=== PATIENT | female | born 1940 | race Caucasian/White ===

== ENCOUNTER 2017-03-11 09:36 | Inpatient (IN) | payer OTHER ==
[2017-03-11] MEDS ORDERED: NS 1000 ML 1,000 ML IV ONE (11:39)
[2017-03-11 11:59] VITALS: BMI 24.2
[2017-03-11 12:15] LABS: BASOPHILS # (AUTO) 0.1 X10^3/uL (0.0-0.1); EOSINOPHILS # (AUTO) 0.1 x10^3/uL (0.0-0.2); HEMATOCRIT 35.3 % (36.0-47.0); HEMOGLOBIN 12.4 g/dL (12.0-16.0); LYMPHOCYTES # (AUTO) 1.6 X10^3/uL (1.3-2.9); LYMPHOCYTES % (AUTO) 23.2 % (21.0-51.0); MEAN CORPUSCULAR HEMOGLOBIN 32.5 pg (27.0-34.0); MEAN CORPUSCULAR VOLUME 92.7 fL (80.0-100.0); MONOCYTES # (AUTO) 0.6 x10^3/uL (0.3-0.8); MONOCYTES % (AUTO) 8.7 % (0.0-13.0); NEUTROPHILS # (AUTO) 4.5 x10^3/uL (2.2-4.8); NEUTROPHILS % (AUTO) 66.1 % (42.0-75.0); PLATELET COUNT 326 X10^3/uL (150.0-450.0); RED BLOOD COUNT 3.81 X10^6/uL (3.5-5.4); RED CELL DISTRIBUTION WIDTH 14.4 % (11.6-16.5); WHITE BLOOD COUNT 6.9 X10^3/uL (3.6-10.0)
[2017-03-11 12:31] LABS: ALANINE AMINOTRANSFERASE 34 Units/L (12-78); ALBUMIN 4.2 g/dL (3.4-5.0); ALKALINE PHOSPHATASE 81 Units/L (46-116); ASPARTATE AMINO TRANSFERASE 19 Units/L (15-37); BLOOD UREA NITROGEN 26 mg/dL (7-18); CALCIUM 9.8 mg/dL (8.5-10.1); CARBON DIOXIDE 31.2 mmol/L (21-32); CHLORIDE 92 mmol/L (98-107); CREATININE 0.93 mg/dL (0.55-1.02); GLUCOSE 103 mg/dL (65-99); SODIUM 127 mmol/L (136-145); TOTAL PROTEIN 7.9 g/dL (6.4-8.2); eGFR BLACK RACES > 60 (>60); eGFR NON BLACK RACES > 60 (>60)
[2017-03-11 13:22] LABS: BILIRUBIN,URINE NEGATIVE (NEGATIVE); BLOOD/HEMOGLOBIN,URINE NEGATIVE (NEGATIVE); GLUCOSE, URINE NEGATIVE (NEGATIVE); KETONES,URINE NEGATIVE (NEGATIVE); LEUKOCYTE ESTERASE ,URINE 1+ (NEGATIVE); NITRITES,URINE NEGATIVE (NEGATIVE); PROTEIN,URINE NEGATIVE (NEGATIVE); UROBILINOGEN,URINE NORMAL (NORMAL)
[2017-03-11 13:28] LABS: AMORPHOUS SEDIMENT,UR TRACE /HPF (NEGATIVE); APPEARANCE,URINE SLIGHTLY HAZY (CLEAR); BACTERIA,URINE 2+ /HPF (NEGATIVE); COLOR,URINE YELLOW (YELLOW); RBC,URINE 0-1 /HPF (NEGATIVE); SQUAMOUS EPITHELIAL CELL,UR FEW /HPF (NEGATIVE)
--- NOTE | 2017-03-11 15:54 | CT ---
HEAD CT WITHOUT IV CONTRAST CLINICAL INDICATION: History of CVA. Possible CVA. Brain surgery 1 month ago. TECHNIQUE: Axial CT images from skull base to vertex without IV contrast.Dose reduction techniques i ncluding Automated Exposure Control (AEC) and adjustment of mA and kV were utlized. COMPARISON: 01/02/2011 FINDINGS: Diffuse patchy and confluent white matter hypoattenuation with associated volume loss suprasellar an eurysm clips are present. More focal encephalomalacia in the left temporal lobe. Stable lacunar infa rct in the right head of caudate. There is no evidence of acute infarction, intracranial hemorrhage, mass or mass effect, or abnormal extra-axial collection. The density of the larger dural venous sin uses is normal. The ventricles are normal in size, shape and position. The skull base and calvarium are normal. The included paranasal sinuses and mastoid air cells are predominantly clear. IMPRESSION: 1. No acute intracranial abnormality. If there is definite, focal, acute neurologic deficit, MRI wit h diffusion-weighted imaging would be more sensitive for detection of acute stroke. 2. Chronic microangiopathic changes and ex vacuo dilatation of the ventricles and sulci. Suprasellar aneurysm clips. Old lacunar infarct in the right caudate head as well as encephalomalacia in the le ft temporal lobe. Reported By:
--- NOTE | 2017-03-11 16:07 | RAD ---
Chest, one view Indication: Altered mental status Comparison: 03/21/2015 Findings: There is ill-defined haziness of the left mid to lower lung. No focal right lung infiltrat e identified. There are chronic interstitial changes of both lungs. Previous left mastectomy and axi llary dissection noted with left breast implant. Unremarkable cardiac silhouette. Impression: 1. Haziness of the left lung may be related to superimposition artifact from breast implant, althoug h infiltrate, atelectasis, and/or pleural effusion cannot be excluded. Correlation recommended. Two- view chest could be helpful. Reported By:
[2017-03-11] MEDS: NS 1000 ML 1,000 ML IV SCH (17:46)
[2017-03-11] MEDS: XANAX PO PRN (20:42)
[2017-03-11] MEDS: PEPCID TAB 20 MG PO SCH (20:42)
[2017-03-11] MEDS: LIPITOR TAB 20 MG PO SCH (20:42)
[2017-03-11] MEDS: HYDROCHLOROTHIAZIDE 25 MG TAB PO SCH (20:42)
[2017-03-11] MEDS: LOPRESSOR TAB 50 MG PO SCH (20:50)
[2017-03-11] MEDS ORDERED: PLAVIX PO SCH (21:00)
[2017-03-12] MEDS: NS 1000 ML 1,000 ML IV SCH ×2 (05:48→22:15)
[2017-03-12 06:07] LABS: BASOPHILS # (AUTO) 0.1 X10^3/uL (0.0-0.1); BASOPHILS % (AUTO) 0.8 % (0.2-1.0); EOSINOPHILS # (AUTO) 0.1 x10^3/uL (0.0-0.2); EOSINOPHILS % (AUTO) 2.2 % (0.9-2.9); HEMATOCRIT 32.1 % (36.0-47.0); HEMOGLOBIN 11.4 g/dL (12.0-16.0); LYMPHOCYTES # (AUTO) 1.8 X10^3/uL (1.3-2.9); LYMPHOCYTES % (AUTO) 27.3 % (21.0-51.0); MEAN CORPUSCULAR HEMOGLOBIN 32.8 pg (27.0-34.0); MEAN CORPUSCULAR HGB CONC 35.6 g/dL (33.0-35.0); MEAN CORPUSCULAR VOLUME 92.3 fL (80.0-100.0); MEAN PLATELET VOLUME 7.4 fL (7.4-11.0); MONOCYTES # (AUTO) 0.7 x10^3/uL (0.3-0.8); MONOCYTES % (AUTO) 10.6 % (0.0-13.0); NEUTROPHILS # (AUTO) 3.8 x10^3/uL (2.2-4.8); NEUTROPHILS % (AUTO) 59.1 % (42.0-75.0); PLATELET COUNT 284 X10^3/uL (150.0-450.0); RED BLOOD COUNT 3.48 X10^6/uL (3.5-5.4); RED CELL DISTRIBUTION WIDTH 14.3 % (11.6-16.5); WHITE BLOOD COUNT 6.5 X10^3/uL (3.6-10.0)
[2017-03-12 06:43] LABS: ALANINE AMINOTRANSFERASE 28 Units/L (12-78); ALBUMIN 3.6 g/dL (3.4-5.0); ALKALINE PHOSPHATASE 69 Units/L (46-116); ASPARTATE AMINO TRANSFERASE 18 Units/L (15-37); BLOOD UREA NITROGEN 16 mg/dL (7-18); CALCIUM 9.4 mg/dL (8.5-10.1); CARBON DIOXIDE 26.3 mmol/L (21-32); CHLORIDE 98 mmol/L (98-107); CREATININE 0.62 mg/dL (0.55-1.02); GLUCOSE 86 mg/dL (65-99); SODIUM 132 mmol/L (136-145); TOTAL PROTEIN 6.8 g/dL (6.4-8.2); eGFR BLACK RACES > 60 (>60); eGFR NON BLACK RACES > 60 (>60)
[2017-03-12] MEDS ORDERED: ASPIRIN PO SCH (09:00)
[2017-03-12] MEDS ORDERED: CELEXA PO SCH ×2 (09:00→11:06)
[2017-03-12] MEDS: XANAX PO PRN ×2 (10:29→22:15)
[2017-03-12] MEDS: PEPCID TAB 20 MG PO SCH ×2 (10:29→20:34)
[2017-03-12] MEDS: COZAAR PO SCH (10:29)
[2017-03-12] MEDS: LOPRESSOR TAB 50 MG PO SCH (10:30)
[2017-03-12] MEDS: HYDROCHLOROTHIAZIDE 25 MG TAB PO SCH ×2 (10:30→20:36)
--- NOTE | 2017-03-12 11:21 | DR.UPDATE ---
H&P Update History and Physical Update: WAS SEEN IN OUR OFFICE TODAY. A H&P WAS COMPLETED PRIOR TO ADMISSION. PATIENT HAS BEEN SEEN AND EXAMINED WITH NO CHANGES NOTED. Changes noted: NO Yes with the following:
[2017-03-12 11:26] LABS: BILIRUBIN,URINE NEGATIVE (NEGATIVE); BLOOD/HEMOGLOBIN,URINE NEGATIVE (NEGATIVE); GLUCOSE, URINE NEGATIVE (NEGATIVE); KETONES,URINE 1+ (NEGATIVE); LEUKOCYTE ESTERASE ,URINE 2+ (NEGATIVE); NITRITES,URINE NEGATIVE (NEGATIVE); PH,URINE 6.5 (5.0 - 8.0); PROTEIN,URINE NEGATIVE (NEGATIVE); UROBILINOGEN,URINE NORMAL (NORMAL)
[2017-03-12 11:28] LABS: COLOR,URINE YELLOW (YELLOW)
[2017-03-12 11:42] LABS: RBC,URINE RARE /HPF (NEGATIVE)
[2017-03-12 11:43] LABS: AMORPHOUS SEDIMENT,UR 1+ /HPF (NEGATIVE); BACTERIA,URINE 2+ /HPF (NEGATIVE); RENAL EPITHELIAL CELLS,URINE RARE /HPF (NEGATIVE); SQUAMOUS EPITHELIAL CELL,UR NUMEROUS /HPF (NEGATIVE)
--- NOTE | 2017-03-12 11:53 | RAD ---
HISTORY: Shortness of breath Study: PA and lateral chest Comparison: Yesterday Findings: The trachea is midline. The cardiac silhouette is unremarkable. The lungs are clear without focal infiltrate or effusion. The bony thorax is unremarkable. There are surgical clips in the left axil la. IMPRESSION: 1. No acute cardiopulmonary disease. Reported By:
[2017-03-12 12:19] LABS: APPEARANCE,URINE SLIGHTLY HAZY (CLEAR)
[2017-03-12] MEDS: COLACE CAP 100 MG PO PRN (20:34)
[2017-03-12] MEDS: LIPITOR TAB 20 MG PO SCH (20:36)
[2017-03-12] MEDS: RESTORIL CAP 15 MG PO PRN (20:36)
[2017-03-12] MEDS ORDERED: MILK OF MAGNESIA PO PRN (21:00)
[2017-03-13] MEDS: NS 1000 ML 1,000 ML IV SCH ×3 (02:40→15:40)
[2017-03-13 06:22] LABS: BASOPHILS # (AUTO) 0.1 X10^3/uL (0.0-0.1); BASOPHILS % (AUTO) 0.8 % (0.2-1.0); EOSINOPHILS # (AUTO) 0.1 x10^3/uL (0.0-0.2); HEMATOCRIT 32.6 % (36.0-47.0); HEMOGLOBIN 11.5 g/dL (12.0-16.0); LYMPHOCYTES # (AUTO) 1.7 X10^3/uL (1.3-2.9); LYMPHOCYTES % (AUTO) 23.6 % (21.0-51.0); MEAN CORPUSCULAR HEMOGLOBIN 32.4 pg (27.0-34.0); MEAN CORPUSCULAR HGB CONC 35.2 g/dL (33.0-35.0); MEAN CORPUSCULAR VOLUME 92.2 fL (80.0-100.0); MEAN PLATELET VOLUME 7.2 fL (7.4-11.0); MONOCYTES # (AUTO) 0.7 x10^3/uL (0.3-0.8); MONOCYTES % (AUTO) 9.1 % (0.0-13.0); NEUTROPHILS # (AUTO) 4.7 x10^3/uL (2.2-4.8); NEUTROPHILS % (AUTO) 65.5 % (42.0-75.0); PLATELET COUNT 294 X10^3/uL (150.0-450.0); RED BLOOD COUNT 3.54 X10^6/uL (3.5-5.4); WHITE BLOOD COUNT 7.2 X10^3/uL (3.6-10.0)
[2017-03-13 06:31] LABS: ALANINE AMINOTRANSFERASE 29 Units/L (12-78); ALBUMIN 3.5 g/dL (3.4-5.0); ALKALINE PHOSPHATASE 73 Units/L (46-116); ASPARTATE AMINO TRANSFERASE 16 Units/L (15-37); BLOOD UREA NITROGEN 8 mg/dL (7-18); CALCIUM 9.3 mg/dL (8.5-10.1); CARBON DIOXIDE 28.7 mmol/L (21-32); CHLORIDE 99 mmol/L (98-107); CREATININE 0.51 mg/dL (0.55-1.02); GLUCOSE 91 mg/dL (65-99); SODIUM 133 mmol/L (136-145); TOTAL PROTEIN 6.9 g/dL (6.4-8.2); eGFR BLACK RACES > 60 (>60); eGFR NON BLACK RACES > 60 (>60)
[2017-03-13] MEDS ORDERED: K-DUR TAB 20 MEQ PO PRN (06:43)
[2017-03-13] MEDS ORDERED: K-RIDER 10 MEQ/NS 100 ML 10 MEQ/100 ML BAG IV PRN (06:43)
[2017-03-13] MEDS ORDERED: K-LYTE EFFERVESCENT PO PRN (06:43)
[2017-03-13] MEDS ORDERED: POTASSIUM CHLORIDE LIQ 20 MEQ UDC PO PRN (06:43)
[2017-03-13] MEDS: HYDROCHLOROTHIAZIDE 25 MG TAB PO SCH ×3 (08:33→21:20)
[2017-03-13] MEDS: TOPROL XL PO SCH ×2 (08:33→10:01)
[2017-03-13] MEDS: PEPCID TAB 20 MG PO SCH ×2 (08:33→21:21)
[2017-03-13] MEDS: XANAX PO PRN ×2 (08:33→21:20)
[2017-03-13] MEDS: COZAAR PO SCH (11:25)
[2017-03-13] MEDS ORDERED: HALDOL INJ IM ONE (15:15)
[2017-03-13] MEDS: ROCEPHIN VIAL 1 GM 1 GM in NS 50 ML IV + SPIKE MINIBAG* 50 ML IV SCH (17:16)
[2017-03-13] MEDS: PROTONIX INJ 40 MG VIAL IVP SCH (17:16)
[2017-03-13] MEDS: RESTORIL CAP 15 MG PO PRN (21:20)
[2017-03-13] MEDS: LIPITOR TAB 20 MG PO SCH (21:20)
[2017-03-14 06:35] LABS: ALANINE AMINOTRANSFERASE 30 Units/L (12-78); ALBUMIN 3.6 g/dL (3.4-5.0); ALKALINE PHOSPHATASE 75 Units/L (46-116); ASPARTATE AMINO TRANSFERASE 21 Units/L (15-37); BLOOD UREA NITROGEN 9 mg/dL (7-18); CALCIUM 9.6 mg/dL (8.5-10.1); CARBON DIOXIDE 29.2 mmol/L (21-32); CHLORIDE 96 mmol/L (98-107); CREATININE 0.59 mg/dL (0.55-1.02); GLUCOSE 89 mg/dL (65-99); SODIUM 130 mmol/L (136-145); TOTAL PROTEIN 7.2 g/dL (6.4-8.2); eGFR BLACK RACES > 60 (>60); eGFR NON BLACK RACES > 60 (>60)
[2017-03-14 07:45] LABS: BASOPHILS # (AUTO) 0.1 X10^3/uL (0.0-0.1); BASOPHILS % (AUTO) 1.3 % (0.2-1.0); EOSINOPHILS # (AUTO) 0.1 x10^3/uL (0.0-0.2); EOSINOPHILS % (AUTO) 0.9 % (0.9-2.9); HEMATOCRIT 34.6 % (36.0-47.0); HEMOGLOBIN 12.3 g/dL (12.0-16.0); LYMPHOCYTES # (AUTO) 1.7 X10^3/uL (1.3-2.9); MEAN CORPUSCULAR HEMOGLOBIN 32.9 pg (27.0-34.0); MEAN CORPUSCULAR HGB CONC 35.5 g/dL (33.0-35.0); MEAN CORPUSCULAR VOLUME 92.8 fL (80.0-100.0); MEAN PLATELET VOLUME 6.7 fL (7.4-11.0); MONOCYTES # (AUTO) 0.6 x10^3/uL (0.3-0.8); MONOCYTES % (AUTO) 8.8 % (0.0-13.0); NEUTROPHILS # (AUTO) 4.5 x10^3/uL (2.2-4.8); PLATELET COUNT 309 X10^3/uL (150.0-450.0); RED BLOOD COUNT 3.73 X10^6/uL (3.5-5.4); RED CELL DISTRIBUTION WIDTH 14.2 % (11.6-16.5); WHITE BLOOD COUNT 6.9 X10^3/uL (3.6-10.0)
[2017-03-14] MEDS: NS 1000 ML 1,000 ML IV SCH ×2 (08:03→18:03)
[2017-03-14] MEDS: XANAX PO PRN ×2 (08:24→20:57)
[2017-03-14] MEDS: ROCEPHIN VIAL 1 GM 1 GM in NS 50 ML IV + SPIKE MINIBAG* 50 ML IV SCH (08:24)
[2017-03-14] MEDS: HYDROCHLOROTHIAZIDE 25 MG TAB PO SCH ×2 (08:24→20:57)
[2017-03-14] MEDS: PROTONIX INJ 40 MG VIAL IVP SCH (08:24)
[2017-03-14] MEDS: COZAAR PO SCH (08:24)
[2017-03-14] MEDS: TOPROL XL PO SCH (08:24)
[2017-03-14] MEDS: PEPCID TAB 20 MG PO SCH ×2 (08:25→20:57)
--- NOTE | 2017-03-14 09:01 | RAD ---
HISTORY: Shortness of breath Study: Single view of the chest Comparison: March 12, 2017 Findings: The patient is slightly rotated. The cardiac silhouette is unremarkable. The lungs are clear witho ut focal infiltrate or effusion. Hazy opacification over the left lower lobe may reflect overlying s oft tissues. If symptoms persist and if practical followup exam to include PA and lateral views may be helpful. The aortic knob is partially calcified. IMPRESSION: 1. No acute cardiopulmonary disease. Reported By:
[2017-03-14] MEDS: VANCOMYCIN 1 GM PREMIX (ADDVANTAGE) 250 ML IV SCH (20:53)
[2017-03-14] MEDS: RESTORIL CAP 15 MG PO PRN (20:56)
[2017-03-14] MEDS: LIPITOR TAB 20 MG PO SCH (20:56)
[2017-03-15] MEDS: NS 1000 ML 1,000 ML IV SCH ×2 (05:29→07:23)
[2017-03-15 05:55] LABS: ALANINE AMINOTRANSFERASE 29 Units/L (12-78); ALBUMIN 3.4 g/dL (3.4-5.0); ALKALINE PHOSPHATASE 77 Units/L (46-116); ASPARTATE AMINO TRANSFERASE 17 Units/L (15-37); BLOOD UREA NITROGEN 8 mg/dL (7-18); CALCIUM 9.4 mg/dL (8.5-10.1); CARBON DIOXIDE 30.2 mmol/L (21-32); CHLORIDE 98 mmol/L (98-107); CREATININE 0.64 mg/dL (0.55-1.02); GLUCOSE 92 mg/dL (65-99); SODIUM 134 mmol/L (136-145); TOTAL PROTEIN 6.8 g/dL (6.4-8.2); eGFR BLACK RACES > 60 (>60); eGFR NON BLACK RACES > 60 (>60)
--- NOTE | 2017-03-15 06:11 | RAD ---
HISTORY: Shortness of breath Study: Chest one view Comparison: March 14, 2017 Findings: The trachea is midline. The cardiac silhouette is unremarkable. The aorta is calcified. The lungs a re clear without focal infiltrate or effusion. The bony thorax is unremarkable. IMPRESSION: 1. No acute cardiopulmonary disease. Reported By:
[2017-03-15 06:18] LABS: BASOPHILS # (AUTO) 0.1 X10^3/uL (0.0-0.1); BASOPHILS % (AUTO) 1.1 % (0.2-1.0); EOSINOPHILS # (AUTO) 0.1 x10^3/uL (0.0-0.2); EOSINOPHILS % (AUTO) 2.3 % (0.9-2.9); HEMATOCRIT 32.9 % (36.0-47.0); HEMOGLOBIN 11.7 g/dL (12.0-16.0); LYMPHOCYTES # (AUTO) 1.7 X10^3/uL (1.3-2.9); LYMPHOCYTES % (AUTO) 27.8 % (21.0-51.0); MEAN CORPUSCULAR HEMOGLOBIN 32.9 pg (27.0-34.0); MEAN CORPUSCULAR HGB CONC 35.6 g/dL (33.0-35.0); MEAN CORPUSCULAR VOLUME 92.4 fL (80.0-100.0); MEAN PLATELET VOLUME 7.2 fL (7.4-11.0); MONOCYTES # (AUTO) 0.6 x10^3/uL (0.3-0.8); MONOCYTES % (AUTO) 9.1 % (0.0-13.0); NEUTROPHILS # (AUTO) 3.7 x10^3/uL (2.2-4.8); NEUTROPHILS % (AUTO) 59.7 % (42.0-75.0); PLATELET COUNT 277 X10^3/uL (150.0-450.0); RED BLOOD COUNT 3.56 X10^6/uL (3.5-5.4); RED CELL DISTRIBUTION WIDTH 14.4 % (11.6-16.5); WHITE BLOOD COUNT 6.2 X10^3/uL (3.6-10.0)
[2017-03-15] MEDS: VANCOMYCIN 1 GM PREMIX (ADDVANTAGE) 250 ML IV SCH ×2 (08:03→20:35)
[2017-03-15] MEDS: COZAAR PO SCH (08:04)
[2017-03-15] MEDS: PROTONIX INJ 40 MG VIAL IVP SCH (08:04)
[2017-03-15] MEDS: PEPCID TAB 20 MG PO SCH ×2 (08:05→20:40)
[2017-03-15] MEDS: HYDROCHLOROTHIAZIDE 25 MG TAB PO SCH ×2 (08:05→20:37)
[2017-03-15] MEDS: TOPROL XL PO SCH (08:05)
[2017-03-15] MEDS: XANAX PO PRN ×3 (08:05→20:37)
[2017-03-15] MEDS ORDERED: LEVSIN/MAALOX/LIDOC VISC PO PRN (09:22)
[2017-03-15] MEDS: MEGACE PO SCH ×2 (10:04→20:37)
--- NOTE | 2017-03-15 10:32 | PCM.PROG ---
Progress Note - Progress Note for Day of Date: 03/15/17 - Subjective Subjective: IS ALERT AND ORIENTED ON MORNING ROUNDS. PHYSICAL THERAPY IS IN ROOM AND HAS PATIENT WALKING TO BED FROM THE BATHROOM. SHE IS NOTED WITH COMPLAINTS OF EPIGASTRIC AND SUPRAPUBIC PAIN. PATIENT'S STATES THAT SHE HAS BEEN CONFUSED OVER THE WEEKEND, BUT THAT SEEMS TO HAVE IMPROVED THIS MORNING. ON EXAMINATION, LUNGS ARE CLEAR TO AUSCULTATION. BOWEL SOUNDS ARE NORMAL IN ALL QUADRANTS. VITALS THIS AM ARE 97.8-59-13-96%-148/54. CBC WNL EXCEPT HCT 11.7, HCT 32.9. CMP WNL EXCEPT SODIUM 134, POTASSIUM 3.3. URINE MICROBIOLOGY REPORTS ENTEROCOCCUS FAECALIS, WHICH IS SENSITIVE TO THE VANCOMYCIN THAT SHE IS CURRENTLY ON. WE WILL START HER ON GI COCKTAIL 15ML QID FOR EPIGASTRIC PAIN AND MEGACE 40MG BID TO STIMULATE HER APPETITE. WE WILL RECKECK LABS AND FOLLOW UP WITH PATIENT IN AM. - Past Medical Family Social History Past Med/Fam/Surg Hx: No changes since H&P Allergies: Allergies amoxicillin Allergy (Verified 03/11/17 11:37) Penicillins Allergy (Verified 03/11/17 11:37) - Review of Systems ROS: No change since H&P - Vital Signs and I&O's Vital Signs: Temperature 98.5 F Pulse Rate [Apical] 59 Respiratory Rate 14 Blood Pressure [Right Calf] 164/73 Blood Pressure [Right Arm] 113/55 Blood Pressure 155/77 O2 Sat by Pulse Oximetry 96 Intake and Output: Intake & Output 03/12/17 03/13/17 03/14/17 03/15/17 11:59 11:59 11:59 11:59 Intake Total 2318 2102 2046 3055 Output Total 1650 2900 601 1200 Balance 668 -[phone] - Physical Exam Oriented: Normal Eyes: Normal Ear: Normal Nose: Normal Throat: Normal Respiratory: Normal Cardiovascular: Normal : Normal Auscultation: Bowel Sounds: Normal Palpation: Normal Tenderness: Suprapubic. negative: Normal, Diffuse, RUQ, RLQ, LUQ, LLQ, Epigastric, Periumbilical, Mild, Moderate, Severe, Rebound, Guarding, Rigidity, Other Skin: Normal. negative: Decreased Turgur, Rash, Papular, Macular, Maculopapular , Vesicular, Pustular, Petechial, Red, Tender, Hot, Diaphoresis, Wound, Bruising , Ecchymosis, Other Musculoskeletal: Normal. negative: Right, Left, Shoulder, Clavicle, Arm, Elbow , Forearm, Wrist, Hand, Hip, Thigh, Knee, Leg, Ankle, Foot, Back:Thoracic, Back: Lumbar, Back:Midline, Back:Paraspinous, Pelvis, Swelling, Tender, Deformity, Pulse Deficit, Motor Deficit, Sensory Deficit, Instability, Crepitance Psychiatric: Normal. negative: Anxiety, Depression, Agitation, Other Mood Description: Calm. negative: Angry, Apathetic, Depressed, Fearful, Flat, Happy, Hostile, Sad, Suspicious, Withdrawn, Anxious, Appropriate, Labile Affect: Anxious. negative: Angry, Depressed, Flat, Hysterical, Quiet, Violent, Normal Speech Pattern: Clear, Appropriate - Laboratory and Diagnostics Result Diagrams: 03/15/17 05:20 03/15/17 08:54 Labs: 03/12/17 11:04 Urine,Clean Catch Urine Culture - Final Enterococcus Faecalis Laboratory WBC 6.2 X10^3/uL (3.6-10.0) 03/15/17 05:20 RBC 3.56 X10^6/uL (3.5-5.4) 03/15/17 05:20 Hgb 11.7 g/dL (12.0-16.0) L 03/15/17 05:20 Hct 32.9 % (36.0-47.0) L 03/15/17 05:20 MCV 92.4 fL (80.0-100.0) 03/15/17 05:20 MCH 32.9 pg (27.0-34.0) 03/15/17 05:20 MCHC 35.6 g/dL (33.0-35.0) H 03/15/17 05:20 RDW 14.4 % (11.6-16.5) 03/15/17 05:20 Plt Count 277 X10^3/uL (150.0-450.0) 03/15/17 05:20 MPV 7.2 fL (7.4-11.0) L 03/15/17 05:20 Neut % 59.7 % (42.0-75.0) 03/15/17 05:20 Lymph % 27.8 % (21.0-51.0) 03/15/17 05:20 [place] % 9.1 % (0.0-13.0) 03/15/17 05:20 Eos % 2.3 % (0.9-2.9) 03/15/17 05:20 Baso % 1.1 % (0.2-1.0) H 03/15/17 05:20 Neut # 3.7 x10^3/uL (2.2-4.8) 03/15/17 05:20 Lymph # 1.7 X10^3/uL (1.3-2.9) 03/15/17 05:20 [place] # 0.6 x10^3/uL (0.3-0.8) 03/15/17 05:20 Eos # 0.1 x10^3/uL (0.0-0.2) 03/15/17 05:20 Baso # 0.1 X10^3/uL (0.0-0.1) 03/15/17 05:20 Absolute Nucleated RBC 0.1 /100WBC 03/15/17 05:20 Sodium 134 mmol/L (136-145) L 03/15/17 05:20 Corrected Sodium TNP 03/15/17 05:20 Potassium 3.7 mmol/L (3.5-5.1) 03/15/17 08:54 Chloride 98 mmol/L (98-107) 03/15/17 05:20 Carbon Dioxide 30.2 mmol/L (21-32) 03/15/17 05:20 BUN 8 mg/dL (7-18) 03/15/17 05:20 Creatinine 0.64 mg/dL (0.55-1.02) 03/15/17 05:20 Est GFR (MDRD) Af Amer > 60 (>60) 03/15/17 05:20 Est GFR (MDRD) Non-Af > 60 (>60) 03/15/17 05:20 Glucose 92 mg/dL (65-99) 03/15/17 05:20 Calcium 9.4 mg/dL (8.5-10.1) 03/15/17 05:20 Corrected Calcium TNP 03/15/17 05:20 Magnesium 2.0 mg/dL (1.7-2.9) 03/11/17 12:00 Total Bilirubin 0.40 mg/dL (0.2-1.0) 03/15/17 05:20 AST 17 Units/L (15-37) 03/15/17 05:20 ALT 29 Units/L (12-78) 03/15/17 05:20 Alkaline Phosphatase 77 Units/L (46-116) 03/15/17 05:20 Total Protein 6.8 g/dL (6.4-8.2) 03/15/17 05:20 Albumin 3.4 g/dL (3.4-5.0) 03/15/17 05:20 Globulin 3.4 g/dL (2.5-4.5) 03/15/17 05:20 Albumin/Globulin Ratio 1.0 Ratio (1.1-2.1) L 03/15/17 05:20 Specimen Type Clean catch urine 03/12/17 11:04 Urine Color Yellow (YELLOW) 03/12/17 11:04 Urine Appearance Slightly hazy (CLEAR) 03/12/17 11:04 Urine pH 6.5 (5.0 - 8.0) 03/12/17 11:04 Ur Specific [place] 1.010 (1.000-1.030) 03/12/17 11:04 Urine Protein Negative (NEGATIVE) 03/12/17 11:04 Urine Glucose (UA) Negative (NEGATIVE) 03/12/17 11:04 Urine Ketones 1+ (NEGATIVE) 03/12/17 11:04 Urine Occult Blood Negative (NEGATIVE) 03/12/17 11:04 Urine Nitrite Negative (NEGATIVE) 03/12/17 11:04 Urine Bilirubin Negative (NEGATIVE) 03/12/17 11:04 Urine Urobilinogen Normal (NORMAL) 03/12/17 11:04 Ur Leukocyte Esterase 2+ (NEGATIVE) 03/12/17 11:04 Urine RBC Rare /HPF (NEGATIVE) 03/12/17 11:04 Urine WBC 10 - 20 with clumps /HPF (NEGATIVE) 03/12/17 11:04 Ur Squamous Epith Cells Numerous /HPF (NEGATIVE) 03/12/17 11:04 Ur Renal Epithelial Cell Rare /HPF (NEGATIVE) 03/12/17 11:04 Amorphous Sediment 1+ /HPF (NEGATIVE) 03/12/17 11:04 Urine Bacteria 2+ /HPF (NEGATIVE) 03/12/17 11:04 Ur Culture Indicated? Yes/culture set up 03/12/17 11:04 - Plan (1) Enterococcus UTI Status: Acute Plan: VANCOMYCIN 1 GM IV Q12H, CONTINUE TO MONITOR (2) Weakness generalized Status: Acute Plan: CONTINUE NORMAL SALINE, START MEGACE 40MG PO BID, CONTINUE TO MONITOR (3) GERD (gastroesophageal reflux disease) Status: Chronic Qualifiers: Esophagitis presence: esophagitis presence not specified Qualified Code(s) : K21.9 - Gastro-esophageal reflux disease without esophagitis Plan: CONTINUE PEPCID 20MG PO BID, CONTINUE PROTONIX 40MG IV DAILY, START GI COCKTAIL 15ML PO QID, CONTINUE TO MONITOR (4) HTN (hypertension) Status: Chronic Qualifiers: Hypertension type: essential hypertension Qualified Code(s): I10 - Essential (primary) hypertension Plan: CONTINUE TOPROL XL 50MG PO DAILY, CONTINUE TO MONITOR, CONTINUE COZAAR 100MG PO DAILY, CONTINUE HCTZ 25MG PO BID (5) Anxiety Status: Chronic Plan: CONTINUE XANAX 0.5MG TID PRN, CONTINUE TO MONITOR (6) Hyperlipidemia Status: Chronic Qualifiers: Hyperlipidemia type: mixed hyperlipidemia Qualified Code(s): E78.2 - Mixed hyperlipidemia Plan: CONTINUE LIPITOR 20MG PO HS, CONTINUE TO MONITOR
--- NOTE | 2017-03-15 12:55 | MRI ---
STUDY: MRI OF THE BRAIN WITHOUT GADOLINIUM HISTORY: Altered mental status. Weakness. History CVA. Headaches and tremors. Technique: Multiplanar multi-sequence MRI of the brain was obtained utilizing standard departmental protocol. Sagittal and axial T1, axial T2, FLAIR, diffusion (DWI/ADC) images through the brain were performed. Comparison: Head CT dated March 11, 2017. Findings: The sulci, cisterns and ventricles are prominent consistent with diffuse volume loss. There are conf luent and scattered foci of T2 prolongation in the periventricular and subcortical white matter of b oth hemispheres. This is a nonspecific finding which likely represents microangiopathic change in a patient of this age. There is focal encephalomalacia involving the anterior left temporal lobe. Ther e is extensive confluent T2 hyperintensity in the periventricular and subcortical white matter of th e left temporal. There are abnormal focal susceptibility effects in the right and left supra clinoid regions, which c orrespond to foci of beam hardening from aneurysm coils seen on the prior head CT. There is a puncta te focus of susceptibility in the right frontal centrum semiovale. There is no evidence of acute ter ritorial infarction, hemorrhage, mass, mass effect, or midline shift. There are no abnormal intra-ax ial or extra-axial fluid collections. The major intracranial vascular flow voids appear intact. The right vertebral artery appears dominan t. IMPRESSION: 1. Focal encephalomalacia in the left anterior temporal lobe, with periventricular and subcortical gliosis in the left upper lobe. 2. Abnormal susceptibility effects in region of the supra clinoid ICA bilaterally, most consistent with aneurysm coils. 3. Nonspecific white matter change and volume loss. Reported By:
[2017-03-15] MEDS: COLACE CAP 100 MG PO PRN (20:36)
[2017-03-15] MEDS: LIPITOR TAB 20 MG PO SCH (20:36)
[2017-03-15] MEDS: RESTORIL CAP 15 MG PO PRN (20:36)
[2017-03-16 06:13] LABS: BASOPHILS # (AUTO) 0.1 X10^3/uL (0.0-0.1); EOSINOPHILS # (AUTO) 0.2 x10^3/uL (0.0-0.2); EOSINOPHILS % (AUTO) 2.3 % (0.9-2.9); HEMATOCRIT 32.9 % (36.0-47.0); HEMOGLOBIN 11.6 g/dL (12.0-16.0); LYMPHOCYTES # (AUTO) 2.2 X10^3/uL (1.3-2.9); LYMPHOCYTES % (AUTO) 32.1 % (21.0-51.0); MEAN CORPUSCULAR HEMOGLOBIN 32.7 pg (27.0-34.0); MEAN CORPUSCULAR HGB CONC 35.3 g/dL (33.0-35.0); MEAN CORPUSCULAR VOLUME 92.5 fL (80.0-100.0); MEAN PLATELET VOLUME 7.2 fL (7.4-11.0); MONOCYTES # (AUTO) 0.7 x10^3/uL (0.3-0.8); MONOCYTES % (AUTO) 9.6 % (0.0-13.0); NEUTROPHILS # (AUTO) 3.8 x10^3/uL (2.2-4.8); PLATELET COUNT 300 X10^3/uL (150.0-450.0); RED BLOOD COUNT 3.56 X10^6/uL (3.5-5.4); RED CELL DISTRIBUTION WIDTH 14.1 % (11.6-16.5); WHITE BLOOD COUNT 6.8 X10^3/uL (3.6-10.0)
[2017-03-16 06:18] LABS: ALANINE AMINOTRANSFERASE 32 Units/L (12-78); ALBUMIN 3.5 g/dL (3.4-5.0); ALKALINE PHOSPHATASE 77 Units/L (46-116); ASPARTATE AMINO TRANSFERASE 16 Units/L (15-37); BLOOD UREA NITROGEN 11 mg/dL (7-18); CALCIUM 9.5 mg/dL (8.5-10.1); CARBON DIOXIDE 30.5 mmol/L (21-32); CHLORIDE 100 mmol/L (98-107); CREATININE 0.65 mg/dL (0.55-1.02); GLUCOSE 90 mg/dL (65-99); SODIUM 136 mmol/L (136-145); eGFR BLACK RACES > 60 (>60); eGFR NON BLACK RACES > 60 (>60)
--- NOTE | 2017-03-16 06:24 | RAD ---
HISTORY: Shortness of breath Study: Chest one view Comparison: March 15, 2017, March 14, 2017 Findings: The trachea is midline. The cardiac silhouette is upper limits normal in size. No congestive heart failure is noted.. The lungs are clear without focal infiltrate or effusion. The bony thorax is un remarkable. IMPRESSION: 1. No acute cardiopulmonary disease. Reported By:
[2017-03-16] MEDS: NS 1000 ML 1,000 ML IV SCH ×3 (07:03→21:26)
[2017-03-16] MEDS: COZAAR PO SCH (08:44)
[2017-03-16] MEDS: PROTONIX INJ 40 MG VIAL IVP SCH (08:44)
[2017-03-16] MEDS: HYDROCHLOROTHIAZIDE 25 MG TAB PO SCH ×2 (08:45→20:58)
[2017-03-16] MEDS: PEPCID TAB 20 MG PO SCH ×2 (08:45→20:58)
[2017-03-16] MEDS: MEGACE PO SCH ×2 (08:45→20:58)
[2017-03-16] MEDS: XANAX PO PRN ×2 (08:45→20:59)
[2017-03-16] MEDS: TOPROL XL PO SCH (08:45)
[2017-03-16 08:57] LABS: CREATININE 0.66 mg/dL (0.55-1.02)
[2017-03-16] MEDS: VANCOMYCIN 1 GM PREMIX (ADDVANTAGE) 250 ML IV SCH ×2 (09:06→20:57)
--- NOTE | 2017-03-16 09:41 | PCM.PROG ---
Progress Note - Progress Note for Day of Date: 03/16/17 - Subjective Subjective: IS ALERT AND ORIENTED ON MORNING ROUNDS. PHYSICAL THERAPY IS IN ROOM AND HAS PATIENT WALKING TO HALLWAY. THEY REPORT THAT PATIENT IS WEEK AND NEEDS ASSISTANCE TO AMBULATE. PATIENT DENIES PAIN AT THIS TIME. SHE IS NOTED WITH NO COMPLAINTS. ON EXAMINATION, LUNGS ARE CLEAR TO AUSCULTATION. BOWEL SOUNDS ARE NORMAL IN ALL QUADRANTS. VITALS THIS AM ARE 97.8-68-17-98%-104/ 90. CBC WNL EXCEPT HGB 11.6, HCT 32.9. CMP WNL. WE WILL CONTINUE WITH CURRENT PLAN OF CARE AND ARRANGE FOR HOME HEALTH AND PHYSICAL THERAPY FOR PATIENT AT HOME. WE WILL RECKECK LABS AND FOLLOW UP WITH PATIENT IN AM. - Past Medical Family Social History Past Med/Fam/Surg Hx: No changes since H&P Allergies: Allergies amoxicillin Allergy (Verified 03/11/17 11:37) Penicillins Allergy (Verified 03/11/17 11:37) - Review of Systems ROS: No change since H&P - Vital Signs and I&O's Vital Signs: Temperature 97.8 F Pulse Rate [Apical] 68 Respiratory Rate 17 Blood Pressure [Right Calf] 164/73 Blood Pressure [Right Arm] 104/90 Blood Pressure 155/77 O2 Sat by Pulse Oximetry 98 Intake and Output: Intake & Output 03/13/17 03/14/17 03/15/17 03/16/17 11:59 11:59 11:59 11:59 Intake Total 2102 2046 3055 2550 Output Total 2900 601 1200 2553 Balance -798 1445 1855 -3 - Physical Exam Oriented: Normal Eyes: Normal Ear: Normal Nose: Normal Throat: Normal Respiratory: Normal Cardiovascular: Normal : Normal Auscultation: Bowel Sounds: Normal Palpation: Normal Tenderness: Suprapubic. negative: Normal, Diffuse, RUQ, RLQ, LUQ, LLQ, Epigastric, Periumbilical, Mild, Moderate, Severe, Rebound, Guarding, Rigidity, Other Skin: Normal. negative: Decreased Turgur, Rash, Papular, Macular, Maculopapular , Vesicular, Pustular, Petechial, Red, Tender, Hot, Diaphoresis, Wound, Bruising , Ecchymosis, Other Musculoskeletal: Normal. negative: Right, Left, Shoulder, Clavicle, Arm, Elbow , Forearm, Wrist, Hand, Hip, Thigh, Knee, Leg, Ankle, Foot, Back:Thoracic, Back: Lumbar, Back:Midline, Back:Paraspinous, Pelvis, Swelling, Tender, Deformity, Pulse Deficit, Motor Deficit, Sensory Deficit, Instability, Crepitance Psychiatric: Normal. negative: Anxiety, Depression, Agitation, Other Mood Description: Calm. negative: Angry, Apathetic, Depressed, Fearful, Flat, Happy, Hostile, Sad, Suspicious, Withdrawn, Anxious, Appropriate, Labile Affect: Anxious. negative: Angry, Depressed, Flat, Hysterical, Quiet, Violent, Normal Speech Pattern: Clear, Appropriate - Laboratory and Diagnostics Result Diagrams: 03/16/17 05:39 03/16/17 08:05 Labs: 03/13/17 16:46 Blood Blood Culture - Preliminary 03/13/17 15:40 Blood Blood Culture - Preliminary 03/12/17 11:04 Urine,Clean Catch Urine Culture - Final Enterococcus Faecalis Laboratory WBC 6.8 X10^3/uL (3.6-10.0) 03/16/17 05:39 RBC 3.56 X10^6/uL (3.5-5.4) 03/16/17 05:39 Hgb 11.6 g/dL (12.0-16.0) L 03/16/17 05:39 Hct 32.9 % (36.0-47.0) L 03/16/17 05:39 MCV 92.5 fL (80.0-100.0) 03/16/17 05:39 MCH 32.7 pg (27.0-34.0) 03/16/17 05:39 MCHC 35.3 g/dL (33.0-35.0) H 03/16/17 05:39 RDW 14.1 % (11.6-16.5) 03/16/17 05:39 Plt Count 300 X10^3/uL (150.0-450.0) 03/16/17 05:39 MPV 7.2 fL (7.4-11.0) L 03/16/17 05:39 Neut % 55.0 % (42.0-75.0) 03/16/17 05:39 Lymph % 32.1 % (21.0-51.0) 03/16/17 05:39 [place] % 9.6 % (0.0-13.0) 03/16/17 05:39 Eos % 2.3 % (0.9-2.9) 03/16/17 05:39 Baso % 1.0 % (0.2-1.0) 03/16/17 05:39 Neut # 3.8 x10^3/uL (2.2-4.8) 03/16/17 05:39 Lymph # 2.2 X10^3/uL (1.3-2.9) 03/16/17 05:39 [place] # 0.7 x10^3/uL (0.3-0.8) 03/16/17 05:39 Eos # 0.2 x10^3/uL (0.0-0.2) 03/16/17 05:39 Baso # 0.1 X10^3/uL (0.0-0.1) 03/16/17 05:39 Absolute Nucleated RBC 0.0 /100WBC 03/16/17 05:39 Sodium 136 mmol/L (136-145) 03/16/17 05:39 Corrected Sodium TNP 03/16/17 05:39 Potassium 3.8 mmol/L (3.5-5.1) 03/16/17 05:39 Chloride 100 mmol/L (98-107) 03/16/17 05:39 Carbon Dioxide 30.5 mmol/L (21-32) 03/16/17 05:39 BUN 11 mg/dL (7-18) 03/16/17 05:39 Creatinine 0.66 mg/dL (0.55-1.02) 03/16/17 08:05 Est GFR (MDRD) Af Amer > 60 (>60) 03/16/17 05:39 Est GFR (MDRD) Non-Af > 60 (>60) 03/16/17 05:39 Glucose 90 mg/dL (65-99) 03/16/17 05:39 Calcium 9.5 mg/dL (8.5-10.1) 03/16/17 05:39 Corrected Calcium TNP 03/16/17 05:39 Magnesium 2.0 mg/dL (1.7-2.9) 03/11/17 12:00 Total Bilirubin 0.40 mg/dL (0.2-1.0) 03/16/17 05:39 AST 16 Units/L (15-37) 03/16/17 05:39 ALT 32 Units/L (12-78) 03/16/17 05:39 Alkaline Phosphatase 77 Units/L (46-116) 03/16/17 05:39 Total Protein 7.0 g/dL (6.4-8.2) 03/16/17 05:39 Albumin 3.5 g/dL (3.4-5.0) 03/16/17 05:39 Globulin 3.5 g/dL (2.5-4.5) 03/16/17 05:39 Albumin/Globulin Ratio 1.0 Ratio (1.1-2.1) L 03/16/17 05:39 Specimen Type Clean catch urine 03/12/17 11:04 Urine Color Yellow (YELLOW) 03/12/17 11:04 Urine Appearance Slightly hazy (CLEAR) 03/12/17 11:04 Urine pH 6.5 (5.0 - 8.0) 03/12/17 11:04 Ur Specific [place] 1.010 (1.000-1.030) 03/12/17 11:04 Urine Protein Negative (NEGATIVE) 03/12/17 11:04 Urine Glucose (UA) Negative (NEGATIVE) 03/12/17 11:04 Urine Ketones 1+ (NEGATIVE) 03/12/17 11:04 Urine Occult Blood Negative (NEGATIVE) 03/12/17 11:04 Urine Nitrite Negative (NEGATIVE) 03/12/17 11:04 Urine Bilirubin Negative (NEGATIVE) 03/12/17 11:04 Urine Urobilinogen Normal (NORMAL) 03/12/17 11:04 Ur Leukocyte Esterase 2+ (NEGATIVE) 03/12/17 11:04 Urine RBC Rare /HPF (NEGATIVE) 03/12/17 11:04 Urine WBC 10 - 20 with clumps /HPF (NEGATIVE) 03/12/17 11:04 Ur Squamous Epith Cells Numerous /HPF (NEGATIVE) 03/12/17 11:04 Ur Renal Epithelial Cell Rare /HPF (NEGATIVE) 03/12/17 11:04 Amorphous Sediment 1+ /HPF (NEGATIVE) 03/12/17 11:04 Urine Bacteria 2+ /HPF (NEGATIVE) 03/12/17 11:04 Ur Culture Indicated? Yes/culture set up 03/12/17 11:04 Vancomycin Trough 12.0 ug/mL (15-20) L 03/16/17 08:05 - Plan (1) Enterococcus UTI Status: Acute Plan: VANCOMYCIN 1 GM IV Q12H, CONTINUE TO MONITOR (2) Weakness generalized Status: Acute Plan: CONTINUE NORMAL SALINE, START MEGACE 40MG PO BID, CONTINUE TO MONITOR (3) GERD (gastroesophageal reflux disease) Status: Chronic Qualifiers: Esophagitis presence: esophagitis presence not specified Qualified Code(s) : K21.9 - Gastro-esophageal reflux disease without esophagitis Plan: CONTINUE PEPCID 20MG PO BID, CONTINUE PROTONIX 40MG IV DAILY, START GI COCKTAIL 15ML PO QID, CONTINUE TO MONITOR (4) HTN (hypertension) Status: Chronic Qualifiers: Hypertension type: essential hypertension Qualified Code(s): I10 - Essential (primary) hypertension Plan: CONTINUE TOPROL XL 50MG PO DAILY, CONTINUE TO MONITOR, CONTINUE COZAAR 100MG PO DAILY, CONTINUE HCTZ 25MG PO BID (5) Anxiety Status: Chronic Plan: CONTINUE XANAX 0.5MG TID PRN, CONTINUE TO MONITOR (6) Hyperlipidemia Status: Chronic Qualifiers: Hyperlipidemia type: mixed hyperlipidemia Qualified Code(s): E78.2 - Mixed hyperlipidemia Plan: CONTINUE LIPITOR 20MG PO HS, CONTINUE TO MONITOR (7) Abdominal pain Status: Acute Qualifiers: Abdominal location: epigastric Qualified Code(s): R10.13 - Epigastric pain Plan: CONTINUE GI COCKTAIL, CONTINUE TO MONITOR
[2017-03-16] MEDS: LIPITOR TAB 20 MG PO SCH (20:58)
[2017-03-16] MEDS: RESTORIL CAP 15 MG PO PRN (20:59)
[2017-03-17] MEDS: NS 1000 ML 1,000 ML IV SCH (05:17)
[2017-03-17 05:28] LABS: BASOPHILS # (AUTO) 0.1 X10^3/uL (0.0-0.1); BASOPHILS % (AUTO) 0.9 % (0.2-1.0); EOSINOPHILS # (AUTO) 0.2 x10^3/uL (0.0-0.2); EOSINOPHILS % (AUTO) 2.5 % (0.9-2.9); HEMATOCRIT 32.1 % (36.0-47.0); HEMOGLOBIN 11.4 g/dL (12.0-16.0); LYMPHOCYTES # (AUTO) 2.2 X10^3/uL (1.3-2.9); LYMPHOCYTES % (AUTO) 32.3 % (21.0-51.0); MEAN CORPUSCULAR HEMOGLOBIN 33.4 pg (27.0-34.0); MEAN CORPUSCULAR HGB CONC 35.7 g/dL (33.0-35.0); MEAN CORPUSCULAR VOLUME 93.5 fL (80.0-100.0); MEAN PLATELET VOLUME 7.2 fL (7.4-11.0); MONOCYTES # (AUTO) 0.7 x10^3/uL (0.3-0.8); MONOCYTES % (AUTO) 10.1 % (0.0-13.0); NEUTROPHILS # (AUTO) 3.6 x10^3/uL (2.2-4.8); NEUTROPHILS % (AUTO) 54.2 % (42.0-75.0); PLATELET COUNT 301 X10^3/uL (150.0-450.0); RED BLOOD COUNT 3.43 X10^6/uL (3.5-5.4); RED CELL DISTRIBUTION WIDTH 14.3 % (11.6-16.5); WHITE BLOOD COUNT 6.7 X10^3/uL (3.6-10.0)
[2017-03-17 05:38] LABS: ALANINE AMINOTRANSFERASE 30 Units/L (12-78); ALBUMIN 3.5 g/dL (3.4-5.0); ALKALINE PHOSPHATASE 72 Units/L (46-116); ASPARTATE AMINO TRANSFERASE 17 Units/L (15-37); BLOOD UREA NITROGEN 8 mg/dL (7-18); CALCIUM 9.7 mg/dL (8.5-10.1); CARBON DIOXIDE 29.6 mmol/L (21-32); CHLORIDE 100 mmol/L (98-107); CREATININE 0.64 mg/dL (0.55-1.02); GLUCOSE 98 mg/dL (65-99); SODIUM 135 mmol/L (136-145); TOTAL PROTEIN 6.9 g/dL (6.4-8.2); eGFR BLACK RACES > 60 (>60); eGFR NON BLACK RACES > 60 (>60)
--- NOTE | 2017-03-17 06:07 | RAD ---
HISTORY: Shortness of breath Study: Chest one view Comparison: March 16, 2017 Findings: The trachea is midline. The cardiac silhouette is upper limits normal in size.. The lungs are lea r without focal infiltrate or effusion. The bony thorax is unremarkable. IMPRESSION: 1. No acute cardiopulmonary disease. Reported By:
[2017-03-17] MEDS: MEGACE PO SCH (08:07)
[2017-03-17] MEDS: VANCOMYCIN 1 GM PREMIX (ADDVANTAGE) 250 ML IV SCH (08:07)
[2017-03-17] MEDS: COZAAR PO SCH (08:07)
[2017-03-17] MEDS: PROTONIX INJ 40 MG VIAL IVP SCH (08:07)
[2017-03-17] MEDS: PEPCID TAB 20 MG PO SCH (08:07)
[2017-03-17] MEDS: HYDROCHLOROTHIAZIDE 25 MG TAB PO SCH (08:07)
[2017-03-17] MEDS: TOPROL XL PO SCH (08:07)
[2017-03-17 11:08] VITALS: BP 138/60
== END 2017-03-17 12:00 | disposition home or self-care (01) | DRG 690 ==
LOC: ICU 09:36 → OBSVTOIN 03-12 11:00
PROVIDERS: ADMIT Internal Medicine; ATTEND Internal Medicine
DX: N39.0 Urinary tract infection, site not specified (principal); B95.2 Enterococcus as the cause of diseases classified elsewhere; R42 Dizziness and giddiness; R26.89 Other abnormalities of gait and mobility; I10 Essential (primary) hypertension; R53.1 Weakness; R41.82 Altered mental status, unspecified; I25.10 Atherosclerotic heart disease of native coronary artery without angina pectoris; R06.02 Shortness of breath; T43.225A Adverse effect of selective serotonin reuptake inhibitors, initial encounter; Y92.89 Other specified places as the place of occurrence of the external cause; K21.9 Gastro-esophageal reflux disease without esophagitis; F41.8 Other specified anxiety disorders; E78.2 Mixed hyperlipidemia; Z79.899 Other long term (current) drug therapy
CPT/HCPCS: 36415; 70450; 70551; 71010; 71020; 80053; 80202; 81001; 82565; 83735; 84132; 85025; 87040; 87086; 87088; 87186; 97535; 99231; A4222; C9113; S0179; G0378; J0696; J1630; J3370

== ENCOUNTER 2017-07-12 11:28 | Inpatient (IN) | payer MEDICARE, OTHER ==
--- NOTE | 2017-07-12 11:48 | DR.GENAD ---
HPI - PCP Primary Care Physician: - Complaint/Symptoms Chief Complaint Doctors Comments: Patient presents with spouse with a complaint of frequent falls and weakness. She denies fever, vomiting or diarrhea PMH - PMH Past Medical History: Anxiety, CVA, Dyslipidemia, GERD, Hypertension Past Surgical History: Yes Surgical History: Hysterectomy, Other - Family History Family Medical History: Cancer, Hypertension - Social History Do you use any recreational Drugs:: No ROS - Review of Systems Eyes: No Symptoms Reported ENTM: No Symptoms Reported Respiratoy: No Symptoms Reported Cardiovascular: No Symptoms Reported Gastrointestinal/Abdominal: No Symptoms Reported Genitourinary: No Symptoms Reported Neurological: No Symptoms Reported Musculoskeletal: No Symptoms Reported Integumentary: No Symptoms Reported Hematologic/Lymphatic: No Symptoms Reported Endocrine: No Symptoms Reported Psychiatric: No Symptoms Reported All Other Systems: Reviewed and Negative PE - Vital Signs Vitals: Pulse Rate 76 Respiratory Rate 22 Blood Pressure [Right Calf] 164/73 Blood Pressure [Right Arm] 138/60 Blood Pressure 130/66 O2 Sat by Pulse Oximetry 99 - General Limitations: No Limitations General Appearance: Alert, In No Apparent Distress - Head Head Exam: Normal Inspection, Atraumatic - Eyes Eye exam: Normal Appearance, PERRL, EOMI - ENT ENT Exam: Normal Exam External Ear Exam: Normal External Inspection TM/Canal Exam: Bilateral Normal Nose Exam: Normal Nose Exam Mouth Exam: Normal Inspection Throat Exam: Normal Inspection - Neck Neck Exam: Normal Inspection, Full ROM - Chest Chest Inspection: Normal Inspection - Respiratory Respiratory Exam: Normal Lung Sounds Bilat Respiratory Exam: Bilateral Clear to Auscultation - Cardiovascular Cardiovascular Exam: Regular Rate, Normal Rhythm - Abdominal Exam Abdominal Exam: Normal Inspection, Normal Bowel Sounds Abdominal Tenderness: negative: RUQ, RLQ, LUQ, LLQ, Epigastrium, Suprapubic, Diffuse, Mild, Moderate, Severe, Other - Extremities Extremities Exam: Normal Inspection, Full ROM - Back Back Exam: Normal Inspection, Full ROM - Neurologic Neurological Exam: Alert, Oriented X3, CN II-XII Intact - Psychiatric Psychiatric Exam: Normal Affect, Normal Mood - Skin Skin Exam: Warm, Dry, Intact Course - Consultation Called: 14:00 (Dr Joseph agreed to admit for further therapy) ROR - Labs Reviewed Result Diagrams: 07/12/17 12:25 07/12/17 12:25 Laboratory: WBC 8.2 X10^3/uL (3.6-10.0) 07/12/17 12:25 RBC 3.93 X10^6/uL (3.5-5.4) 07/12/17 12:25 Hgb 12.7 g/dL (12.0-16.0) 07/12/17 12:25 Hct 36.4 % (36.0-47.0) 07/12/17 12:25 MCV 92.8 fL (80.0-100.0) 07/12/17 12:25 MCH 32.3 pg (27.0-34.0) 07/12/17 12:25 MCHC 34.8 g/dL (33.0-35.0) 07/12/17 12:25 RDW 14.0 % (11.6-16.5) 07/12/17 12:25 Plt Count 397 X10^3/uL (150.0-450.0) 07/12/17 12:25 MPV 6.3 fL (7.4-11.0) L 07/12/17 12:25 Neut % 72.2 % (42.0-75.0) 07/12/17 12:25 Lymph % 19.2 % (21.0-51.0) L 07/12/17 12:25 Glades % 6.9 % (0.0-13.0) 07/12/17 12:25 Eos % 0.9 % (0.9-2.9) 07/12/17 12:25 Baso % 0.8 % (0.2-1.0) 07/12/17 12:25 Neut # 6.0 x10^3/uL (2.2-4.8) H 07/12/17 12:25 Lymph # 1.6 X10^3/uL (1.3-2.9) 07/12/17 12:25 Glades # 0.6 x10^3/uL (0.3-0.8) 07/12/17 12:25 Eos # 0.1 x10^3/uL (0.0-0.2) 07/12/17 12:25 Baso # 0.1 X10^3/uL (0.0-0.1) 07/12/17 12:25 Absolute Nucleated RBC 0.0 /100WBC 07/12/17 12:25 Sodium 129 mmol/L (136-145) L 07/12/17 12:25 Corrected Sodium 130 mmol/L (136-145) L 07/12/17 12:25 Potassium 3.9 mmol/L (3.5-5.1) 07/12/17 12:25 Chloride 95 mmol/L (98-107) L 07/12/17 12:25 Carbon Dioxide 25.2 mmol/L (21-32) 07/12/17 12:25 BUN 16 mg/dL (7-18) 07/12/17 12:25 Creatinine 1.07 mg/dL (0.55-1.02) H 07/12/17 12:25 Est GFR (MDRD) Af Amer > 60 (>60) 07/12/17 12:25 Est GFR (MDRD) Non-Af 53 (>60) L 07/12/17 12:25 Glucose 151 mg/dL (65-99) H 07/12/17 12:25 Calcium 10.0 mg/dL (8.5-10.1) 07/12/17 12:25 Corrected Calcium TNP 07/12/17 12:25 Total Bilirubin 0.30 mg/dL (0.2-1.0) 07/12/17 12:25 AST 20 Units/L (15-37) 07/12/17 12:25 ALT 18 Units/L (12-78) 07/12/17 12:25 Alkaline Phosphatase 95 Units/L (46-116) 07/12/17 12:25 Creatine Kinase 333 Units/L (26-192) H 07/12/17 12:25 CK-MB (CK-2) 17.7 ng/mL (0-4.0) H* 07/12/17 12:25 CK/CKMB % Calc 5.3 % (<4) 07/12/17 12:25 Troponin I < 0.02 ng/mL (0-1.5) 07/12/17 12:25 C-Reactive Protein < 0.50 mg/L (0-3.0) 07/12/17 12:25 Total Protein 7.7 g/dL (6.4-8.2) 07/12/17 12:25 Albumin 4.2 g/dL (3.4-5.0) 07/12/17 12:25 Globulin 3.5 g/dL (2.5-4.5) 07/12/17 12:25 Albumin/Globulin Ratio 1.2 Ratio (1.1-2.1) 07/12/17 12:25 - XRAY XRAY Interpreted by: Radiologist (CT Brain:No acute intracranial disease. Unchanged moderate to severe periventricular white matter small vessel disease with encephalomalacia at the anterior base of the left temporal lobe and an old lft caudate nucleus intact.) - Diagnosis Discharge Problem: Hyponatremia - Discharge Plan Condition: Stable - Follow ups/Referrals Follow ups/Referrals: Martir Carter [Primary Care Provider] - 3 days - Instructions
[2017-07-12 12:05] VITALS: BMI 25.7
[2017-07-12] MEDS ORDERED: NS 1000 ML 1,000 ML IV ONE (12:13)
[2017-07-12] MEDS ORDERED: NS 1000 ML 1,000 ML ONE (12:27)
[2017-07-12 12:34] LABS: BASOPHILS # (AUTO) 0.1 X10^3/uL (0.0-0.1); BASOPHILS % (AUTO) 0.8 % (0.2-1.0); EOSINOPHILS # (AUTO) 0.1 x10^3/uL (0.0-0.2); EOSINOPHILS % (AUTO) 0.9 % (0.9-2.9); HEMATOCRIT 36.4 % (36.0-47.0); HEMOGLOBIN 12.7 g/dL (12.0-16.0); LYMPHOCYTES # (AUTO) 1.6 X10^3/uL (1.3-2.9); LYMPHOCYTES % (AUTO) 19.2 % (21.0-51.0); MEAN CORPUSCULAR HEMOGLOBIN 32.3 pg (27.0-34.0); MEAN CORPUSCULAR HGB CONC 34.8 g/dL (33.0-35.0); MEAN CORPUSCULAR VOLUME 92.8 fL (80.0-100.0); MEAN PLATELET VOLUME 6.3 fL (7.4-11.0); MONOCYTES # (AUTO) 0.6 x10^3/uL (0.3-0.8); MONOCYTES % (AUTO) 6.9 % (0.0-13.0); NEUTROPHILS % (AUTO) 72.2 % (42.0-75.0); PLATELET COUNT 397 X10^3/uL (150.0-450.0); RED BLOOD COUNT 3.93 X10^6/uL (3.5-5.4); WHITE BLOOD COUNT 8.2 X10^3/uL (3.6-10.0)
[2017-07-12 12:43] LABS: ALANINE AMINOTRANSFERASE 18 Units/L (12-78); ALBUMIN 4.2 g/dL (3.4-5.0); ALKALINE PHOSPHATASE 95 Units/L (46-116); ASPARTATE AMINO TRANSFERASE 20 Units/L (15-37); BLOOD UREA NITROGEN 16 mg/dL (7-18); C-REACTIVE PROTEIN < 0.50 mg/L (0-3.0); CARBON DIOXIDE 25.2 mmol/L (21-32); CHLORIDE 95 mmol/L (98-107); COR NA(FOR HYPERGLY) 130 mmol/L (136-145); CREATININE 1.07 mg/dL (0.55-1.02); SODIUM 129 mmol/L (136-145); TOTAL PROTEIN 7.7 g/dL (6.4-8.2); eGFR BLACK RACES > 60 (>60); eGFR NON BLACK RACES 53 (>60)
--- NOTE | 2017-07-12 13:20 | CT ---
History: Weakness and frequent falls Study: CT head without contrast. Sagittal and coronal reformations were provided. Comparison: March 11, 2017 Findings: There is no interval change. There is encephalomalacia in the base of the anterior left tem poral lobe and there is marked artifact from aneurysm clips bilaterally above the sella. There is mod erate to severe periventricular white matter low attenuation diffusely. The ventricles and sulci are prominent. There is a lacunar infarct that is old in the left caudate nucleus. There is no hemorrhage or mass or subdural collection of blood. Impression: 1. No acute intracranial disease 2. Unchanged moderate to severe periventricular white-matter small-vessel disease with encephalomalac ia at the anterior base of the left temporal lobe and an old left caudate nucleus infarct. Reported By:
[2017-07-12 13:31] LABS: CKMB % 5.3 % (<4); CREATINE KINASE 333 Units/L (26-192); TROPONIN I < 0.02 ng/mL (0-1.5)
[2017-07-12 13:32] LABS: CREATINE KINASE MB 17.7 ng/mL (0-4.0)
[2017-07-12 15:21] LABS: BILIRUBIN,URINE NEGATIVE (NEGATIVE); BLOOD/HEMOGLOBIN,URINE 1+ (NEGATIVE); GLUCOSE, URINE NEGATIVE (NEGATIVE); KETONES,URINE NEGATIVE (NEGATIVE); LEUKOCYTE ESTERASE ,URINE 1+ (NEGATIVE); NITRITES,URINE NEGATIVE (NEGATIVE); PROTEIN,URINE NEGATIVE (NEGATIVE); UROBILINOGEN,URINE NORMAL (NORMAL)
[2017-07-12 15:33] LABS: APPEARANCE,URINE CLEAR (CLEAR); COLOR,URINE YELLOW (YELLOW); RBC,URINE 0-1 /HPF (NEGATIVE)
[2017-07-12 15:34] LABS: BACTERIA,URINE NEGATIVE /HPF (NEGATIVE); SQUAMOUS EPITHELIAL CELL,UR FEW /HPF (NEGATIVE)
[2017-07-12] MEDS: NS 1000 ML 1,000 ML IV SCH (18:12)
[2017-07-12] MEDS: CIPRO IV 400 MG PREMIX* 400 MG/200 ML IV.SOLN. IV SCH ×2 (18:13→23:23)
[2017-07-12] MEDS ORDERED: RESTORIL CAP 15 MG PO PRN (20:02)
[2017-07-12] MEDS: HYDROCHLOROTHIAZIDE 25 MG TAB PO SCH (20:56)
[2017-07-12] MEDS: LIPITOR TAB 20 MG PO SCH (20:57)
[2017-07-12] MEDS: MEGACE PO SCH (20:57)
[2017-07-12] MEDS: XANAX PO SCH (20:58)
[2017-07-12] MEDS: PEPCID TAB 20 MG PO SCH (20:58)
[2017-07-12] MEDS: NICOTINE PATCH TD SCH (21:14)
[2017-07-12] MEDS: VALIUM INJ IVP PRN (23:23)
[2017-07-13 04:55] LABS: BASOPHILS # (AUTO) 0.1 X10^3/uL (0.0-0.1); EOSINOPHILS # (AUTO) 0.1 x10^3/uL (0.0-0.2); EOSINOPHILS % (AUTO) 2.2 % (0.9-2.9); HEMATOCRIT 33.2 % (36.0-47.0); HEMOGLOBIN 11.7 g/dL (12.0-16.0); LYMPHOCYTES # (AUTO) 1.9 X10^3/uL (1.3-2.9); LYMPHOCYTES % (AUTO) 29.5 % (21.0-51.0); MEAN CORPUSCULAR HEMOGLOBIN 32.8 pg (27.0-34.0); MEAN CORPUSCULAR HGB CONC 35.2 g/dL (33.0-35.0); MONOCYTES # (AUTO) 0.9 x10^3/uL (0.3-0.8); MONOCYTES % (AUTO) 13.2 % (0.0-13.0); NEUTROPHILS # (AUTO) 3.5 x10^3/uL (2.2-4.8); NEUTROPHILS % (AUTO) 54.1 % (42.0-75.0); PLATELET COUNT 368 X10^3/uL (150.0-450.0); RED BLOOD COUNT 3.57 X10^6/uL (3.5-5.4); RED CELL DISTRIBUTION WIDTH 14.1 % (11.6-16.5); WHITE BLOOD COUNT 6.5 X10^3/uL (3.6-10.0)
[2017-07-13 05:33] LABS: ALANINE AMINOTRANSFERASE 18 Units/L (12-78); ALBUMIN 3.8 g/dL (3.4-5.0); ALKALINE PHOSPHATASE 84 Units/L (46-116); ASPARTATE AMINO TRANSFERASE 19 Units/L (15-37); BLOOD UREA NITROGEN 10 mg/dL (7-18); CALCIUM 9.7 mg/dL (8.5-10.1); CARBON DIOXIDE 21.4 mmol/L (21-32); CHLORIDE 97 mmol/L (98-107); CREATININE 0.71 mg/dL (0.55-1.02); SODIUM 130 mmol/L (136-145); TOTAL PROTEIN 6.9 g/dL (6.4-8.2); eGFR BLACK RACES > 60 (>60); eGFR NON BLACK RACES > 60 (>60)
[2017-07-13] MEDS: HYDROCHLOROTHIAZIDE 25 MG TAB PO SCH ×2 (08:44→21:30)
[2017-07-13] MEDS: PROTONIX TAB 40 MG PO SCH (08:45)
[2017-07-13] MEDS: COZAAR PO SCH (08:45)
[2017-07-13] MEDS: ASPIRIN PO SCH (08:46)
[2017-07-13] MEDS: TOPROL XL PO SCH (08:46)
[2017-07-13] MEDS: CIPRO IV 400 MG PREMIX* 400 MG/200 ML IV.SOLN. IV SCH ×2 (08:46→21:26)
[2017-07-13] MEDS: MEGACE PO SCH ×2 (08:46→21:31)
[2017-07-13] MEDS: XANAX PO SCH ×2 (08:46→21:31)
[2017-07-13] MEDS: NICOTINE PATCH TD SCH (08:46)
[2017-07-13] MEDS: PEPCID TAB 20 MG PO SCH ×2 (08:46→21:31)
[2017-07-13] MEDS ORDERED: LYRICA CAP 50 MG PO SCH (09:00)
[2017-07-13] MEDS: NS 1000 ML 1,000 ML IV SCH ×2 (12:12)
[2017-07-13] MEDS: VALIUM INJ IVP PRN (14:16)
[2017-07-13] MEDS ORDERED: BENADRYL CAP 50 MG PO PRN (17:17)
[2017-07-13] MEDS ORDERED: BENADRYL CAP/TAB 25 MG PO PRN (17:33)
[2017-07-13] MEDS: LIPITOR TAB 20 MG PO SCH (21:30)
[2017-07-14] MEDS: NS 1000 ML 1,000 ML IV SCH (03:39)
[2017-07-14 04:45] LABS: BASOPHILS # (AUTO) 0.1 X10^3/uL (0.0-0.1); EOSINOPHILS # (AUTO) 0.1 x10^3/uL (0.0-0.2); EOSINOPHILS % (AUTO) 1.4 % (0.9-2.9); HEMATOCRIT 35.2 % (36.0-47.0); HEMOGLOBIN 12.4 g/dL (12.0-16.0); LYMPHOCYTES # (AUTO) 2.2 X10^3/uL (1.3-2.9); LYMPHOCYTES % (AUTO) 26.1 % (21.0-51.0); MEAN CORPUSCULAR HEMOGLOBIN 32.7 pg (27.0-34.0); MEAN CORPUSCULAR HGB CONC 35.2 g/dL (33.0-35.0); MEAN CORPUSCULAR VOLUME 92.9 fL (80.0-100.0); MEAN PLATELET VOLUME 6.9 fL (7.4-11.0); MONOCYTES % (AUTO) 11.7 % (0.0-13.0); NEUTROPHILS # (AUTO) 4.9 x10^3/uL (2.2-4.8); NEUTROPHILS % (AUTO) 59.8 % (42.0-75.0); PLATELET COUNT 390 X10^3/uL (150.0-450.0); RED BLOOD COUNT 3.79 X10^6/uL (3.5-5.4); WHITE BLOOD COUNT 8.2 X10^3/uL (3.6-10.0)
[2017-07-14 05:07] LABS: ALANINE AMINOTRANSFERASE 19 Units/L (12-78); ALKALINE PHOSPHATASE 90 Units/L (46-116); ASPARTATE AMINO TRANSFERASE 19 Units/L (15-37); BLOOD UREA NITROGEN 9 mg/dL (7-18); CALCIUM 9.9 mg/dL (8.5-10.1); CARBON DIOXIDE 21.4 mmol/L (21-32); CHLORIDE 96 mmol/L (98-107); CREATININE 0.68 mg/dL (0.55-1.02); SODIUM 130 mmol/L (136-145); TOTAL PROTEIN 7.5 g/dL (6.4-8.2); eGFR BLACK RACES > 60 (>60); eGFR NON BLACK RACES > 60 (>60)
[2017-07-14] MEDS ORDERED: K-LYTE EFFERVESCENT PO PRN (06:08)
[2017-07-14] MEDS ORDERED: POTASSIUM CHL 40 MEQ/NS 0.45% 500 ML IV PRN (06:08)
[2017-07-14] MEDS ORDERED: MAGNESIUM SULFATE 1 GM/100 mL PREMIX 1 GM/100 ML BAG IV PRN (06:08)
[2017-07-14] MEDS ORDERED: K-RIDER 10 MEQ/NS 100 ML 10 MEQ/100 ML BAG IV PRN (06:08)
[2017-07-14] MEDS ORDERED: POTASSIUM CHL 60 MEQ/NS 0.45% 500 ML IV PRN (06:08)
[2017-07-14] MEDS ORDERED: POTASSIUM CHLORIDE LIQ 20 MEQ UDC PO PRN (06:08)
[2017-07-14] MEDS: PROTONIX TAB 40 MG PO SCH (08:38)
[2017-07-14] MEDS: TOPROL XL PO SCH (08:38)
[2017-07-14] MEDS: XANAX PO SCH (08:38)
[2017-07-14] MEDS: CIPRO IV 400 MG PREMIX* 400 MG/200 ML IV.SOLN. IV SCH ×2 (08:38→20:25)
[2017-07-14] MEDS: COZAAR PO SCH (08:38)
[2017-07-14] MEDS: ASPIRIN PO SCH (08:39)
[2017-07-14] MEDS: PEPCID TAB 20 MG PO SCH (08:39)
[2017-07-14] MEDS: NICOTINE PATCH TD SCH (08:39)
[2017-07-14] MEDS: MEGACE PO SCH (08:39)
[2017-07-14] MEDS: HYDROCHLOROTHIAZIDE 25 MG TAB PO SCH (08:39)
[2017-07-14] MEDS: MAG-OX TAB PO PRN ×2 (08:52→14:37)
[2017-07-14] MEDS: NS + KCL 20 MEQ/L 1,000 ML IV SCH ×2 (14:38→17:57)
[2017-07-14] MEDS: XANAX PO PRN (20:25)
[2017-07-15] MEDS: NS + KCL 20 MEQ/L 1,000 ML IV SCH ×3 (01:00→17:58)
[2017-07-15 04:39] LABS: BASOPHILS # (AUTO) 0.1 X10^3/uL (0.0-0.1); BASOPHILS % (AUTO) 1.1 % (0.2-1.0); EOSINOPHILS # (AUTO) 0.2 x10^3/uL (0.0-0.2); EOSINOPHILS % (AUTO) 3.3 % (0.9-2.9); HEMATOCRIT 34.3 % (36.0-47.0); LYMPHOCYTES # (AUTO) 2.1 X10^3/uL (1.3-2.9); LYMPHOCYTES % (AUTO) 32.3 % (21.0-51.0); MEAN CORPUSCULAR HEMOGLOBIN 32.5 pg (27.0-34.0); MEAN CORPUSCULAR HGB CONC 34.9 g/dL (33.0-35.0); MEAN CORPUSCULAR VOLUME 93.2 fL (80.0-100.0); MEAN PLATELET VOLUME 6.7 fL (7.4-11.0); MONOCYTES # (AUTO) 0.8 x10^3/uL (0.3-0.8); MONOCYTES % (AUTO) 12.1 % (0.0-13.0); NEUTROPHILS # (AUTO) 3.3 x10^3/uL (2.2-4.8); NEUTROPHILS % (AUTO) 51.2 % (42.0-75.0); PLATELET COUNT 351 X10^3/uL (150.0-450.0); RED BLOOD COUNT 3.68 X10^6/uL (3.5-5.4); RED CELL DISTRIBUTION WIDTH 13.6 % (11.6-16.5); WHITE BLOOD COUNT 6.4 X10^3/uL (3.6-10.0)
[2017-07-15 04:51] LABS: ALANINE AMINOTRANSFERASE 17 Units/L (12-78); ALBUMIN 3.6 g/dL (3.4-5.0); ALKALINE PHOSPHATASE 82 Units/L (46-116); ASPARTATE AMINO TRANSFERASE 15 Units/L (15-37); BLOOD UREA NITROGEN 13 mg/dL (7-18); CALCIUM 9.4 mg/dL (8.5-10.1); CARBON DIOXIDE 24.4 mmol/L (21-32); CHLORIDE 98 mmol/L (98-107); CREATININE 0.77 mg/dL (0.55-1.02); SODIUM 131 mmol/L (136-145); TOTAL PROTEIN 6.8 g/dL (6.4-8.2); eGFR BLACK RACES > 60 (>60); eGFR NON BLACK RACES > 60 (>60)
[2017-07-15] MEDS: CIPRO IV 400 MG PREMIX* 400 MG/200 ML IV.SOLN. IV SCH ×2 (09:50→20:51)
[2017-07-15] MEDS: NICOTINE PATCH TD SCH (09:50)
[2017-07-15] MEDS: COZAAR PO SCH (09:51)
[2017-07-15] MEDS: ASPIRIN PO SCH (09:51)
[2017-07-15] MEDS: TOPROL XL PO SCH (09:51)
[2017-07-15] MEDS: XANAX PO PRN (20:51)
[2017-07-16] MEDS: NS + KCL 20 MEQ/L 1,000 ML IV SCH ×2 (03:35→05:00)
[2017-07-16 05:22] LABS: ALANINE AMINOTRANSFERASE 16 Units/L (12-78); ALBUMIN 3.6 g/dL (3.4-5.0); ALKALINE PHOSPHATASE 77 Units/L (46-116); ASPARTATE AMINO TRANSFERASE 14 Units/L (15-37); BLOOD UREA NITROGEN 9 mg/dL (7-18); CALCIUM 9.4 mg/dL (8.5-10.1); CARBON DIOXIDE 22.8 mmol/L (21-32); CHLORIDE 102 mmol/L (98-107); SODIUM 135 mmol/L (136-145); TOTAL PROTEIN 6.7 g/dL (6.4-8.2); eGFR BLACK RACES > 60 (>60); eGFR NON BLACK RACES > 60 (>60)
[2017-07-16 06:06] LABS: BASOPHILS # (AUTO) 0.1 X10^3/uL (0.0-0.1); BASOPHILS % (AUTO) 1.1 % (0.2-1.0); EOSINOPHILS # (AUTO) 0.1 x10^3/uL (0.0-0.2); EOSINOPHILS % (AUTO) 1.9 % (0.9-2.9); HEMATOCRIT 33.4 % (36.0-47.0); HEMOGLOBIN 11.5 g/dL (12.0-16.0); LYMPHOCYTES # (AUTO) 1.9 X10^3/uL (1.3-2.9); LYMPHOCYTES % (AUTO) 32.4 % (21.0-51.0); MEAN CORPUSCULAR HEMOGLOBIN 32.2 pg (27.0-34.0); MEAN CORPUSCULAR HGB CONC 34.6 g/dL (33.0-35.0); MEAN CORPUSCULAR VOLUME 93.1 fL (80.0-100.0); MEAN PLATELET VOLUME 6.9 fL (7.4-11.0); MONOCYTES # (AUTO) 0.7 x10^3/uL (0.3-0.8); MONOCYTES % (AUTO) 11.4 % (0.0-13.0); NEUTROPHILS # (AUTO) 3.1 x10^3/uL (2.2-4.8); NEUTROPHILS % (AUTO) 53.2 % (42.0-75.0); PLATELET COUNT 357 X10^3/uL (150.0-450.0); RED BLOOD COUNT 3.58 X10^6/uL (3.5-5.4); RED CELL DISTRIBUTION WIDTH 13.8 % (11.6-16.5); WHITE BLOOD COUNT 5.7 X10^3/uL (3.6-10.0)
[2017-07-16] MEDS: COZAAR PO SCH (08:55)
[2017-07-16] MEDS: ASPIRIN PO SCH (08:55)
[2017-07-16] MEDS: TOPROL XL PO SCH (08:55)
[2017-07-16] MEDS: NICOTINE PATCH TD SCH (10:43)
[2017-07-16] MEDS: CIPRO IV 400 MG PREMIX* 400 MG/200 ML IV.SOLN. IV SCH (10:44)
[2017-07-16 10:57] VITALS: BP 134/74
== END 2017-07-16 10:50 | disposition home health service (06) | DRG 640 ==
LOC: ER 11:55 → OBS 14:12 → MED/SURG 07-13 14:15
PROVIDERS: ADMIT Obstetrics & Gynecology Obstetrics; ATTEND Internal Medicine
DX: E87.6 Hypokalemia (principal); E87.0 Hyperosmolality and hypernatremia; F01.51 Vascular dementia, unspecified severity, with behavioral disturbance; R53.1 Weakness; E78.2 Mixed hyperlipidemia; K21.9 Gastro-esophageal reflux disease without esophagitis; I10 Essential (primary) hypertension; R29.6 Repeated falls; R94.31 Abnormal electrocardiogram [ECG] [EKG]; R26.89 Other abnormalities of gait and mobility; I60.8 Other nontraumatic subarachnoid hemorrhage; Z72.0 Tobacco use; Z85.3 Personal history of malignant neoplasm of breast; Z78.1 Physical restraint status
CPT/HCPCS: 36415; 70450; 80053; 81001; 82550; 82553; 83735; 84484; 85025; 86140; 93005; 93010; 94760; 96365; 96367; 99284; A4216; A4222; S0179; J0744; J3360

== ENCOUNTER → 2017-07-28 | Outpatient (CLI) | payer MEDICARE ==
[2017-07-16 04:29] VITALS: BP 175/82
--- NOTE | 2017-08-04 10:13 | MG ---
HISTORY: SCREENING, left mastectomy Comparison: Multiple priors dating back to August 26, 2010 FINDINGS: CC and MLO projections of the right breast were obtained. Scattered fibroglandular tissue is seen to be present. No suspicious architectural distortion, mass or clustered microcalcifications can be ob served to suggest malignancy. No skin thickening or nipple retraction is appreciated. No pathologi aimee lymphadenopathy can be identified. Benign-appearing calcifications are noted. IMPRESSION: NO RADIOGRAPHIC EVIDENCE OF MALIGNANCY. ACR CATEGORY 2 - benign findings. FOLLOW-UP EXAM 1 YEAR. Diagnostic CAD was utilized and reviewed. * 0 (ZERO) - ASSESSMENT INCOMPLETE; ADDITIONAL IMAGING IS NEEDED. * / (ONE) - NEGATIVE. * 2/II (TWO) - BENIGN FINDINGS. * 3/III (THREE) - PROBABLY BENIGN FINDING; SHORT INTERVAL FOLLOW-UP SUGGESTED. * 4/IV (FOUR) - SUSPICIOUS ABNORMALITY; BIOPSY SHOULD BE CONSIDERED. * 5/V - HIGHLY SUSPICIOUS OF MALIGNANCY; BIOPSY SHOULD BE PERFORMED. A NEGATIVE X-RAY REPORT SHOULD NOT DELAY BIOPSY IF A DOMINANT OR CLINICALLY SUSPICIOUS MASS IS PRESENT; 4 TO 8 PERCENT OF CANCERS ARE NOT IDENTIFIED BY X-RAY. A NEGA TIVE REPORT MAY REINFORCE THE CLINICAL IMPRESSION. ADENOSIS AND DENSE BREASTS MAY OBSCURE AN UNDERLY ING NEOPLASM. Reported By:
== END ==
LOC: RAD 09:12
PROVIDERS: ATTEND Internal Medicine
DX: Z12.31 Encounter for screening mammogram for malignant neoplasm of breast (principal)
CPT/HCPCS: 77067

== ENCOUNTER 2018-01-22 20:21 | Inpatient (IN) ==
--- NOTE | 2018-01-22 20:47 | DR.GENAD ---
HPI - PCP Primary Care Physician: PIPPA - Complaint/Symptoms Chief Complaint Doctors Comments: Family states the patient fell last night while going to the bathroom and hit her head and has been talkingout of her head today. spouse states that he went outside today and came back and she was on the floor again. States she has had a large bleed in 2011. States she is a patient of . States she has been having problems with her balance. She states she is 34 years old and does not know where she is. she denies chest pain or SOB. Chief Complaint:: FELL LAST NIGHT HIT HEAD FAMILY STATES EVER SINCE THEN SHE HAS BEEN CONFUSED. - Nurses notes reviewed Nurses Notes Review: Yes - Source History Provided: Family Member, Other - Mode of Arrival Mode of Arrival: Ambulatory - Timing Onset of Chief Complaint: 01/21/18 Came on: Suddenly - Duration Duration: Constant How lon Duration: Hours - Location Location: problems with balance - Severity Severity: Mild - Modifying Factors Worsens:: nothing Improves:: nothing PMH - PMH Past Medical History: Yes Past Medical History: Anxiety, CVA, Dyslipidemia, GERD, Hypertension Past Surgical History: Yes Surgical History: Hysterectomy, Other - Family History History of Family Medical Conditions: Yes Family Medical History: Cancer, Hypertension - Social History Does patient currently use any type of tobacco product: Yes Have you used tobacco products in the last 12 months: Yes Type of Tobacco Use: Cigarettes Does any household member use tobacco: Yes Alcohol Use: None Do you use any recreational Drugs:: No Lives With: Spouse Lives Where: Home - infectious screening In the last 2 months have you had wt loss of >10#?: NO Have you had fever, night sweats or hemotysis?: No Have you traveled outside the country in the last 6 months?: No ROS - Review of Systems Constitutional: No Symptoms Reported, Weakness, Loss of Appetite. negative: See HPI, Chills, Diaphoresis, Fever, Malaise, Irritable, Fatigue, Other Eyes: No Symptoms Reported ENTM: No Symptoms Reported. negative: See HPI, Ear Pain, Ear Discharge, Pulling on Ears, Hearing Loss, Nose Pain, Nose Discharge, Epistaxis, Nose Congestion, Mouth Pain, Mouth Swelling, Loose Teeth, Drooling, Throat Pain, Throat Swelling, Ear Foreign Body Respiratoy: No Symptoms Reported. negative: See HPI, Productive Cough, Non- Productive Cough, Moist Cough, Dry Cough, Hacking Cough, Barking Cough, Brassy Cough, Orthopnea, Short of Breath, Stridor, Wheezing, Hemoptysis, Other Cardiovascular: No Symptoms Reported, Syncope Gastrointestinal/Abdominal: No Symptoms Reported. negative: See HPI, Abdominal Pain, Constipation, Diarrhea, Nausea, Vomiting, Food Intolerance, Other Genitourinary: No Symptoms Reported. negative: See HPI, Discharge, Dysuria, Frequency, Hematuria, Pain, Bleeding, Other Neurological: No Symptoms Reported, Problems Walking (problems with her balance) Musculoskeletal: No Symptoms Reported Integumentary: No Symptoms Reported Hematologic/Lymphatic: No Symptoms Reported Endocrine: No Symptoms Reported Psychiatric: No Symptoms Reported. negative: See HPI, Anxiety, Depression, Hallucinations, Excessive crying, Suicidal, Other PE - General Limitations: No Limitations General Appearance: Alert, In No Apparent Distress (disorientated) - Head Head Exam: Normal Inspection, Atraumatic, Normocephalic - Eyes Eye exam: Normal Appearance, PERRL, EOMI. negative: Scleral Icterus, Conjunctival Injection, Nystagmus, Miosis, Mydrasis, Periorbital Swelling, Periorbital Tenderness, Other - ENT ENT Exam: Normal Exam, Normal Oropharynx, Normal External Ear Exam, Mucous Membranes Moist, TM's Normal Bilaterally External Ear Exam: Normal External Inspection TM/Canal Exam: Bilateral Normal Nose Exam: Normal Nose Exam Mouth Exam: Normal Inspection Throat Exam: Normal Inspection. negative: Tonsillar Erythema, Tonsillomegaly, Tonsillar Exudate, R Peritonsillar Mass, L Peritonsillar Mass, Muffled Voice, Other - Neck Neck Exam: Normal Inspection, Full ROM, Trachea Midline. negative: Tenderness, Meningismus, Lymphadenopathy, Thyromegaly, Other - Chest Chest Inspection: Normal Inspection, Symmetric Chest Wall Rise - Respiratory Respiratory Exam: Normal Lung Sounds Bilat Respiratory Exam: Bilateral Clear to Auscultation - Cardiovascular Cardiovascular Exam: Regular Rate, Normal Rhythm, Normal Heart Sounds, Systolic Murmur - Abdominal Exam Abdominal Exam: Normal Inspection, Normal Bowel Sounds, Soft. negative: Distention, Tenderness, Guarding, Rebound, Rigidity, Dimnished Bowel Sounds, Hyperactive Bowel Sounds, Hypoactive Bowel Sounds, Organomegaly, Trauma, Incision, Ascites, Mass, Bruit, Pulsatile Mass, Hernia, Other Abdominal Tenderness: negative: RUQ, RLQ, LUQ, LLQ, Epigastrium, Suprapubic, Diffuse, Mild, Moderate, Severe, Other - Extremities Extremities Exam: Normal Inspection, Full ROM, Normal Capillary Refill. negative: Tenderness, Edema, Joint Swelling, Calf Tenderness, Other - Back Back Exam: Normal Inspection, Full ROM. negative: Tenderness, (R) CVA Tenderness, (L) CVA Tenderness, Muscle Spasm, Paraspinal Tenderness, Vertebral Tenderness, Rashes, (R) Sciatic Notch Tenderness, (L) Sciatic Notch Tendern, (R ) Straight Leg Raise, (L) Straight Leg Raise, Other - Neurologic Neurological Exam: Alert (disorientated), CN II-XII Intact, Reflexes Normal. negative: Oriented X3 (disorientated to place), Normal Gait (gait not tested) - Psychiatric Psychiatric Exam: Normal Affect, Normal Mood - Skin Skin Exam: Warm, Dry, Intact, Normal Color - Vital Signs Vitals: Temperature 98.3 F Pulse Rate [Apical] 74 Pulse Rate 70 Respiratory Rate 19 Blood Pressure [Left Arm] 114/56 Blood Pressure [Right Calf] 164/73 Blood Pressure [Right Arm] 133/71 Blood Pressure 132/62 O2 Sat by Pulse Oximetry 98 Course - Consultation Called: 00:05 Call Returned: 00:05 ( to admit) ROR - Labs Reviewed Laboratory Results Reviewed?: Yes (All labs and x-ray results reviewed and discussed with patient) Result Diagrams: 01/22/18 21:05 01/22/18 21:05 - XRAY XRAY Interpreted by: Radiologist (CT head: No gross evidence of acute intracranial process. Chronic left MCA ischemic insult w/encephalomalacia) XRAY Findings: CTA chest: No pulmonary embolus. - EKG Rate: 72 Rhythm: NSR Block: None Hypertrophy: None ST: Nonsp - Labs Reviewed Laboratory: WBC 8.5 X10^3/uL (3.6-10.0) 01/22/18 21:05 RBC 3.87 X10^6/uL (3.5-5.4) 01/22/18 21:05 Hgb 12.9 g/dL (12.0-16.0) 01/22/18 21:05 Hct 36.0 % (36.0-47.0) 01/22/18 21:05 MCV 93.0 fL (80.0-100.0) 01/22/18 21:05 MCH 33.3 pg (27.0-34.0) 01/22/18 21:05 MCHC 35.8 g/dL (33.0-35.0) H 01/22/18 21:05 RDW 14.1 % (11.6-16.5) 01/22/18 21:05 Plt Count 328 X10^3/uL (150.0-450.0) 01/22/18 21:05 MPV 6.4 fL (7.4-11.0) L 01/22/18 21:05 Neut % (Auto) 60.6 % (42.0-75.0) 01/22/18 21:05 Lymph % (Auto) 24.7 % (21.0-51.0) 01/22/18 21:05 Coffee % (Auto) 11.6 % (0.0-13.0) 01/22/18 21:05 Eos % (Auto) 2.1 % (0.9-2.9) 01/22/18 21:05 Baso % (Auto) 1.0 % (0.2-1.0) 01/22/18 21:05 Neut # (Auto) 5.1 x10^3/uL (2.2-4.8) H 01/22/18 21:05 Lymph # (Auto) 2.1 X10^3/uL (1.3-2.9) 01/22/18 21:05 Coffee # (Auto) 1.0 x10^3/uL (0.3-0.8) H 01/22/18 21:05 Eos # (Auto) 0.2 x10^3/uL (0.0-0.2) 01/22/18 21:05 Baso # (Auto) 0.1 X10^3/uL (0.0-0.1) 01/22/18 21:05 Absolute Nucleated RBC 0.0 /100WBC 01/22/18 21:05 INR Target Range - 01/22/18 21:05 INR 1.03 (0.8-1.3) 01/22/18 21:05 APTT 28.1 SECONDS (22.9-36.5) 01/22/18 21:05 PTT Comment - 01/22/18 21:05 D-Dimer 1310 ng/mL (0-400) H* 01/22/18 21:05 Sodium 132 mmol/L (136-145) L 01/22/18 21:05 Corrected Sodium TNP 01/22/18 21:05 Potassium 3.2 mmol/L (3.5-5.1) L 01/22/18 21:05 Chloride 97 mmol/L (98-107) L 01/22/18 21:05 Carbon Dioxide 26.3 mmol/L (21-32) 01/22/18 21:05 BUN 15 mg/dL (7-18) 01/22/18 21:05 Creatinine 0.91 mg/dL (0.55-1.02) 01/22/18 21:05 Est GFR (MDRD) Af Amer > 60 (>60) 01/22/18 21:05 Est GFR (MDRD) Non-Af > 60 (>60) 01/22/18 21:05 Glucose 110 mg/dL (65-99) H 01/22/18 21:05 Calcium 10.3 mg/dL (8.5-10.1) H 01/22/18 21:05 Corrected Calcium TNP 01/22/18 21:05 Magnesium 1.8 mg/dL (1.7-2.9) 01/22/18 21:05 Total Bilirubin 0.40 mg/dL (0.2-1.0) 01/22/18 21:05 AST 10 Units/L (15-37) L 01/22/18 21:05 ALT 21 Units/L (12-78) 01/22/18 21:05 Alkaline Phosphatase 76 Units/L (46-116) 01/22/18 21:05 Creatine Kinase 78 Units/L (26-192) 01/22/18 21:05 CK-MB (CK-2) 1.3 ng/mL (0-4.0) 01/22/18 21:05 CK/CKMB % Calc 1.7 % (<4) 01/22/18 21:05 Troponin I 0.05 ng/mL (0-1.5) 01/22/18 21:05 Total Protein 7.1 g/dL (6.4-8.2) 01/22/18 21:05 Albumin 3.5 g/dL (3.4-5.0) 01/22/18 21:05 Globulin 3.6 g/dL (2.5-4.5) 01/22/18 21:05 Albumin/Globulin Ratio 1.0 Ratio (1.1-2.1) L 01/22/18 21:05 - Diagnosis Discharge Problem: Altered mental status, CVA (cerebral vascular accident), Hyponatremia, Syncope and collapse, Hypokalemia - Discharge Plan Disposition: ADMITTED INPATIENT Condition: Stable - Follow ups/Referrals Follow ups/Referrals: Martir Carter [Primary Care Provider] - 3 days - Instructions
[2018-01-22 21:15] LABS: BASOPHILS # (AUTO) 0.1 X10^3/uL (0.0-0.1); EOSINOPHILS # (AUTO) 0.2 x10^3/uL (0.0-0.2); EOSINOPHILS % (AUTO) 2.1 % (0.9-2.9); HEMOGLOBIN 12.9 g/dL (12.0-16.0); LYMPHOCYTES # (AUTO) 2.1 X10^3/uL (1.3-2.9); LYMPHOCYTES % (AUTO) 24.7 % (21.0-51.0); MEAN CORPUSCULAR HEMOGLOBIN 33.3 pg (27.0-34.0); MEAN CORPUSCULAR HGB CONC 35.8 g/dL (33.0-35.0); MEAN PLATELET VOLUME 6.4 fL (7.4-11.0); MONOCYTES % (AUTO) 11.6 % (0.0-13.0); NEUTROPHILS # (AUTO) 5.1 x10^3/uL (2.2-4.8); NEUTROPHILS % (AUTO) 60.6 % (42.0-75.0); PLATELET COUNT 328 X10^3/uL (150.0-450.0); RED BLOOD COUNT 3.87 X10^6/uL (3.5-5.4); RED CELL DISTRIBUTION WIDTH 14.1 % (11.6-16.5); WHITE BLOOD COUNT 8.5 X10^3/uL (3.6-10.0)
--- NOTE | 2018-01-22 21:36 | CT ---
CT HEAD WITHOUT CONTRAST CLINICAL HISTORY: 77-year-old female with confusion, patient compatible. COMPARISON: CT head 07/12/2017. TECHNIQUE: Multiple, non-contrasted axial CT images were obtained from the skull base to the cranial vertex. Coronal and sagittal reformats were performed. FINDINGS: Study is significantly limited secondary to patient motion. Beam hardening and streak artifact from bilateral supraclinoid ICA aneurysm coil/clip. There are no abnormal intra- or extra-axial fluid collections, midline shift, or mass effect. Lopez-wh ite differentiation is normal. Global cortical involutional changes are present that are mildly advan meme for the patient's stated age. The ventricular system is enlarged but commensurate with the degree of sulcal prominence. Chronic ischemic insult left MCA territory with encephalomalacia. Periventricu lar and supraventricular white matter hypodensity is present that is nonspecific in appearance, but m ost likely to represent microvascular ischemic changes. Atherosclerotic vascular calcification is pre sent within the carotid siphons and distal vertebral arteries. The imaged paranasal sinuses, mastoid air cells, and tympanic spaces are clear. IMPRESSION: 1. Significant motion degradation of the examination. 2. No gross evidence of an acute intracranial process given limitations of motion. 3. 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 4. Moderate microvascular white matter ischemic changes, with associated volume loss. Reported By:
--- NOTE | 2018-01-22 21:36 | RAD ---
HISTORY: 77-year-old female status post fall with chest pain. Study: Frontal view of the chest. Comparison: Chest radiograph 03/17/2017 Findings: Surgical clips left axilla unchanged. The trachea is midline. The cardiac silhouette is stably enlarged. The lungs are clear without foca l consolidation, effusion or pneumothorax. Soft tissues are unremarkable. Osseous structures are unr emarkable. IMPRESSION: 1. No acute cardiopulmonary disease. Reported By:
[2018-01-22] MEDS: NS 1000 ML 1,000 ML IV SCH (21:37)
[2018-01-22 21:59] LABS: ALANINE AMINOTRANSFERASE 21 Units/L (12-78); ALBUMIN 3.5 g/dL (3.4-5.0); ALKALINE PHOSPHATASE 76 Units/L (46-116); ASPARTATE AMINO TRANSFERASE 10 Units/L (15-37); BLOOD UREA NITROGEN 15 mg/dL (7-18); CALCIUM 10.3 mg/dL (8.5-10.1); CARBON DIOXIDE 26.3 mmol/L (21-32); CHLORIDE 97 mmol/L (98-107); CKMB % 1.7 % (<4); CREATINE KINASE 78 Units/L (26-192); CREATINE KINASE MB 1.3 ng/mL (0-4.0); CREATININE 0.91 mg/dL (0.55-1.02); MAGNESIUM 1.8 mg/dL (1.7-2.9); SODIUM 132 mmol/L (136-145); TOTAL PROTEIN 7.1 g/dL (6.4-8.2); TROPONIN I 0.05 ng/mL (0-1.5); eGFR NON BLACK RACES > 60 (>60)
[2018-01-22] MEDS: K-LYTE EFFERVESCENT PO SCH (22:40)
[2018-01-22] MEDS ORDERED: NS 100 ML IV 100 ML IV ONE (22:46)
--- NOTE | 2018-01-22 23:22 | CT ---
CT ANGIOGRAPHY OF THE CHEST CLINICAL HISTORY: 77-year-old female status post fall last night striking her head. Patient with elev ated D-dimer. COMPARISON: Chest radiograph this date. TECHNIQUE: CT angiogram of the chest was performed following the uncomplicated administration of 75 m L Omnipaque 350 intravenous contrast as per routine pulmonary embolus protocol. Coronal and Sagittal reformats provided. MIP reformats are submitted for review. FINDINGS: No pulmonary embolus is seen. There is no thoracic aortic dissection. The heart is normal in size and there is no pericardial effusion. There is no axillary or mediastina l lymphadenopathy. Evaluation of the lung parenchyma demonstrates no pulmonary nodules, masses, or airspace opacities. T he trachea and mainstem bronchi are patent. There is no pleural effusion or pneumothorax. Simple appearing 1.6 cm left renal cyst. Remaining imaged upper abdomen is unremarkable. Severe atherosclerotic calcification the aorta and its branches. Status post left mastectomy with implant reconstruction. The osseous structures are intact without f racture or malalignment with multilevel degenerative change. IMPRESSION: 1. No pulmonary embolus. 2. See above for other incidental, non acute findings. Reported By:
[2018-01-23] MEDS ORDERED: NS 1000 ML 1,000 ML IV SCH (01:00)
[2018-01-23 03:07] VITALS: BMI 24.3
[2018-01-23 06:47] LABS: BASOPHILS # (AUTO) 0.1 X10^3/uL (0.0-0.1); BASOPHILS % (AUTO) 0.9 % (0.2-1.0); EOSINOPHILS # (AUTO) 0.2 x10^3/uL (0.0-0.2); EOSINOPHILS % (AUTO) 2.6 % (0.9-2.9); HEMATOCRIT 34.4 % (36.0-47.0); HEMOGLOBIN 12.3 g/dL (12.0-16.0); LYMPHOCYTES # (AUTO) 1.8 X10^3/uL (1.3-2.9); LYMPHOCYTES % (AUTO) 25.9 % (21.0-51.0); MEAN CORPUSCULAR HEMOGLOBIN 33.2 pg (27.0-34.0); MEAN CORPUSCULAR HGB CONC 35.7 g/dL (33.0-35.0); MEAN CORPUSCULAR VOLUME 93.1 fL (80.0-100.0); MEAN PLATELET VOLUME 6.9 fL (7.4-11.0); MONOCYTES # (AUTO) 0.9 x10^3/uL (0.3-0.8); MONOCYTES % (AUTO) 12.4 % (0.0-13.0); NEUTROPHILS % (AUTO) 58.2 % (42.0-75.0); PLATELET COUNT 329 X10^3/uL (150.0-450.0); RED BLOOD COUNT 3.69 X10^6/uL (3.5-5.4); RED CELL DISTRIBUTION WIDTH 13.9 % (11.6-16.5); WHITE BLOOD COUNT 6.9 X10^3/uL (3.6-10.0)
[2018-01-23 07:07] LABS: ALANINE AMINOTRANSFERASE 22 Units/L (12-78); ALBUMIN 3.2 g/dL (3.4-5.0); ALKALINE PHOSPHATASE 66 Units/L (46-116); BLOOD UREA NITROGEN 11 mg/dL (7-18); CALCIUM 10.1 mg/dL (8.5-10.1); CARBON DIOXIDE 25.4 mmol/L (21-32); CHLORIDE 100 mmol/L (98-107); COR CA(FOR HYPOALB) 10.7 mg/dL (8.5-10.1); CREATININE 0.77 mg/dL (0.55-1.02); MAGNESIUM 1.7 mg/dL (1.7-2.9); SODIUM 133 mmol/L (136-145); TOTAL PROTEIN 6.5 g/dL (6.4-8.2); eGFR NON BLACK RACES > 60 (>60)
[2018-01-23 07:25] LABS: ASPARTATE AMINO TRANSFERASE 17 Units/L (15-37)
[2018-01-23] MEDS: MORPHINE SULFATE INJ 2 MG INJ IVP PRN ×2 (07:35→23:49)
[2018-01-23] MEDS ORDERED: LOSARTAN PO SCH (09:00)
[2018-01-23] MEDS: K-LYTE EFFERVESCENT PO SCH (09:04)
[2018-01-23] MEDS: COZAAR PO SCH (09:15)
[2018-01-23] MEDS: PEPCID TAB 20 MG PO SCH ×2 (09:15→21:08)
[2018-01-23 10:26] LABS: BILIRUBIN,URINE NEGATIVE (NEGATIVE); BLOOD/HEMOGLOBIN,URINE NEGATIVE (NEGATIVE); GLUCOSE, URINE NEGATIVE (NEGATIVE); KETONES,URINE NEGATIVE (NEGATIVE); LEUKOCYTE ESTERASE ,URINE NEGATIVE (NEGATIVE); NITRITES,URINE NEGATIVE (NEGATIVE); PROTEIN,URINE NEGATIVE (NEGATIVE); UROBILINOGEN,URINE NORMAL (NORMAL)
[2018-01-23 10:31] LABS: APPEARANCE,URINE CLEAR (CLEAR); COLOR,URINE YELLOW (YELLOW)
[2018-01-23] MEDS: HALDOL INJ IM PRN (10:38)
[2018-01-23] MEDS: NS 1000 ML 1,000 ML IV SCH (12:53)
[2018-01-23] MEDS: LIPITOR TAB 20 MG PO SCH (21:08)
[2018-01-24] MEDS: NS 1000 ML 1,000 ML IV SCH ×2 (01:22→16:40)
[2018-01-24 06:23] LABS: BASOPHILS # (AUTO) 0.1 X10^3/uL (0.0-0.1); BASOPHILS % (AUTO) 1.2 % (0.2-1.0); EOSINOPHILS # (AUTO) 0.6 x10^3/uL (0.0-0.2); EOSINOPHILS % (AUTO) 7.6 % (0.9-2.9); HEMATOCRIT 35.2 % (36.0-47.0); HEMOGLOBIN 12.5 g/dL (12.0-16.0); LYMPHOCYTES # (AUTO) 1.8 X10^3/uL (1.3-2.9); LYMPHOCYTES % (AUTO) 23.9 % (21.0-51.0); MEAN CORPUSCULAR HEMOGLOBIN 32.9 pg (27.0-34.0); MEAN CORPUSCULAR HGB CONC 35.4 g/dL (33.0-35.0); MEAN CORPUSCULAR VOLUME 92.9 fL (80.0-100.0); MEAN PLATELET VOLUME 6.8 fL (7.4-11.0); MONOCYTES # (AUTO) 0.8 x10^3/uL (0.3-0.8); MONOCYTES % (AUTO) 10.8 % (0.0-13.0); NEUTROPHILS # (AUTO) 4.2 x10^3/uL (2.2-4.8); NEUTROPHILS % (AUTO) 56.5 % (42.0-75.0); PLATELET COUNT 338 X10^3/uL (150.0-450.0); RED BLOOD COUNT 3.79 X10^6/uL (3.5-5.4); RED CELL DISTRIBUTION WIDTH 13.9 % (11.6-16.5); WHITE BLOOD COUNT 7.5 X10^3/uL (3.6-10.0)
[2018-01-24] MEDS: HALDOL INJ IM PRN ×2 (07:13→16:41)
[2018-01-24 07:14] LABS: ALANINE AMINOTRANSFERASE 23 Units/L (12-78); ALBUMIN 3.3 g/dL (3.4-5.0); ALKALINE PHOSPHATASE 65 Units/L (46-116); ASPARTATE AMINO TRANSFERASE 16 Units/L (15-37); BLOOD UREA NITROGEN 13 mg/dL (7-18); CALCIUM 9.8 mg/dL (8.5-10.1); CARBON DIOXIDE 20.7 mmol/L (21-32); CHLORIDE 104 mmol/L (98-107); COR CA(FOR HYPOALB) 10.4 mg/dL (8.5-10.1); SODIUM 136 mmol/L (136-145); TOTAL PROTEIN 6.7 g/dL (6.4-8.2); eGFR NON BLACK RACES > 60 (>60)
[2018-01-24] MEDS: COZAAR PO SCH (09:03)
[2018-01-24] MEDS: K-LYTE EFFERVESCENT PO SCH (09:03)
[2018-01-24] MEDS: MILK OF MAGNESIA PO SCH (09:03)
[2018-01-24] MEDS: PEPCID TAB 20 MG PO SCH ×2 (09:04→20:25)
[2018-01-24] MEDS: ATIVAN TAB 1 MG PO SCH ×3 (11:52→21:05)
--- NOTE | 2018-01-24 20:22 | DR.H&P ---
H&P - History & Physical for Day of: H&P Date: 01/22/18 - Chief Complaint Chief Complaint: altered mental status, falls - History of Present Illness History of Present Illness: is a 77 year old patient of ours who presented to the Emergency Room with confusion after a fall on 01/22/18 in which she hit her head. Family states the patient fell last night while going to the bathroom and hit her head and has been talking out of her head today. Spouse states that he went outside today and came back and she was on the floor again. States she has had a large bleed in 2011. Spouse reports that she has been having problems with her balance. Patient is confused, stating that she is 34 years old and does not know where she is. She denied chest pain or SOB. Medical HX includes the following: CVA, HTN, Bronchitis, GERD, UTI, Arthritis, Anxiety, Depression, Hysterectomy, Left Breast Reconstruction. On arrival, vitals were 98.1, 69, 11, 96% RA, 146/62. Labs were obtained. Abnormal Labs include the following: MCHC 35.8, MPV 6.4, D-Dimer 1310, Sodium 132, Potassium 3.2, Glucose 110, Calcium 10.3, AST 10, A/G ratio 1.0.Chest x-ray revealed no acute cardiopulmonary disease. Brain CT revealed: 1. Significant motion degradation of the examination. No gross evidence of an acute intracranial process given limitations of motion. 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 Moderate microvascular white matter ischemic changes, with associated volume loss. Chest CTA revealed no pulmonary embolus. EKG revealed: Sinus rhythm. HR= 72.Patient admitted to the hospital as an observation patient for further evaluation of altered mental status, to rule out CVA, hypokalemia, and hyponatremia. We will start NS 1000 ML IV @ 75 ML/HR for gentle IV hydration. Patient will have Morphine 1-2 MG IVP Q4H PRN for pain control. We will continue to monitor and repeat labs in the am. - Past Medical History Past Medical History: Anxiety, CVA, Dyslipidemia, GERD, Hypertension - Past Surgical History Surgical History: Hysterectomy - Family History Family Medical History: Cancer, Hypertension - Social History Does patient currently use any type of tobacco product: Yes (30 yr smoker) Have you used tobacco products in the last 12 months: Yes Type of Tobacco Use: Cigarettes Does any household member use tobacco: Yes Alcohol Use: None Drug Use: None - Medications Home Medications: amoxicillin Allergy (Verified 07/12/17 11:49) Penicillins Allergy (Verified 07/12/17 11:49) CONTINUE taking the following medications alprazolam 1 tab PO TID 01/23/18 [History] aspirin [Jordon Aspirin] 1 tab PO DAILY 01/23/18 [History] atorvastatin 1 tab PO DAILY 01/23/18 [History] famotidine 2 tab PO DAILY 01/23/18 [History] losartan 1 tab PO DAILY 01/23/18 [History] megestrol 1 tab PO DAILY 01/23/18 [History] metoprolol tartrate 1 tab PO BID 01/23/18 [History] pantoprazole [Protonix] 1 tab PO DAILY 01/23/18 [History] - Review of Systems Constitutional: Weakness. denies: Fever, Chills, Sweats Eyes: No Symptoms Reported ENT: No Symptoms Reported Respiratory: No Symptoms Reported Cardiovascular: No Symptoms Reported Gastrointestinal: No Symptoms Reported Genitourinary: No Symptoms Reported Musculoskeletal: No Symptoms Reported Skin: No Symptoms Reported Neurological: Weakness, Confusion - Physical Exam Vital Signs: Temperature 97.0 F Pulse Rate [Apical] 85 Pulse Rate 70 Respiratory Rate 22 Blood Pressure [Left Arm] 158/76 Blood Pressure [Right Calf] 164/73 Blood Pressure [Right Arm] 160/68 Blood Pressure 132/62 O2 Sat by Pulse Oximetry 98 Oriented: Not Oriented Eyes: Normal Ear: Normal Nose: Normal Throat: Normal Respiratory: Clear Throughout Cardiovascular: Normal : Normal Auscultation: Bowel Sounds: Normal Palpation: Normal Tenderness: Normal Skin: Normal Musculoskeletal: Instability Psychiatric: Normal Mood Description: Calm Affect: Normal Speech Pattern: Clear - Assessment/Plan (1) Altered mental status Status: Acute (2) Syncope and collapse Status: Acute (3) Hypokalemia Status: Acute (4) Weakness generalized Status: Acute (5) History of CVA (cerebrovascular accident) Status: Acute - Allergies Allergies/Adverse Reactions: Allergies Allergy/AdvReac Type Severity Reaction Status Date / Time amoxicillin Allergy Verified 07/12/17 11:49 Penicillins Allergy Verified 07/12/17 11:49
[2018-01-24] MEDS: LIPITOR TAB 20 MG PO SCH (20:25)
[2018-01-25] MEDS: ATIVAN TAB 1 MG PO SCH ×3 (05:16→21:25)
[2018-01-25 06:41] LABS: BASOPHILS # (AUTO) 0.1 X10^3/uL (0.0-0.1); BASOPHILS % (AUTO) 1.1 % (0.2-1.0); EOSINOPHILS # (AUTO) 0.6 x10^3/uL (0.0-0.2); EOSINOPHILS % (AUTO) 8.7 % (0.9-2.9); HEMATOCRIT 36.7 % (36.0-47.0); HEMOGLOBIN 13.1 g/dL (12.0-16.0); LYMPHOCYTES # (AUTO) 1.4 X10^3/uL (1.3-2.9); LYMPHOCYTES % (AUTO) 20.1 % (21.0-51.0); MEAN CORPUSCULAR HGB CONC 35.7 g/dL (33.0-35.0); MEAN CORPUSCULAR VOLUME 92.4 fL (80.0-100.0); MEAN PLATELET VOLUME 6.6 fL (7.4-11.0); MONOCYTES # (AUTO) 0.8 x10^3/uL (0.3-0.8); MONOCYTES % (AUTO) 11.3 % (0.0-13.0); NEUTROPHILS # (AUTO) 4.1 x10^3/uL (2.2-4.8); NEUTROPHILS % (AUTO) 58.8 % (42.0-75.0); PLATELET COUNT 369 X10^3/uL (150.0-450.0); RED BLOOD COUNT 3.97 X10^6/uL (3.5-5.4); RED CELL DISTRIBUTION WIDTH 13.9 % (11.6-16.5); WHITE BLOOD COUNT 6.9 X10^3/uL (3.6-10.0)
[2018-01-25 07:17] LABS: ALANINE AMINOTRANSFERASE 25 Units/L (12-78); ALBUMIN 3.6 g/dL (3.4-5.0); ALKALINE PHOSPHATASE 73 Units/L (46-116); ASPARTATE AMINO TRANSFERASE 18 Units/L (15-37); BLOOD UREA NITROGEN 9 mg/dL (7-18); CALCIUM 9.9 mg/dL (8.5-10.1); CARBON DIOXIDE 26.1 mmol/L (21-32); CHLORIDE 100 mmol/L (98-107); CREATININE 0.73 mg/dL (0.55-1.02); SODIUM 135 mmol/L (136-145); TOTAL PROTEIN 7.2 g/dL (6.4-8.2); eGFR NON BLACK RACES > 60 (>60)
[2018-01-25] MEDS: MILK OF MAGNESIA PO SCH (08:34)
[2018-01-25] MEDS: K-LYTE EFFERVESCENT PO SCH (08:43)
[2018-01-25] MEDS: LOPRESSOR TAB 50 MG PO SCH ×2 (08:44→20:02)
[2018-01-25] MEDS: PEPCID TAB 20 MG PO SCH ×2 (08:45→20:02)
[2018-01-25] MEDS: PROTONIX TAB 40 MG PO SCH (08:45)
[2018-01-25] MEDS: MEGACE PO SCH (08:45)
[2018-01-25] MEDS: COZAAR PO SCH (08:45)
--- NOTE | 2018-01-25 15:37 | PCM.PROG ---
Progress Note - Progress Note for Day of Date: 01/25/18 - Subjective Subjective: WAS ADMITTED FOR ALTERED MENTAL STATUS AND HYPOKALEMIA. TODAY, SHE IS SITTING UP IN CHAIR ON MORNING ROUNDS. SHE CONTINUES WITH DISORIENTATION AND GENERALIZED WEAKNESS. SPOUSE REPORTS THAT PATIENT HAS BEEN AGITATED AND YELLING OUT THROUGHOUT THE NIGHT. STAFF REPORTS THAT SHE HAS TRIED TO GET OUT OF BED SEVERAL TIMES. ON EXAMINATION, HEART IS REGULAR IN RATE AND RHYTHM. BILATERAL LUNGS ARE NOTED WITH DIMINISHED LUNG SOUNDS THROGHOUT. ABDOMEN IS ROUND, SOFT, AND NON-TENDER WITH NORMAL BOWEL SOUNDS NOTED IN ALL QUADRANTS. HER VITALS THIS MORNING ARE 98.9-66-24-96%-166/72. LABS WERE OBTAINED. ABNORMAL LAB VALUES INCLUDE THE FOLLOWING: HCT 35.2, CARBON DIOXIDE 20.7, ALBUMIN 3.3. CARDIAC ENZYMES AND EKGS HAVE BEEN WITHIN NORMAL LIMITS. TODAY, WE WILL START SEROQUEL 50MG PO BID. OTHERWISE, WE WILL CONTINUE WITH CURRENT PLAN OF CARE. WE WILL FOLLOW UP WITH AM LABS AND COTNINUE TO MONITOR PATIENT. - Past Medical Family Social History Past Med/Fam/Surg Hx: No changes since H&P Allergies: Allergies amoxicillin Allergy (Verified 07/12/17 11:49) Penicillins Allergy (Verified 07/12/17 11:49) - Review of Systems ROS: No change since H&P - Vital Signs and I&O's Vital Signs: Temperature 97.7 F Pulse Rate [Apical] 60 Pulse Rate 70 Respiratory Rate 30 Blood Pressure [Left Arm] 149/65 Blood Pressure [Right Calf] 164/73 Blood Pressure [Right Arm] 160/68 Blood Pressure 132/62 O2 Sat by Pulse Oximetry 100 Intake and Output: Intake & Output 01/23/18 01/24/18 01/25/18 01/26/18 11:59 11:59 11:59 11:59 Intake Total 2375 / 2375 1400 / 1400 Output Total 2475 / 2475 Balance -100 / -100 1399 / 1399 - Physical Exam Oriented: Not Oriented Eyes: Normal Ear: Normal Nose: Normal Throat: Normal Respiratory: Diminished Cardiovascular: Normal : Normal Auscultation: Bowel Sounds: Normal Palpation: Normal Tenderness: Normal Skin: Normal Musculoskeletal: Instability Psychiatric: Agitation Mood Description: Calm Affect: Flat Speech Pattern: Clear, Inappropriate - Laboratory and Diagnostics Result Diagrams: 01/25/18 05:52 06/12/18 05:52 Labs: 01/23/18 10:13 Urine,Clean Catch Urine Culture - Final Laboratory WBC 6.9 X10^3/uL (3.6-10.0) 01/25/18 05:52 RBC 3.97 X10^6/uL (3.5-5.4) 01/25/18 05:52 Hgb 13.1 g/dL (12.0-16.0) 01/25/18 05:52 Hct 36.7 % (36.0-47.0) 01/25/18 05:52 MCV 92.4 fL (80.0-100.0) 01/25/18 05:52 MCH 33.0 pg (27.0-34.0) 01/25/18 05:52 MCHC 35.7 g/dL (33.0-35.0) H 01/25/18 05:52 RDW 13.9 % (11.6-16.5) 01/25/18 05:52 Plt Count 369 X10^3/uL (150.0-450.0) 01/25/18 05:52 MPV 6.6 fL (7.4-11.0) L 01/25/18 05:52 Neut % (Auto) 58.8 % (42.0-75.0) 01/25/18 05:52 Lymph % (Auto) 20.1 % (21.0-51.0) L 01/25/18 05:52 [place] % (Auto) 11.3 % (0.0-13.0) 01/25/18 05:52 Eos % (Auto) 8.7 % (0.9-2.9) H 01/25/18 05:52 Baso % (Auto) 1.1 % (0.2-1.0) H 01/25/18 05:52 Neut # (Auto) 4.1 x10^3/uL (2.2-4.8) 01/25/18 05:52 Lymph # (Auto) 1.4 X10^3/uL (1.3-2.9) 01/25/18 05:52 [place] # (Auto) 0.8 x10^3/uL (0.3-0.8) 01/25/18 05:52 Eos # (Auto) 0.6 x10^3/uL (0.0-0.2) H 01/25/18 05:52 Baso # (Auto) 0.1 X10^3/uL (0.0-0.1) 01/25/18 05:52 Absolute Nucleated RBC 0.0 /100WBC 01/25/18 05:52 INR Target Range - 01/22/18 21:05 INR 1.03 (0.8-1.3) 01/22/18 21:05 APTT 28.1 SECONDS (22.9-36.5) 01/22/18 21:05 PTT Comment - 01/22/18 21:05 D-Dimer 1310 ng/mL (0-400) H* 01/22/18 21:05 Sodium 135 mmol/L (136-145) L 01/25/18 05:52 Corrected Sodium TNP 01/25/18 05:52 Potassium 3.9 mmol/L (3.5-5.1) 01/25/18 05:52 Chloride 100 mmol/L (98-107) 01/25/18 05:52 Carbon Dioxide 26.1 mmol/L (21-32) 01/25/18 05:52 BUN 9 mg/dL (7-18) 01/25/18 05:52 Creatinine 0.73 mg/dL (0.55-1.02) 01/25/18 05:52 Est GFR (MDRD) Af Amer > 60 (>60) 01/25/18 05:52 Est GFR (MDRD) Non-Af > 60 (>60) 01/25/18 05:52 Glucose 89 mg/dL (65-99) 01/25/18 05:52 Calcium 9.9 mg/dL (8.5-10.1) 01/25/18 05:52 Corrected Calcium TNP 01/25/18 05:52 Magnesium 1.7 mg/dL (1.7-2.9) 01/23/18 05:57 Total Bilirubin 0.60 mg/dL (0.2-1.0) 01/25/18 05:52 AST 18 Units/L (15-37) 01/25/18 05:52 ALT 25 Units/L (12-78) 01/25/18 05:52 Alkaline Phosphatase 73 Units/L (46-116) 01/25/18 05:52 Creatine Kinase 78 Units/L (26-192) 01/22/18 21:05 CK-MB (CK-2) 1.3 ng/mL (0-4.0) 01/22/18 21:05 CK/CKMB % Calc 1.7 % (<4) 01/22/18 21:05 Troponin I 0.05 ng/mL (0-1.5) 01/22/18 21:05 Total Protein 7.2 g/dL (6.4-8.2) 01/25/18 05:52 Albumin 3.6 g/dL (3.4-5.0) 01/25/18 05:52 Globulin 3.6 g/dL (2.5-4.5) 01/25/18 05:52 Albumin/Globulin Ratio 1.0 Ratio (1.1-2.1) L 01/25/18 05:52 Specimen Type Catherized urine 01/23/18 10:13 Urine Color Yellow (YELLOW) 01/23/18 10:13 Urine Appearance Clear (CLEAR) 01/23/18 10:13 Urine pH 7.0 (5.0 - 8.0) 01/23/18 10:13 Ur Specific [place] 1.010 (1.000-1.030) 01/23/18 10:13 Urine Protein Negative (NEGATIVE) 01/23/18 10:13 Urine Glucose (UA) Negative (NEGATIVE) 01/23/18 10:13 Urine Ketones Negative (NEGATIVE) 01/23/18 10:13 Urine Occult Blood Negative (NEGATIVE) 01/23/18 10:13 Urine Nitrite Negative (NEGATIVE) 01/23/18 10:13 Urine Bilirubin Negative (NEGATIVE) 01/23/18 10:13 Urine Urobilinogen Normal (NORMAL) 01/23/18 10:13 Ur Leukocyte Esterase Negative (NEGATIVE) 01/23/18 10:13 - Plan (1) Altered mental status Status: Acute Qualifiers: Altered mental status type: transient alteration of awareness Qualified Code(s): R40.4 - Transient alteration of awareness Plan: SEROQUEL 50MG PO BID, HALDOL IM, CONTINUE TO MONITOR (2) Syncope and collapse Status: Acute (3) Hypokalemia Status: Acute (4) Weakness generalized Status: Acute (5) History of CVA (cerebrovascular accident) Status: Acute
[2018-01-25] MEDS: LIPITOR TAB 20 MG PO SCH (20:02)
[2018-01-26] MEDS: XANAX PO PRN ×2 (00:46→11:53)
[2018-01-26] MEDS: ATIVAN TAB 1 MG PO SCH ×3 (05:15→21:27)
[2018-01-26 06:13] LABS: BASOPHILS # (AUTO) 0.1 X10^3/uL (0.0-0.1); BASOPHILS % (AUTO) 0.8 % (0.2-1.0); EOSINOPHILS # (AUTO) 0.7 x10^3/uL (0.0-0.2); HEMATOCRIT 40.6 % (36.0-47.0); HEMOGLOBIN 14.4 g/dL (12.0-16.0); LYMPHOCYTES # (AUTO) 1.7 X10^3/uL (1.3-2.9); LYMPHOCYTES % (AUTO) 17.9 % (21.0-51.0); MEAN CORPUSCULAR HEMOGLOBIN 33.1 pg (27.0-34.0); MEAN CORPUSCULAR HGB CONC 35.4 g/dL (33.0-35.0); MEAN CORPUSCULAR VOLUME 93.6 fL (80.0-100.0); MEAN PLATELET VOLUME 6.7 fL (7.4-11.0); MONOCYTES # (AUTO) 0.9 x10^3/uL (0.3-0.8); MONOCYTES % (AUTO) 10.1 % (0.0-13.0); NEUTROPHILS % (AUTO) 64.2 % (42.0-75.0); PLATELET COUNT 375 X10^3/uL (150.0-450.0); RED BLOOD COUNT 4.34 X10^6/uL (3.5-5.4); WHITE BLOOD COUNT 9.4 X10^3/uL (3.6-10.0)
[2018-01-26 06:34] LABS: ALANINE AMINOTRANSFERASE 25 Units/L (12-78); ALBUMIN 3.7 g/dL (3.4-5.0); ALKALINE PHOSPHATASE 79 Units/L (46-116); ASPARTATE AMINO TRANSFERASE 20 Units/L (15-37); BLOOD UREA NITROGEN 11 mg/dL (7-18); CALCIUM 10.1 mg/dL (8.5-10.1); CARBON DIOXIDE 23.4 mmol/L (21-32); CHLORIDE 100 mmol/L (98-107); CREATININE 0.69 mg/dL (0.55-1.02); SODIUM 133 mmol/L (136-145); TOTAL PROTEIN 7.6 g/dL (6.4-8.2); eGFR NON BLACK RACES > 60 (>60)
--- NOTE | 2018-01-26 07:59 | PCM.PROG ---
Progress Note - Progress Note for Day of Date: 01/25/18 - Subjective Subjective: WAS ADMITTED FOR ALTERED MENTAL STATUS AND HYPOKALEMIA. TODAY, SHE IS LYING IN BED ON MORNING ROUNDS. SHE CONTINUES WITH DISORIENTATION AND GENERALIZED WEAKNESS. STAFF REPORTS THAT SHE HAS BEEN AGITATED THROUGHOUT THE NIGHT. ON EXAMINATION, HEART IS REGULAR IN RATE AND RHYTHM. BILATERAL LUNGS ARE NOTED WITH DIMINISHED LUNG SOUNDS THROGHOUT. ABDOMEN IS ROUND, SOFT, AND NON-TENDER WITH NORMAL BOWEL SOUNDS NOTED IN ALL QUADRANTS. HER VITALS THIS MORNING ARE 97.1-81-20-98%-139/63. LABS WERE OBTAINED. SODIUM IS 133, OTHERWISE , SHE IS HEMODYNAMICALLY STABLE. TODAY, WE WILL DISCONTINUE THE SEROQUEL AND START ZYPREXA 2.5MG PO BID AND XANAX 0.25MG PO BID. OTHERWISE, WE WILL CONTINUE WITH CURRENT PLAN OF CARE. WE WILL FOLLOW UP WITH AM LABS AND CONTINUE TO MONITOR PATIENT. - Past Medical Family Social History Past Med/Fam/Surg Hx: No changes since H&P Allergies: Allergies amoxicillin Allergy (Verified 07/12/17 11:49) Penicillins Allergy (Verified 07/12/17 11:49) - Review of Systems ROS: No change since H&P - Vital Signs and I&O's Vital Signs: Temperature 97.7 F Pulse Rate [Apical] 70 Pulse Rate 70 Respiratory Rate 19 Blood Pressure [Left Arm] 168/85 Blood Pressure [Right Calf] 164/73 Blood Pressure [Right Arm] 160/68 Blood Pressure 132/62 O2 Sat by Pulse Oximetry 100 Intake and Output: Intake & Output 01/23/18 01/24/18 01/25/18 01/26/18 11:59 11:59 11:59 11:59 Intake Total 2375 / 2375 1400 / 1400 640 / 640 Output Total 2475 / 2475 Balance -100 / -100 1399 / 1399 640 / 640 - Physical Exam Oriented: Not Oriented Eyes: Normal Ear: Normal Nose: Normal Throat: Normal Respiratory: Diminished Cardiovascular: Normal : Normal Auscultation: Bowel Sounds: Normal Palpation: Normal Tenderness: Normal Skin: Normal Musculoskeletal: Instability Psychiatric: Agitation Mood Description: Calm Affect: Flat Speech Pattern: Clear, Inappropriate - Laboratory and Diagnostics Result Diagrams: 01/26/18 05:35 01/26/18 05:35 Labs: 01/23/18 10:13 Urine,Clean Catch Urine Culture - Final Laboratory WBC 9.4 X10^3/uL (3.6-10.0) 01/26/18 05:35 RBC 4.34 X10^6/uL (3.5-5.4) 01/26/18 05:35 Hgb 14.4 g/dL (12.0-16.0) 01/26/18 05:35 Hct 40.6 % (36.0-47.0) 01/26/18 05:35 MCV 93.6 fL (80.0-100.0) 01/26/18 05:35 MCH 33.1 pg (27.0-34.0) 01/26/18 05:35 MCHC 35.4 g/dL (33.0-35.0) H 01/26/18 05:35 RDW 14.0 % (11.6-16.5) 01/26/18 05:35 Plt Count 375 X10^3/uL (150.0-450.0) 01/26/18 05:35 MPV 6.7 fL (7.4-11.0) L 01/26/18 05:35 Neut % (Auto) 64.2 % (42.0-75.0) 01/26/18 05:35 Lymph % (Auto) 17.9 % (21.0-51.0) L 01/26/18 05:35 [place] % (Auto) 10.1 % (0.0-13.0) 01/26/18 05:35 Eos % (Auto) 7.0 % (0.9-2.9) H 01/26/18 05:35 Baso % (Auto) 0.8 % (0.2-1.0) 01/26/18 05:35 Neut # (Auto) 6.0 x10^3/uL (2.2-4.8) H 01/26/18 05:35 Lymph # (Auto) 1.7 X10^3/uL (1.3-2.9) 01/26/18 05:35 [place] # (Auto) 0.9 x10^3/uL (0.3-0.8) H 01/26/18 05:35 Eos # (Auto) 0.7 x10^3/uL (0.0-0.2) H 01/26/18 05:35 Baso # (Auto) 0.1 X10^3/uL (0.0-0.1) 01/26/18 05:35 Absolute Nucleated RBC 0.2 /100WBC 01/26/18 05:35 INR Target Range - 01/22/18 21:05 INR 1.03 (0.8-1.3) 01/22/18 21:05 APTT 28.1 SECONDS (22.9-36.5) 01/22/18 21:05 PTT Comment - 01/22/18 21:05 D-Dimer 1310 ng/mL (0-400) H* 01/22/18 21:05 Sodium 133 mmol/L (136-145) L 01/26/18 05:35 Corrected Sodium TNP 01/26/18 05:35 Potassium 4.8 mmol/L (3.5-5.1) 01/26/18 05:35 Chloride 100 mmol/L (98-107) 01/26/18 05:35 Carbon Dioxide 23.4 mmol/L (21-32) 01/26/18 05:35 BUN 11 mg/dL (7-18) 01/26/18 05:35 Creatinine 0.69 mg/dL (0.55-1.02) 01/26/18 05:35 Est GFR (MDRD) Af Amer > 60 (>60) 01/26/18 05:35 Est GFR (MDRD) Non-Af > 60 (>60) 01/26/18 05:35 Glucose 88 mg/dL (65-99) 01/26/18 05:35 Calcium 10.1 mg/dL (8.5-10.1) 01/26/18 05:35 Corrected Calcium TNP 01/26/18 05:35 Magnesium 1.7 mg/dL (1.7-2.9) 01/23/18 05:57 Total Bilirubin 0.80 mg/dL (0.2-1.0) 01/26/18 05:35 AST 20 Units/L (15-37) 01/26/18 05:35 ALT 25 Units/L (12-78) 01/26/18 05:35 Alkaline Phosphatase 79 Units/L (46-116) 01/26/18 05:35 Creatine Kinase 78 Units/L (26-192) 01/22/18 21:05 CK-MB (CK-2) 1.3 ng/mL (0-4.0) 01/22/18 21:05 CK/CKMB % Calc 1.7 % (<4) 01/22/18 21:05 Troponin I 0.05 ng/mL (0-1.5) 01/22/18 21:05 Total Protein 7.6 g/dL (6.4-8.2) 01/26/18 05:35 Albumin 3.7 g/dL (3.4-5.0) 01/26/18 05:35 Globulin 3.9 g/dL (2.5-4.5) 01/26/18 05:35 Albumin/Globulin Ratio 0.9 Ratio (1.1-2.1) L 01/26/18 05:35 Specimen Type Catherized urine 01/23/18 10:13 Urine Color Yellow (YELLOW) 01/23/18 10:13 Urine Appearance Clear (CLEAR) 01/23/18 10:13 Urine pH 7.0 (5.0 - 8.0) 01/23/18 10:13 Ur Specific [place] 1.010 (1.000-1.030) 01/23/18 10:13 Urine Protein Negative (NEGATIVE) 01/23/18 10:13 Urine Glucose (UA) Negative (NEGATIVE) 01/23/18 10:13 Urine Ketones Negative (NEGATIVE) 01/23/18 10:13 Urine Occult Blood Negative (NEGATIVE) 01/23/18 10:13 Urine Nitrite Negative (NEGATIVE) 01/23/18 10:13 Urine Bilirubin Negative (NEGATIVE) 01/23/18 10:13 Urine Urobilinogen Normal (NORMAL) 01/23/18 10:13 Ur Leukocyte Esterase Negative (NEGATIVE) 01/23/18 10:13 - Plan (1) Altered mental status Status: Acute Qualifiers: Altered mental status type: transient alteration of awareness Qualified Code(s): R40.4 - Transient alteration of awareness Plan: ZYPREXA 2.5MG PO BID, XANAX 0.25MG PO BID, HALDOL IM, ATIVAN, CONTINUE TO MONITOR (2) Syncope and collapse Status: Acute (3) Hypokalemia Status: Acute (4) Weakness generalized Status: Resolved (5) History of CVA (cerebrovascular accident) Status: Acute
[2018-01-26] MEDS: ASPIRIN PO SCH (10:04)
[2018-01-26] MEDS: COZAAR PO SCH (10:04)
[2018-01-26] MEDS: LOPRESSOR TAB 50 MG PO SCH ×2 (10:04→20:20)
[2018-01-26] MEDS: K-LYTE EFFERVESCENT PO SCH (10:04)
[2018-01-26] MEDS: PROTONIX TAB 40 MG PO SCH (10:05)
[2018-01-26] MEDS: PEPCID TAB 20 MG PO SCH ×2 (10:05→20:20)
[2018-01-26] MEDS: MILK OF MAGNESIA PO SCH (10:05)
[2018-01-26] MEDS: MEGACE PO SCH (10:05)
[2018-01-26] MEDS: HALDOL INJ IM PRN (16:11)
[2018-01-26] MEDS ORDERED: VISTARIL PO PRN (17:04)
[2018-01-26] MEDS: LIPITOR TAB 20 MG PO SCH (20:20)
[2018-01-27] MEDS: ATIVAN TAB 1 MG PO SCH (05:24)
[2018-01-27 06:08] LABS: BASOPHILS # (AUTO) 0.1 X10^3/uL (0.0-0.1); EOSINOPHILS # (AUTO) 0.6 x10^3/uL (0.0-0.2); EOSINOPHILS % (AUTO) 7.4 % (0.9-2.9); HEMOGLOBIN 14.6 g/dL (12.0-16.0); LYMPHOCYTES # (AUTO) 1.7 X10^3/uL (1.3-2.9); LYMPHOCYTES % (AUTO) 19.7 % (21.0-51.0); MEAN CORPUSCULAR HEMOGLOBIN 33.3 pg (27.0-34.0); MEAN CORPUSCULAR HGB CONC 35.6 g/dL (33.0-35.0); MEAN CORPUSCULAR VOLUME 93.5 fL (80.0-100.0); MEAN PLATELET VOLUME 6.5 fL (7.4-11.0); MONOCYTES # (AUTO) 0.9 x10^3/uL (0.3-0.8); MONOCYTES % (AUTO) 10.7 % (0.0-13.0); NEUTROPHILS # (AUTO) 5.3 x10^3/uL (2.2-4.8); NEUTROPHILS % (AUTO) 61.2 % (42.0-75.0); PLATELET COUNT 363 X10^3/uL (150.0-450.0); RED BLOOD COUNT 4.39 X10^6/uL (3.5-5.4); RED CELL DISTRIBUTION WIDTH 13.9 % (11.6-16.5); WHITE BLOOD COUNT 8.7 X10^3/uL (3.6-10.0)
[2018-01-27 06:16] LABS: ALANINE AMINOTRANSFERASE 19 Units/L (12-78); ALBUMIN 3.6 g/dL (3.4-5.0); ALKALINE PHOSPHATASE 82 Units/L (46-116); ASPARTATE AMINO TRANSFERASE 19 Units/L (15-37); BLOOD UREA NITROGEN 13 mg/dL (7-18); CALCIUM 10.3 mg/dL (8.5-10.1); CARBON DIOXIDE 21.7 mmol/L (21-32); CHLORIDE 100 mmol/L (98-107); CREATININE 0.68 mg/dL (0.55-1.02); SODIUM 133 mmol/L (136-145); TOTAL PROTEIN 7.4 g/dL (6.4-8.2); eGFR NON BLACK RACES > 60 (>60)
[2018-01-27] MEDS: K-LYTE EFFERVESCENT PO SCH (07:59)
[2018-01-27] MEDS: PROTONIX TAB 40 MG PO SCH (08:00)
[2018-01-27] MEDS: LOPRESSOR TAB 50 MG PO SCH ×2 (08:00→20:47)
[2018-01-27] MEDS: COZAAR PO SCH (08:00)
[2018-01-27] MEDS: PEPCID TAB 20 MG PO SCH ×2 (08:00→20:46)
[2018-01-27] MEDS: MEGACE PO SCH (08:00)
[2018-01-27] MEDS: ASPIRIN PO SCH (08:01)
--- NOTE | 2018-01-27 08:26 | PCM.PROG ---
Progress Note - Progress Note for Day of Date: 01/27/18 - Subjective Subjective: WAS ADMITTED FOR ALTERED MENTAL STATUS AND HYPOKALEMIA. TODAY, SHE IS LYING IN BED ON MORNING ROUNDS. SHE CONTINUES WITH DISORIENTATION AND GENERALIZED WEAKNESS. SPOUSE REPORTS THAT SHE DOES NOT KNOW WHO HE IS. ON EXAMINATION, HEART IS REGULAR IN RATE AND RHYTHM. BILATERAL LUNGS CONTINUE WITH DIMINISHED LUNG SOUNDS THROGHOUT. ABDOMEN IS ROUND, SOFT, AND NON-TENDER WITH NORMAL BOWEL SOUNDS NOTED IN ALL QUADRANTS. HER VITALS THIS MORNING ARE 97.7-7- 19-100%-168/85. LABS WERE OBTAINED. SHE IS HEMODYNAMICALLY STABLE TODAY. TODAY, WE PLAN TO REPEAT HER BRAIN CT DUE TO CONTINUED WEAKNESS AND ALTERED MENTAL STATUS. SYMPTOMS ARE LIKELY DUE TO PROGRESSED VASCULAR DEMENTIA RATHER THAN ACUTE CVA. OTHERWISE, WE WILL CONTINUE WITH CURRENT PLAN OF CARE. WE WILL FOLLOW UP WITH AM LABS AND CONTINUE TO MONITOR PATIENT. - Past Medical Family Social History Past Med/Fam/Surg Hx: No changes since H&P Allergies: Allergies amoxicillin Allergy (Verified 07/12/17 11:49) Penicillins Allergy (Verified 07/12/17 11:49) - Review of Systems ROS: No change since H&P - Vital Signs and I&O's Vital Signs: Temperature 97.7 F Pulse Rate [Apical] 72 Pulse Rate 70 Respiratory Rate 30 Blood Pressure [Left Arm] 135/60 Blood Pressure [Right Calf] 164/73 Blood Pressure [Right Arm] 160/68 Blood Pressure 132/62 O2 Sat by Pulse Oximetry 98 Intake and Output: Intake & Output 01/24/18 01/25/18 01/26/18 01/27/18 11:59 11:59 11:59 11:59 Intake Total 2375 / 2375 1400 / 1400 640 / 640 490 / 490 Output Total 2475 / 2475 Balance -100 / -100 1399 / 1399 640 / 640 490 / 490 - Physical Exam Oriented: Not Oriented Eyes: Normal Ear: Normal Nose: Normal Throat: Normal Respiratory: Diminished Cardiovascular: Normal : Normal Auscultation: Bowel Sounds: Normal Palpation: Normal Tenderness: Normal Skin: Normal Musculoskeletal: Instability Psychiatric: Agitation Mood Description: Calm Affect: Flat Speech Pattern: Clear, Inappropriate - Laboratory and Diagnostics Result Diagrams: 01/27/18 05:30 01/27/18 05:30 Labs: 01/23/18 10:13 Urine,Clean Catch Urine Culture - Final Laboratory WBC 8.7 X10^3/uL (3.6-10.0) 01/27/18 05:30 RBC 4.39 X10^6/uL (3.5-5.4) 01/27/18 05:30 Hgb 14.6 g/dL (12.0-16.0) 01/27/18 05:30 Hct 41.0 % (36.0-47.0) 01/27/18 05:30 MCV 93.5 fL (80.0-100.0) 01/27/18 05:30 MCH 33.3 pg (27.0-34.0) 01/27/18 05:30 MCHC 35.6 g/dL (33.0-35.0) H 01/27/18 05:30 RDW 13.9 % (11.6-16.5) 01/27/18 05:30 Plt Count 363 X10^3/uL (150.0-450.0) 01/27/18 05:30 MPV 6.5 fL (7.4-11.0) L 01/27/18 05:30 Neut % (Auto) 61.2 % (42.0-75.0) 01/27/18 05:30 Lymph % (Auto) 19.7 % (21.0-51.0) L 01/27/18 05:30 [place] % (Auto) 10.7 % (0.0-13.0) 01/27/18 05:30 Eos % (Auto) 7.4 % (0.9-2.9) H 01/27/18 05:30 Baso % (Auto) 1.0 % (0.2-1.0) 01/27/18 05:30 Neut # (Auto) 5.3 x10^3/uL (2.2-4.8) H 01/27/18 05:30 Lymph # (Auto) 1.7 X10^3/uL (1.3-2.9) 01/27/18 05:30 [place] # (Auto) 0.9 x10^3/uL (0.3-0.8) H 01/27/18 05:30 Eos # (Auto) 0.6 x10^3/uL (0.0-0.2) H 01/27/18 05:30 Baso # (Auto) 0.1 X10^3/uL (0.0-0.1) 01/27/18 05:30 Absolute Nucleated RBC 0.0 /100WBC 01/27/18 05:30 INR Target Range - 01/22/18 21:05 INR 1.03 (0.8-1.3) 01/22/18 21:05 APTT 28.1 SECONDS (22.9-36.5) 01/22/18 21:05 PTT Comment - 01/22/18 21:05 D-Dimer 1310 ng/mL (0-400) H* 01/22/18 21:05 Sodium 133 mmol/L (136-145) L 01/27/18 05:30 Corrected Sodium TNP 01/27/18 05:30 Potassium 4.1 mmol/L (3.5-5.1) 01/27/18 05:30 Chloride 100 mmol/L (98-107) 01/27/18 05:30 Carbon Dioxide 21.7 mmol/L (21-32) 01/27/18 05:30 BUN 13 mg/dL (7-18) 01/27/18 05:30 Creatinine 0.68 mg/dL (0.55-1.02) 01/27/18 05:30 Est GFR (MDRD) Af Amer > 60 (>60) 01/27/18 05:30 Est GFR (MDRD) Non-Af > 60 (>60) 01/27/18 05:30 Glucose 82 mg/dL (65-99) 01/27/18 05:30 Calcium 10.3 mg/dL (8.5-10.1) H 01/27/18 05:30 Corrected Calcium TNP 01/27/18 05:30 Magnesium 1.7 mg/dL (1.7-2.9) 01/23/18 05:57 Total Bilirubin 0.70 mg/dL (0.2-1.0) 01/27/18 05:30 AST 19 Units/L (15-37) 01/27/18 05:30 ALT 19 Units/L (12-78) 01/27/18 05:30 Alkaline Phosphatase 82 Units/L (46-116) 01/27/18 05:30 Creatine Kinase 78 Units/L (26-192) 01/22/18 21:05 CK-MB (CK-2) 1.3 ng/mL (0-4.0) 01/22/18 21:05 CK/CKMB % Calc 1.7 % (<4) 01/22/18 21:05 Troponin I 0.05 ng/mL (0-1.5) 01/22/18 21:05 Total Protein 7.4 g/dL (6.4-8.2) 01/27/18 05:30 Albumin 3.6 g/dL (3.4-5.0) 01/27/18 05:30 Globulin 3.8 g/dL (2.5-4.5) 01/27/18 05:30 Albumin/Globulin Ratio 0.9 Ratio (1.1-2.1) L 01/27/18 05:30 Specimen Type Catherized urine 01/23/18 10:13 Urine Color Yellow (YELLOW) 01/23/18 10:13 Urine Appearance Clear (CLEAR) 01/23/18 10:13 Urine pH 7.0 (5.0 - 8.0) 01/23/18 10:13 Ur Specific [place] 1.010 (1.000-1.030) 01/23/18 10:13 Urine Protein Negative (NEGATIVE) 01/23/18 10:13 Urine Glucose (UA) Negative (NEGATIVE) 01/23/18 10:13 Urine Ketones Negative (NEGATIVE) 01/23/18 10:13 Urine Occult Blood Negative (NEGATIVE) 01/23/18 10:13 Urine Nitrite Negative (NEGATIVE) 01/23/18 10:13 Urine Bilirubin Negative (NEGATIVE) 01/23/18 10:13 Urine Urobilinogen Normal (NORMAL) 01/23/18 10:13 Ur Leukocyte Esterase Negative (NEGATIVE) 01/23/18 10:13 - Plan (1) Altered mental status Status: Acute Qualifiers: Altered mental status type: transient alteration of awareness Qualified Code(s): R40.4 - Transient alteration of awareness Plan: REPEAT BRAIN CT, ZYPREXA 2.5MG PO BID, XANAX 0.25MG PO BID, HALDOL IM, ATIVAN, CONTINUE TO MONITOR (2) Syncope and collapse Status: Acute (3) Vascular dementia Status: Acute (4) Weakness generalized Status: Acute (5) History of CVA (cerebrovascular accident) Status: Chronic
[2018-01-27] MEDS: MILK OF MAGNESIA PO SCH (08:43)
--- NOTE | 2018-01-27 09:46 | PCM.PROG ---
Progress Note - Progress Note for Day of Date: 01/27/18 - Subjective Subjective: WAS ADMITTED FOR ALTERED MENTAL STATUS AND HYPOKALEMIA. TODAY, SHE IS LYING IN BED ON MORNING ROUNDS. SHE IS DIFFICULT TO AROUSE THIS MORNING. STAFF REPORTS THAT PATIENT WAS VERY AGITATED, SCRATCHING HERSELF, PULLING HER HAIR AND YELLING OUT YESTERDAY AFTERNOON. ON EXAMINATION, HEART IS REGULAR IN RATE AND RHYTHM. BILATERAL LUNGS CONTINUE WITH DIMINISHED LUNG SOUNDS THROGHOUT. ABDOMEN IS ROUND, SOFT, AND NON-TENDER WITH NORMAL BOWEL SOUNDS NOTED IN ALL QUADRANTS. HER VITALS THIS MORNING ARE 97.7-72-20-98%-135/ 60. LABS WERE OBTAINED. SHE IS HEMODYNAMICALLY STABLE TODAY. WE WILL HOLD THE HALDOL, ZYPREXA, AND ATIVAN TODAY. TODAY, WE WILL CONSULT WITH THE BEHAVIORAL UNIT IN [facility] FOR POSSIBLE TRANSFER FOR FURTHER EVALUATION AND TREATMENT. PATIENT DOES HAVE A HISTORY OF CVA FOR WHICH COILS WERE PLACED. SHE WOULD BENEFIT FROM A BRAIN MRI TO RULE OUT ACUTE PROCESS. OTHERWISE, WE WILL CONTINUE WITH CURRENT PLAN OF CARE. WE WILL FOLLOW UP WITH AM LABS AND CONTINUE TO MONITOR PATIENT. - Past Medical Family Social History Past Med/Fam/Surg Hx: No changes since H&P Allergies: Allergies amoxicillin Allergy (Verified 07/12/17 11:49) Penicillins Allergy (Verified 07/12/17 11:49) - Review of Systems ROS: No change since H&P - Vital Signs and I&O's Vital Signs: Temperature 97.7 F Pulse Rate [Apical] 72 Pulse Rate 70 Respiratory Rate 30 Blood Pressure [Left Arm] 135/60 Blood Pressure [Right Calf] 164/73 Blood Pressure [Right Arm] 160/68 Blood Pressure 132/62 O2 Sat by Pulse Oximetry 98 Intake and Output: Intake & Output 01/24/18 01/25/18 01/26/18 01/27/18 11:59 11:59 11:59 11:59 Intake Total 2375 / 2375 1400 / 1400 640 / 640 490 / 490 Output Total 2475 / 2475 Balance -100 / -100 1399 / 1399 640 / 640 490 / 490 - Physical Exam Oriented: Not Oriented Eyes: Normal Ear: Normal Nose: Normal Throat: Normal Respiratory: Diminished Cardiovascular: Normal : Normal Auscultation: Bowel Sounds: Normal Palpation: Normal Tenderness: Normal Skin: Normal Musculoskeletal: Instability Psychiatric: Agitation Mood Description: Calm Affect: Flat Speech Pattern: Clear, Inappropriate - Laboratory and Diagnostics Result Diagrams: 01/28/18 05:26 01/28/18 05:26 Labs: 01/23/18 10:13 Urine,Clean Catch Urine Culture - Final Laboratory WBC 8.7 X10^3/uL (3.6-10.0) 01/27/18 05:30 RBC 4.39 X10^6/uL (3.5-5.4) 01/27/18 05:30 Hgb 14.6 g/dL (12.0-16.0) 01/27/18 05:30 Hct 41.0 % (36.0-47.0) 01/27/18 05:30 MCV 93.5 fL (80.0-100.0) 01/27/18 05:30 MCH 33.3 pg (27.0-34.0) 01/27/18 05:30 MCHC 35.6 g/dL (33.0-35.0) H 01/27/18 05:30 RDW 13.9 % (11.6-16.5) 01/27/18 05:30 Plt Count 363 X10^3/uL (150.0-450.0) 01/27/18 05:30 MPV 6.5 fL (7.4-11.0) L 01/27/18 05:30 Neut % (Auto) 61.2 % (42.0-75.0) 01/27/18 05:30 Lymph % (Auto) 19.7 % (21.0-51.0) L 01/27/18 05:30 [place] % (Auto) 10.7 % (0.0-13.0) 01/27/18 05:30 Eos % (Auto) 7.4 % (0.9-2.9) H 01/27/18 05:30 Baso % (Auto) 1.0 % (0.2-1.0) 01/27/18 05:30 Neut # (Auto) 5.3 x10^3/uL (2.2-4.8) H 01/27/18 05:30 Lymph # (Auto) 1.7 X10^3/uL (1.3-2.9) 01/27/18 05:30 [place] # (Auto) 0.9 x10^3/uL (0.3-0.8) H 01/27/18 05:30 Eos # (Auto) 0.6 x10^3/uL (0.0-0.2) H 01/27/18 05:30 Baso # (Auto) 0.1 X10^3/uL (0.0-0.1) 01/27/18 05:30 Absolute Nucleated RBC 0.0 /100WBC 01/27/18 05:30 INR Target Range - 01/22/18 21:05 INR 1.03 (0.8-1.3) 01/22/18 21:05 APTT 28.1 SECONDS (22.9-36.5) 01/22/18 21:05 PTT Comment - 01/22/18 21:05 D-Dimer 1310 ng/mL (0-400) H* 01/22/18 21:05 Sodium 133 mmol/L (136-145) L 01/27/18 05:30 Corrected Sodium TNP 01/27/18 05:30 Potassium 4.1 mmol/L (3.5-5.1) 01/27/18 05:30 Chloride 100 mmol/L (98-107) 01/27/18 05:30 Carbon Dioxide 21.7 mmol/L (21-32) 01/27/18 05:30 BUN 13 mg/dL (7-18) 01/27/18 05:30 Creatinine 0.68 mg/dL (0.55-1.02) 01/27/18 05:30 Est GFR (MDRD) Af Amer > 60 (>60) 01/27/18 05:30 Est GFR (MDRD) Non-Af > 60 (>60) 01/27/18 05:30 Glucose 82 mg/dL (65-99) 01/27/18 05:30 Calcium 10.3 mg/dL (8.5-10.1) H 01/27/18 05:30 Corrected Calcium TNP 01/27/18 05:30 Magnesium 1.7 mg/dL (1.7-2.9) 01/23/18 05:57 Total Bilirubin 0.70 mg/dL (0.2-1.0) 01/27/18 05:30 AST 19 Units/L (15-37) 01/27/18 05:30 ALT 19 Units/L (12-78) 01/27/18 05:30 Alkaline Phosphatase 82 Units/L (46-116) 01/27/18 05:30 Creatine Kinase 78 Units/L (26-192) 01/22/18 21:05 CK-MB (CK-2) 1.3 ng/mL (0-4.0) 01/22/18 21:05 CK/CKMB % Calc 1.7 % (<4) 01/22/18 21:05 Troponin I 0.05 ng/mL (0-1.5) 01/22/18 21:05 Total Protein 7.4 g/dL (6.4-8.2) 01/27/18 05:30 Albumin 3.6 g/dL (3.4-5.0) 01/27/18 05:30 Globulin 3.8 g/dL (2.5-4.5) 01/27/18 05:30 Albumin/Globulin Ratio 0.9 Ratio (1.1-2.1) L 01/27/18 05:30 Specimen Type Catherized urine 01/23/18 10:13 Urine Color Yellow (YELLOW) 01/23/18 10:13 Urine Appearance Clear (CLEAR) 01/23/18 10:13 Urine pH 7.0 (5.0 - 8.0) 01/23/18 10:13 Ur Specific [place] 1.010 (1.000-1.030) 01/23/18 10:13 Urine Protein Negative (NEGATIVE) 01/23/18 10:13 Urine Glucose (UA) Negative (NEGATIVE) 01/23/18 10:13 Urine Ketones Negative (NEGATIVE) 01/23/18 10:13 Urine Occult Blood Negative (NEGATIVE) 01/23/18 10:13 Urine Nitrite Negative (NEGATIVE) 01/23/18 10:13 Urine Bilirubin Negative (NEGATIVE) 01/23/18 10:13 Urine Urobilinogen Normal (NORMAL) 01/23/18 10:13 Ur Leukocyte Esterase Negative (NEGATIVE) 01/23/18 10:13 - Plan (1) Altered mental status Status: Acute Qualifiers: Altered mental status type: transient alteration of awareness Qualified Code(s): R40.4 - Transient alteration of awareness Plan: REPEAT BRAIN CT, ZYPREXA 2.5MG PO BID, XANAX 0.25MG PO BID, HALDOL IM, ATIVAN, CONTINUE TO MONITOR (2) Syncope and collapse Status: Acute (3) Vascular dementia Status: Acute Qualifiers: Dementia behavioral disturbance: with behavioral disturbance Qualified Code (s): F01.51 - Vascular dementia with behavioral disturbance (4) Weakness generalized Status: Acute (5) History of CVA (cerebrovascular accident) Status: Chronic
[2018-01-27] MEDS: VITAMIN B-12 PO SCH (10:03)
[2018-01-27] MEDS: CLARITIN PO SCH (10:03)
[2018-01-27] MEDS: XANAX PO PRN ×2 (14:51→20:47)
[2018-01-27] MEDS: LIPITOR TAB 20 MG PO SCH (20:47)
[2018-01-28 06:40] LABS: BASOPHILS # (AUTO) 0.1 X10^3/uL (0.0-0.1); BASOPHILS % (AUTO) 1.5 % (0.2-1.0); EOSINOPHILS # (AUTO) 0.5 x10^3/uL (0.0-0.2); EOSINOPHILS % (AUTO) 6.3 % (0.9-2.9); LYMPHOCYTES # (AUTO) 1.9 X10^3/uL (1.3-2.9); LYMPHOCYTES % (AUTO) 21.9 % (21.0-51.0); MEAN CORPUSCULAR HEMOGLOBIN 33.4 pg (27.0-34.0); MEAN CORPUSCULAR HGB CONC 35.7 g/dL (33.0-35.0); MEAN CORPUSCULAR VOLUME 93.3 fL (80.0-100.0); MEAN PLATELET VOLUME 7.1 fL (7.4-11.0); MONOCYTES # (AUTO) 1.1 x10^3/uL (0.3-0.8); MONOCYTES % (AUTO) 13.2 % (0.0-13.0); NEUTROPHILS # (AUTO) 4.9 x10^3/uL (2.2-4.8); NEUTROPHILS % (AUTO) 57.1 % (42.0-75.0); PLATELET COUNT 359 X10^3/uL (150.0-450.0); RED BLOOD COUNT 4.18 X10^6/uL (3.5-5.4); WHITE BLOOD COUNT 8.5 X10^3/uL (3.6-10.0)
[2018-01-28 06:48] LABS: ALANINE AMINOTRANSFERASE 21 Units/L (12-78); ALBUMIN 3.5 g/dL (3.4-5.0); ALKALINE PHOSPHATASE 84 Units/L (46-116); ASPARTATE AMINO TRANSFERASE 13 Units/L (15-37); BLOOD UREA NITROGEN 14 mg/dL (7-18); CARBON DIOXIDE 22.9 mmol/L (21-32); CHLORIDE 101 mmol/L (98-107); CREATININE 0.76 mg/dL (0.55-1.02); SODIUM 135 mmol/L (136-145); TOTAL PROTEIN 7.4 g/dL (6.4-8.2); eGFR NON BLACK RACES > 60 (>60)
[2018-01-28] MEDS: MEGACE PO SCH (09:14)
[2018-01-28] MEDS: PROTONIX TAB 40 MG PO SCH (09:14)
[2018-01-28] MEDS: CLARITIN PO SCH (09:14)
[2018-01-28] MEDS: LOPRESSOR TAB 50 MG PO SCH ×2 (09:14→20:37)
[2018-01-28] MEDS: PEPCID TAB 20 MG PO SCH ×2 (09:14→20:37)
[2018-01-28] MEDS: COZAAR PO SCH (09:15)
[2018-01-28] MEDS: ASPIRIN PO SCH (09:15)
[2018-01-28] MEDS: VITAMIN B-12 PO SCH (09:15)
[2018-01-28] MEDS: MILK OF MAGNESIA PO SCH (09:15)
[2018-01-28] MEDS: K-LYTE EFFERVESCENT PO SCH (09:15)
--- NOTE | 2018-01-28 11:57 | PCM.PROG ---
Progress Note - Progress Note for Day of Date: 01/28/18 - Subjective Subjective: WAS ADMITTED FOR ALTERED MENTAL STATUS AND HYPOKALEMIA. TODAY, SHE IS LYING IN BED ON MORNING ROUNDS. SHE IS DIFFICULT TO AROUSE THIS MORNING. STAFF REPORTS THAT PATIENT WAS VERY AGITATED, SCRATCHING HERSELF, PULLING HER HAIR AND YELLING OUT YESTERDAY AFTERNOON. ON EXAMINATION, HEART IS REGULAR IN RATE AND RHYTHM. BILATERAL LUNGS CONTINUE WITH DIMINISHED LUNG SOUNDS THROGHOUT. ABDOMEN IS ROUND, SOFT, AND NON-TENDER WITH NORMAL BOWEL SOUNDS NOTED IN ALL QUADRANTS. HER VITALS THIS MORNING ARE 97.7-72-20-98%-135/ 60. LABS WERE OBTAINED. SHE IS HEMODYNAMICALLY STABLE TODAY. WE WILL HOLD THE HALDOL, ZYPREXA, AND ATIVAN TODAY. TODAY, WE WILL CONSULT WITH THE BEHAVIORAL UNIT IN [facility] FOR POSSIBLE TRANSFER FOR FURTHER EVALUATION AND TREATMENT. PATIENT DOES HAVE A HISTORY OF CVA FOR WHICH COILS WERE PLACED. SHE WOULD BENEFIT FROM A BRAIN MRI TO RULE OUT ACUTE PROCESS. OTHERWISE, WE WILL CONTINUE WITH CURRENT PLAN OF CARE. WE WILL FOLLOW UP WITH AM LABS AND CONTINUE TO MONITOR PATIENT. - Past Medical Family Social History Past Med/Fam/Surg Hx: No changes since H&P Allergies: Allergies amoxicillin Allergy (Verified 07/12/17 11:49) Penicillins Allergy (Verified 07/12/17 11:49) - Review of Systems ROS: No change since H&P - Vital Signs and I&O's Vital Signs: Temperature 99.2 F Pulse Rate [Apical] 71 Pulse Rate 70 Respiratory Rate 20 Blood Pressure [Left Arm] 132/60 Blood Pressure [Right Calf] 164/73 Blood Pressure [Right Arm] 160/68 Blood Pressure 132/62 O2 Sat by Pulse Oximetry 98 Intake and Output: Intake & Output 01/25/18 01/26/18 01/27/18 01/28/18 11:59 11:59 11:59 11:59 Intake Total 1400 / 1400 640 / 640 490 / 490 500 / 500 Output Total Balance 1399 / 1399 640 / 640 490 / 490 500 / 500 - Physical Exam Oriented: Not Oriented Eyes: Normal Ear: Normal Nose: Normal Throat: Normal Respiratory: Diminished Cardiovascular: Normal : Normal Auscultation: Bowel Sounds: Normal Palpation: Normal Tenderness: Normal Skin: Normal Musculoskeletal: Instability Psychiatric: Agitation Mood Description: Calm Affect: Flat Speech Pattern: Clear, Inappropriate - Laboratory and Diagnostics Result Diagrams: 01/28/18 05:26 01/28/18 05:26 Labs: 01/23/18 10:13 Urine,Clean Catch Urine Culture - Final Laboratory WBC 8.5 X10^3/uL (3.6-10.0) 01/28/18 05:26 RBC 4.18 X10^6/uL (3.5-5.4) 01/28/18 05:26 Hgb 14.0 g/dL (12.0-16.0) 01/28/18 05:26 Hct 39.0 % (36.0-47.0) 01/28/18 05:26 MCV 93.3 fL (80.0-100.0) 01/28/18 05:26 MCH 33.4 pg (27.0-34.0) 01/28/18 05:26 MCHC 35.7 g/dL (33.0-35.0) H 01/28/18 05:26 RDW 14.0 % (11.6-16.5) 01/28/18 05:26 Plt Count 359 X10^3/uL (150.0-450.0) 01/28/18 05:26 MPV 7.1 fL (7.4-11.0) L 01/28/18 05:26 Neut % (Auto) 57.1 % (42.0-75.0) 01/28/18 05:26 Lymph % (Auto) 21.9 % (21.0-51.0) 01/28/18 05:26 [place] % (Auto) 13.2 % (0.0-13.0) H 01/28/18 05:26 Eos % (Auto) 6.3 % (0.9-2.9) H 01/28/18 05:26 Baso % (Auto) 1.5 % (0.2-1.0) H 01/28/18 05:26 Neut # (Auto) 4.9 x10^3/uL (2.2-4.8) H 01/28/18 05:26 Lymph # (Auto) 1.9 X10^3/uL (1.3-2.9) 01/28/18 05:26 [place] # (Auto) 1.1 x10^3/uL (0.3-0.8) H 01/28/18 05:26 Eos # (Auto) 0.5 x10^3/uL (0.0-0.2) H 01/28/18 05:26 Baso # (Auto) 0.1 X10^3/uL (0.0-0.1) 01/28/18 05:26 Absolute Nucleated RBC 0.0 /100WBC 01/28/18 05:26 INR Target Range - 01/22/18 21:05 INR 1.03 (0.8-1.3) 01/22/18 21:05 APTT 28.1 SECONDS (22.9-36.5) 01/22/18 21:05 PTT Comment - 01/22/18 21:05 D-Dimer 1310 ng/mL (0-400) H* 01/22/18 21:05 Sodium 135 mmol/L (136-145) L 01/28/18 05:26 Corrected Sodium TNP 01/28/18 05:26 Potassium 4.1 mmol/L (3.5-5.1) 01/28/18 05:26 Chloride 101 mmol/L (98-107) 01/28/18 05:26 Carbon Dioxide 22.9 mmol/L (21-32) 01/28/18 05:26 BUN 14 mg/dL (7-18) 01/28/18 05:26 Creatinine 0.76 mg/dL (0.55-1.02) 01/28/18 05:26 Est GFR (MDRD) Af Amer > 60 (>60) 01/28/18 05:26 Est GFR (MDRD) Non-Af > 60 (>60) 01/28/18 05:26 Glucose 83 mg/dL (65-99) 01/28/18 05:26 Calcium 10.0 mg/dL (8.5-10.1) 01/28/18 05:26 Corrected Calcium TNP 01/28/18 05:26 Magnesium 1.7 mg/dL (1.7-2.9) 01/23/18 05:57 Total Bilirubin 0.70 mg/dL (0.2-1.0) 01/28/18 05:26 AST 13 Units/L (15-37) L 01/28/18 05:26 ALT 21 Units/L (12-78) 01/28/18 05:26 Alkaline Phosphatase 84 Units/L (46-116) 01/28/18 05:26 Creatine Kinase 78 Units/L (26-192) 01/22/18 21:05 CK-MB (CK-2) 1.3 ng/mL (0-4.0) 01/22/18 21:05 CK/CKMB % Calc 1.7 % (<4) 01/22/18 21:05 Troponin I 0.05 ng/mL (0-1.5) 01/22/18 21:05 Total Protein 7.4 g/dL (6.4-8.2) 01/28/18 05:26 Albumin 3.5 g/dL (3.4-5.0) 01/28/18 05:26 Globulin 3.9 g/dL (2.5-4.5) 01/28/18 05:26 Albumin/Globulin Ratio 0.9 Ratio (1.1-2.1) L 01/28/18 05:26 Specimen Type Catherized urine 01/23/18 10:13 Urine Color Yellow (YELLOW) 01/23/18 10:13 Urine Appearance Clear (CLEAR) 01/23/18 10:13 Urine pH 7.0 (5.0 - 8.0) 01/23/18 10:13 Ur Specific [place] 1.010 (1.000-1.030) 01/23/18 10:13 Urine Protein Negative (NEGATIVE) 01/23/18 10:13 Urine Glucose (UA) Negative (NEGATIVE) 01/23/18 10:13 Urine Ketones Negative (NEGATIVE) 01/23/18 10:13 Urine Occult Blood Negative (NEGATIVE) 01/23/18 10:13 Urine Nitrite Negative (NEGATIVE) 01/23/18 10:13 Urine Bilirubin Negative (NEGATIVE) 01/23/18 10:13 Urine Urobilinogen Normal (NORMAL) 01/23/18 10:13 Ur Leukocyte Esterase Negative (NEGATIVE) 01/23/18 10:13 - Plan (1) Altered mental status Status: Acute Qualifiers: Altered mental status type: transient alteration of awareness Qualified Code(s): R40.4 - Transient alteration of awareness Plan: REPEAT BRAIN CT, ZYPREXA 2.5MG PO BID, XANAX 0.25MG PO BID, HALDOL IM, ATIVAN, CONTINUE TO MONITOR (2) Syncope and collapse Status: Acute (3) Vascular dementia Status: Acute Qualifiers: Dementia behavioral disturbance: with behavioral disturbance Qualified Code (s): F01.51 - Vascular dementia with behavioral disturbance (4) Weakness generalized Status: Acute (5) History of CVA (cerebrovascular accident) Status: Chronic
--- NOTE | 2018-01-28 12:22 | MRI ---
HISTORY: Altered mental status Study: MRI brain without contrast Comparison: CT head 01/22/2018 Technique: Multi planar multi sequence noncontrast imaging and diffusion imaging Findings: The ventricles are upper limits normal in size and normal in shape and location. There is a large are a of abnormal diffusion restriction in the right occipital lobe in the distribution of the right post erior cerebral artery. There is signal dropout on the ADC map in this area. There is abnormal T2 sign al in this area suggestive of edema. These findings are consistent with a recent nonhemorrhagic CVA i n the distribution of the right posterior cerebral artery. There is marked abnormal signal in the per iventricular and subcortical white matter consistent with diffuse small vessel vascular disease. Ther e is evidence for an old left MCA infarct. There is no definite evidence for hemorrhage, mass lesion, or extra-axial fluid collection. CP angles are clear. Sinuses are clear. No definite vascular abnorm ality or anomaly is identified. IMPRESSION: Findings consistent with a large recent nonhemorrhagic CVA involving the distribution of the right po sterior cerebral artery Large old CVA involving the distribution of the left MCA Relatively severe diffuse small vessel vascular disease Reported By:
[2018-01-28] MEDS: XANAX PO PRN (12:30)
[2018-01-28] MEDS: PLAVIX PO SCH (14:00)
[2018-01-28] MEDS: CATAPRES-TTS-1 TD SCH (14:15)
[2018-01-28] MEDS: HALDOL INJ IM PRN (17:15)
[2018-01-28] MEDS: LIPITOR TAB 20 MG PO SCH (20:37)
[2018-01-29 06:46] LABS: BASOPHILS # (AUTO) 0.1 X10^3/uL (0.0-0.1); BASOPHILS % (AUTO) 1.3 % (0.2-1.0); EOSINOPHILS # (AUTO) 0.7 x10^3/uL (0.0-0.2); EOSINOPHILS % (AUTO) 7.5 % (0.9-2.9); HEMATOCRIT 40.2 % (36.0-47.0); HEMOGLOBIN 14.2 g/dL (12.0-16.0); LYMPHOCYTES # (AUTO) 2.4 X10^3/uL (1.3-2.9); LYMPHOCYTES % (AUTO) 24.4 % (21.0-51.0); MEAN CORPUSCULAR HEMOGLOBIN 33.1 pg (27.0-34.0); MEAN CORPUSCULAR HGB CONC 35.2 g/dL (33.0-35.0); MEAN PLATELET VOLUME 7.2 fL (7.4-11.0); MONOCYTES # (AUTO) 1.5 x10^3/uL (0.3-0.8); MONOCYTES % (AUTO) 15.3 % (0.0-13.0); NEUTROPHILS % (AUTO) 51.5 % (42.0-75.0); PLATELET COUNT 339 X10^3/uL (150.0-450.0); RED BLOOD COUNT 4.28 X10^6/uL (3.5-5.4); RED CELL DISTRIBUTION WIDTH 13.9 % (11.6-16.5); WHITE BLOOD COUNT 9.7 X10^3/uL (3.6-10.0)
[2018-01-29 07:12] LABS: ALANINE AMINOTRANSFERASE 18 Units/L (12-78); ALBUMIN 3.3 g/dL (3.4-5.0); ALKALINE PHOSPHATASE 83 Units/L (46-116); ASPARTATE AMINO TRANSFERASE 19 Units/L (15-37); BLOOD UREA NITROGEN 12 mg/dL (7-18); CALCIUM 9.7 mg/dL (8.5-10.1); CARBON DIOXIDE 22.4 mmol/L (21-32); CHLORIDE 101 mmol/L (98-107); COR CA(FOR HYPOALB) 10.3 mg/dL (8.5-10.1); CREATININE 0.73 mg/dL (0.55-1.02); SODIUM 134 mmol/L (136-145); TOTAL PROTEIN 7.1 g/dL (6.4-8.2); eGFR NON BLACK RACES > 60 (>60)
[2018-01-29] MEDS: ASPIRIN PO SCH (08:34)
[2018-01-29] MEDS: K-LYTE EFFERVESCENT PO SCH (08:35)
[2018-01-29] MEDS: CLARITIN PO SCH (08:35)
[2018-01-29] MEDS: COZAAR PO SCH (08:35)
[2018-01-29] MEDS: LOPRESSOR TAB 50 MG PO SCH ×2 (08:36→20:26)
[2018-01-29] MEDS: PEPCID TAB 20 MG PO SCH ×2 (08:36→20:25)
[2018-01-29] MEDS: MILK OF MAGNESIA PO SCH (08:36)
[2018-01-29] MEDS: MEGACE PO SCH (08:36)
[2018-01-29] MEDS: PLAVIX PO SCH (08:37)
[2018-01-29] MEDS: PROTONIX TAB 40 MG PO SCH (08:37)
[2018-01-29] MEDS: VITAMIN B-12 PO SCH (08:37)
[2018-01-29] MEDS ORDERED: TYLENOL 325 MG TAB PO PRN (11:06)
[2018-01-29] MEDS: XANAX PO PRN ×2 (12:32→20:25)
[2018-01-29] MEDS: HALDOL INJ IM PRN (15:13)
[2018-01-29] MEDS: LIPITOR TAB 20 MG PO SCH (20:26)
[2018-01-30 06:24] LABS: BASOPHILS # (AUTO) 0.1 X10^3/uL (0.0-0.1); BASOPHILS % (AUTO) 1.6 % (0.2-1.0); EOSINOPHILS # (AUTO) 0.6 x10^3/uL (0.0-0.2); EOSINOPHILS % (AUTO) 7.5 % (0.9-2.9); HEMATOCRIT 36.7 % (36.0-47.0); LYMPHOCYTES # (AUTO) 1.7 X10^3/uL (1.3-2.9); LYMPHOCYTES % (AUTO) 22.2 % (21.0-51.0); MEAN CORPUSCULAR HEMOGLOBIN 33.5 pg (27.0-34.0); MEAN CORPUSCULAR HGB CONC 35.4 g/dL (33.0-35.0); MEAN CORPUSCULAR VOLUME 94.6 fL (80.0-100.0); MEAN PLATELET VOLUME 6.9 fL (7.4-11.0); MONOCYTES % (AUTO) 13.2 % (0.0-13.0); NEUTROPHILS # (AUTO) 4.2 x10^3/uL (2.2-4.8); NEUTROPHILS % (AUTO) 55.5 % (42.0-75.0); PLATELET COUNT 362 X10^3/uL (150.0-450.0); RED BLOOD COUNT 3.88 X10^6/uL (3.5-5.4); RED CELL DISTRIBUTION WIDTH 13.8 % (11.6-16.5); WHITE BLOOD COUNT 7.6 X10^3/uL (3.6-10.0)
[2018-01-30 06:33] LABS: BLOOD UREA NITROGEN 16 mg/dL (7-18); CALCIUM 10.2 mg/dL (8.5-10.1); CHLORIDE 101 mmol/L (98-107); CREATININE 0.88 mg/dL (0.55-1.02); SODIUM 134 mmol/L (136-145); eGFR NON BLACK RACES > 60 (>60)
[2018-01-30] MEDS: ASPIRIN PO SCH (08:39)
[2018-01-30] MEDS: CLARITIN PO SCH (08:40)
[2018-01-30] MEDS: COZAAR PO SCH (08:41)
[2018-01-30] MEDS: LOPRESSOR TAB 50 MG PO SCH ×2 (08:41→20:58)
[2018-01-30] MEDS: MEGACE PO SCH (08:42)
[2018-01-30] MEDS: MILK OF MAGNESIA PO SCH (08:49)
[2018-01-30] MEDS: PLAVIX PO SCH (08:50)
[2018-01-30] MEDS: PEPCID TAB 20 MG PO SCH ×2 (08:50→20:58)
[2018-01-30] MEDS: PROTONIX TAB 40 MG PO SCH (08:51)
[2018-01-30] MEDS: VITAMIN B-12 PO SCH (08:51)
[2018-01-30] MEDS: K-LYTE EFFERVESCENT PO SCH (08:53)
[2018-01-30] MEDS: XANAX PO PRN ×2 (13:06→20:59)
[2018-01-30] MEDS: HALDOL INJ IM PRN (15:14)
[2018-01-30 19:37] LABS: BILIRUBIN,URINE NEGATIVE (NEGATIVE); BLOOD/HEMOGLOBIN,URINE 1+ (NEGATIVE); GLUCOSE, URINE NEGATIVE (NEGATIVE); KETONES,URINE NEGATIVE (NEGATIVE); LEUKOCYTE ESTERASE ,URINE 2+ (NEGATIVE); NITRITES,URINE POSITIVE (NEGATIVE); PROTEIN,URINE 2+ (NEGATIVE); UROBILINOGEN,URINE 1+ (NORMAL)
[2018-01-30 19:42] LABS: APPEARANCE,URINE HAZY (CLEAR); COLOR,URINE YELLOW (YELLOW)
[2018-01-30 19:56] LABS: AMORPHOUS SEDIMENT,UR TRACE /HPF (NEGATIVE); BACTERIA,URINE 4+ /HPF (NEGATIVE); RBC,URINE 0-2 /HPF (NONE SEEN); SQUAMOUS EPITHELIAL CELL,UR RARE /HPF (NEGATIVE)
[2018-01-30] MEDS: LIPITOR TAB 20 MG PO SCH (20:58)
[2018-01-31 05:44] LABS: BASOPHILS # (AUTO) 0.1 X10^3/uL (0.0-0.1); BASOPHILS % (AUTO) 1.5 % (0.2-1.0); EOSINOPHILS # (AUTO) 0.5 x10^3/uL (0.0-0.2); EOSINOPHILS % (AUTO) 6.9 % (0.9-2.9); HEMATOCRIT 36.6 % (36.0-47.0); HEMOGLOBIN 12.8 g/dL (12.0-16.0); LYMPHOCYTES % (AUTO) 28.9 % (21.0-51.0); MEAN CORPUSCULAR HEMOGLOBIN 32.8 pg (27.0-34.0); MEAN CORPUSCULAR HGB CONC 34.8 g/dL (33.0-35.0); MEAN CORPUSCULAR VOLUME 94.3 fL (80.0-100.0); MEAN PLATELET VOLUME 7.3 fL (7.4-11.0); MONOCYTES # (AUTO) 0.9 x10^3/uL (0.3-0.8); MONOCYTES % (AUTO) 13.6 % (0.0-13.0); NEUTROPHILS # (AUTO) 3.4 x10^3/uL (2.2-4.8); NEUTROPHILS % (AUTO) 49.1 % (42.0-75.0); PLATELET COUNT 349 X10^3/uL (150.0-450.0); RED BLOOD COUNT 3.89 X10^6/uL (3.5-5.4); RED CELL DISTRIBUTION WIDTH 13.7 % (11.6-16.5); WHITE BLOOD COUNT 6.9 X10^3/uL (3.6-10.0)
[2018-01-31 05:54] LABS: BLOOD UREA NITROGEN 21 mg/dL (7-18); CALCIUM 10.2 mg/dL (8.5-10.1); CARBON DIOXIDE 24.4 mmol/L (21-32); CHLORIDE 104 mmol/L (98-107); CREATININE 0.89 mg/dL (0.55-1.02); SODIUM 137 mmol/L (136-145); eGFR NON BLACK RACES > 60 (>60)
[2018-01-31] MEDS ORDERED: K-DUR TAB 20 MEQ PO ONE (08:01)
[2018-01-31] MEDS: COZAAR PO SCH (08:28)
[2018-01-31] MEDS: PEPCID TAB 20 MG PO SCH ×2 (08:28→20:07)
[2018-01-31] MEDS: VITAMIN B-12 PO SCH (08:28)
[2018-01-31] MEDS: ASPIRIN PO SCH (08:29)
[2018-01-31] MEDS: MEGACE PO SCH (08:29)
[2018-01-31] MEDS: CLARITIN PO SCH (08:29)
[2018-01-31] MEDS: LOPRESSOR TAB 50 MG PO SCH ×2 (08:30→20:07)
[2018-01-31] MEDS: PLAVIX PO SCH (08:30)
[2018-01-31] MEDS: PROTONIX TAB 40 MG PO SCH (08:30)
[2018-01-31] MEDS: K-LYTE EFFERVESCENT PO SCH (08:31)
[2018-01-31] MEDS: MILK OF MAGNESIA PO SCH (09:24)
[2018-01-31] MEDS: XANAX PO PRN (09:24)
[2018-01-31] MEDS ORDERED: XANAX ONE (11:44)
[2018-01-31 14:15] LABS: ALANINE AMINOTRANSFERASE 34 Units/L (12-78); ALBUMIN 3.2 g/dL (3.4-5.0); ALKALINE PHOSPHATASE 84 Units/L (46-116); ASPARTATE AMINO TRANSFERASE 25 Units/L (15-37); COR CA(FOR HYPOALB) 10.8 mg/dL (8.5-10.1); TOTAL PROTEIN 6.8 g/dL (6.4-8.2)
--- NOTE | 2018-01-31 16:45 | PCM.PROG ---
Progress Note - Progress Note for Day of Date: 01/29/18 - Subjective Subjective: WAS ADMITTED FOR ALTERED MENTAL STATUS AND HYPOKALEMIA. TODAY, SHE IS LYING IN BED ON MORNING ROUNDS. SHE IS ALERT, BUT DISORIENTED. SHE CONTINUES WITH AGITATION AND CONFUSION ACCORDING TO STAFF AND SPOUUSE. ON EXAMINATION, HEART IS REGULAR IN RATE AND RHYTHM. BILATERAL LUNGS CONTINUE WITH DIMINISHED LUNG SOUNDS THROGHOUT. ABDOMEN IS ROUND, SOFT, AND NON-TENDER WITH NORMAL BOWEL SOUNDS NOTED IN ALL QUADRANTS. SHE CONTINUES WITH GENERALIZED WEAKNESS. HER VITALS THIS MORNING ARE 96.9-60-20-96%-141/65. LABS WERE OBTAINED. SHE IS HEMODYNAMICALLY STABLE TODAY. WE WILL HOLD THE HALDOL, ZYPREXA , AND ATIVAN TODAY. [facility] DENIED TRANSFER DUE TO THE INABILITY TO PROVIDE FOR PATIENTS NEEDS. PATIENT DOES HAVE A HISTORY OF CVA FOR WHICH COILS WERE PLACED. WE OBTAINED A BRAIN MRI YESTERDAY. IT REVEALED Findings consistent with a large recent nonhemorrhagic CVA involving the distribution of the right posterior cerebral artery. Large old CVA involving the distribution of the left MCA. Relatively severe diffuse small vessel vascular disease. WE DISCUSSED WITH SPOUSE THE NEED FOR AN EXTENDED PERIOD OF PHYSICAL THERAPY AND REHABILITATION. HE IS IN AGREEMENT WITH PLAN. CASE MANAGEMENT WILL CHECK INTO OUR OPTIONS FOR PLACEMENT. OTHERWISE, WE WILL CONTINUE WITH CURRENT PLAN OF CARE. WE WILL FOLLOW UP WITH AM LABS AND CONTINUE TO MONITOR PATIENT. - Past Medical Family Social History Past Med/Fam/Surg Hx: No changes since H&P Allergies: Allergies amoxicillin Allergy (Verified 07/12/17 11:49) Penicillins Allergy (Verified 07/12/17 11:49) - Review of Systems ROS: No change since H&P - Vital Signs and I&O's Vital Signs: Temperature 98 F Pulse Rate [Apical] 56 Pulse Rate 70 Respiratory Rate 21 Blood Pressure [Left Arm] 138/64 Blood Pressure [Right Calf] 164/73 Blood Pressure [Right Arm] 160/68 Blood Pressure 132/62 O2 Sat by Pulse Oximetry 95 Intake and Output: Intake & Output 01/29/18 01/30/18 01/31/18 02/01/18 11:59 11:59 11:59 11:59 Intake Total 920 / 920 490 / 490 690 / 690 Output Total 0 / 0 800 / 800 Balance 920 / 920 490 / 490 -110 / -110 - Physical Exam Oriented: Not Oriented Eyes: Normal Ear: Normal Nose: Normal Throat: Normal Respiratory: Diminished Cardiovascular: Normal : Normal Auscultation: Bowel Sounds: Normal Palpation: Normal Tenderness: Normal Skin: Normal Musculoskeletal: Instability Psychiatric: Agitation Mood Description: Calm Affect: Flat Speech Pattern: Clear, Inappropriate - Laboratory and Diagnostics Result Diagrams: 01/31/18 04:12 01/31/18 04:12 Labs: 01/30/18 19:27 Urine,Catheterized Urine Culture - Preliminary 01/23/18 10:13 Urine,Clean Catch Urine Culture - Final Laboratory WBC 6.9 X10^3/uL (3.6-10.0) 01/31/18 04:12 RBC 3.89 X10^6/uL (3.5-5.4) 01/31/18 04:12 Hgb 12.8 g/dL (12.0-16.0) 01/31/18 04:12 Hct 36.6 % (36.0-47.0) 01/31/18 04:12 MCV 94.3 fL (80.0-100.0) 01/31/18 04:12 MCH 32.8 pg (27.0-34.0) 01/31/18 04:12 MCHC 34.8 g/dL (33.0-35.0) 01/31/18 04:12 RDW 13.7 % (11.6-16.5) 01/31/18 04:12 Plt Count 349 X10^3/uL (150.0-450.0) 01/31/18 04:12 MPV 7.3 fL (7.4-11.0) L 01/31/18 04:12 Neut % (Auto) 49.1 % (42.0-75.0) 01/31/18 04:12 Lymph % (Auto) 28.9 % (21.0-51.0) 01/31/18 04:12 [place] % (Auto) 13.6 % (0.0-13.0) H 01/31/18 04:12 Eos % (Auto) 6.9 % (0.9-2.9) H 01/31/18 04:12 Baso % (Auto) 1.5 % (0.2-1.0) H 01/31/18 04:12 Neut # (Auto) 3.4 x10^3/uL (2.2-4.8) 01/31/18 04:12 Lymph # (Auto) 2.0 X10^3/uL (1.3-2.9) 01/31/18 04:12 [place] # (Auto) 0.9 x10^3/uL (0.3-0.8) H 01/31/18 04:12 Eos # (Auto) 0.5 x10^3/uL (0.0-0.2) H 01/31/18 04:12 Baso # (Auto) 0.1 X10^3/uL (0.0-0.1) 01/31/18 04:12 Absolute Nucleated RBC 0.0 /100WBC 01/31/18 04:12 INR Target Range - 01/22/18 21:05 INR 1.03 (0.8-1.3) 01/22/18 21:05 APTT 28.1 SECONDS (22.9-36.5) 01/22/18 21:05 PTT Comment - 01/22/18 21:05 D-Dimer 1310 ng/mL (0-400) H* 01/22/18 21:05 Sodium 137 mmol/L (136-145) 01/31/18 04:12 Corrected Sodium TNP 01/31/18 04:12 Potassium 4.0 mmol/L (3.5-5.1) 01/31/18 04:12 Chloride 104 mmol/L (98-107) 01/31/18 04:12 Carbon Dioxide 24.4 mmol/L (21-32) 01/31/18 04:12 BUN 21 mg/dL (7-18) H 01/31/18 04:12 Creatinine 0.89 mg/dL (0.55-1.02) 01/31/18 04:12 Est GFR (MDRD) Af Amer > 60 (>60) 01/31/18 04:12 Est GFR (MDRD) Non-Af > 60 (>60) 01/31/18 04:12 Glucose 79 mg/dL (65-99) 01/31/18 04:12 Calcium 10.2 mg/dL (8.5-10.1) H 01/31/18 04:12 Corrected Calcium 10.8 mg/dL (8.5-10.1) H 01/31/18 04:12 Magnesium 1.7 mg/dL (1.7-2.9) 01/23/18 05:57 Total Bilirubin 0.40 mg/dL (0.2-1.0) 01/31/18 04:12 AST 25 Units/L (15-37) 01/31/18 04:12 ALT 34 Units/L (12-78) 01/31/18 04:12 Alkaline Phosphatase 84 Units/L (46-116) 01/31/18 04:12 Creatine Kinase 78 Units/L (26-192) 01/22/18 21:05 CK-MB (CK-2) 1.3 ng/mL (0-4.0) 01/22/18 21:05 CK/CKMB % Calc 1.7 % (<4) 01/22/18 21:05 Troponin I 0.05 ng/mL (0-1.5) 01/22/18 21:05 Total Protein 6.8 g/dL (6.4-8.2) 01/31/18 04:12 Albumin 3.2 g/dL (3.4-5.0) L 01/31/18 04:12 Globulin 3.6 g/dL (2.5-4.5) 01/31/18 04:12 Albumin/Globulin Ratio 0.9 Ratio (1.1-2.1) L 01/31/18 04:12 Specimen Type Catherized urine 01/30/18 19: Urine Color Yellow (YELLOW) 01/30/18 19: Urine Appearance Hazy (CLEAR) 01/30/18 19: Urine pH 6.0 (5.0 - 8.0) 01/30/18 19: Ur Specific [place] 1.020 (1.000-1.030) 01/30/18 19: Urine Protein 2+ (NEGATIVE) 01/30/18 19: Urine Glucose (UA) Negative (NEGATIVE) 01/30/18 19: Urine Ketones Negative (NEGATIVE) 01/30/18 19: Urine Occult Blood 1+ (NEGATIVE) 01/30/18 19: Urine Nitrite Positive (NEGATIVE) 01/30/18 19: Urine Bilirubin Negative (NEGATIVE) 01/30/18 19: Urine Urobilinogen 1+ (NORMAL) 01/30/18 19:27 Ur Leukocyte Esterase 2+ (NEGATIVE) 01/30/18 19:27 Urine RBC 0-2 /HPF (NONE SEEN) 01/30/18 19:27 Urine WBC 3-5 /HPF (NONE SEEN) 01/30/18 19:27 Ur Squamous Epith Cells Rare /HPF (NEGATIVE) 01/30/18 19:27 Amorphous Sediment Trace /HPF (NEGATIVE) 01/30/18 19:27 Urine Bacteria 4+ /HPF (NEGATIVE) 01/30/18 19:27 Ur Culture Indicated? Yes/culture set up 01/30/18 19:27 - Plan (1) Acute cerebrovascular accident (CVA) Status: Acute Plan: CONTINUE ASPIRIN, LIPITOR 20MG PO HS, CONTINUE PLAVIX, CONTINUE TO MONITOR (2) Altered mental status Status: Acute Qualifiers: Altered mental status type: transient alteration of awareness Qualified Code(s): R40.4 - Transient alteration of awareness Plan: REPEAT BRAIN CT, ZYPREXA 2.5MG PO BID, XANAX 0.25MG PO BID, HALDOL IM, ATIVAN, CONTINUE TO MONITOR (3) Syncope and collapse Status: Acute (4) Vascular dementia Status: Acute Qualifiers: Dementia behavioral disturbance: with behavioral disturbance Qualified Code (s): F01.51 - Vascular dementia with behavioral disturbance (5) Weakness generalized Status: Acute (6) History of CVA (cerebrovascular accident) Status: Chronic
--- NOTE | 2018-01-31 16:49 | PCM.PROG ---
Progress Note - Progress Note for Day of Date: 01/30/18 - Subjective Subjective: WAS ADMITTED FOR ALTERED MENTAL STATUS AND HYPOKALEMIA. BRAIN MRI REVEALED A NEW CVA. TODAY, SHE IS LYING IN BED WITH EYES CLOSED ON MORNING ROUNDS. SPOUSE AND STAFF REPORT THAT SHE CONTINUES WITH DISORIENTATION AND AGITATION. SHE IS AMBULATING IN ROOM TO THE BEDSIDE COMMODE WITH MODERATE ASSITANCE. ON EXAMINATION, HEART IS REGULAR IN RATE AND RHYTHM. BILATERAL LUNGS CONTINUE WITH DIMINISHED LUNG SOUNDS THROGHOUT. ABDOMEN IS ROUND, SOFT, AND NON- TENDER WITH NORMAL BOWEL SOUNDS NOTED IN ALL QUADRANTS. SHE CONTINUES WITH GENERALIZED WEAKNESS. HER VITALS THIS MORNING ARE 98.2-54-20-97%-134/57. LABS WERE OBTAINED. SHE IS HEMODYNAMICALLY STABLE TODAY. CASE MANAGEMENT IS CHECKING INTO OUR OPTIONS FOR PLACEMENT. OTHERWISE, WE WILL CONTINUE WITH CURRENT PLAN OF CARE TODAY. WE WILL FOLLOW UP WITH AM LABS AND CONTINUE TO MONITOR PATIENT. - Past Medical Family Social History Past Med/Fam/Surg Hx: No changes since H&P Allergies: Allergies amoxicillin Allergy (Verified 07/12/17 11:49) Penicillins Allergy (Verified 07/12/17 11:49) - Review of Systems ROS: No change since H&P - Vital Signs and I&O's Vital Signs: Temperature 98 F Pulse Rate [Apical] 56 Pulse Rate 70 Respiratory Rate 21 Blood Pressure [Left Arm] 138/64 Blood Pressure [Right Calf] 164/73 Blood Pressure [Right Arm] 160/68 Blood Pressure 132/62 O2 Sat by Pulse Oximetry 95 Intake and Output: Intake & Output 01/29/18 01/30/18 01/31/18 02/01/18 11:59 11:59 11:59 11:59 Intake Total 920 / 920 490 / 490 690 / 690 Output Total 0 / 0 800 / 800 Balance 920 / 920 490 / 490 -110 / -110 - Physical Exam Oriented: Not Oriented Eyes: Normal Ear: Normal Nose: Normal Throat: Normal Respiratory: Diminished Cardiovascular: Normal : Normal Auscultation: Bowel Sounds: Normal Tenderness: Normal Skin: Normal Musculoskeletal: Instability Psychiatric: Agitation Mood Description: Calm Affect: Flat Speech Pattern: Clear, Inappropriate - Laboratory and Diagnostics Result Diagrams: 01/31/18 04:12 01/31/18 04:12 Labs: 01/30/18 19:27 Urine,Catheterized Urine Culture - Preliminary 01/23/18 10:13 Urine,Clean Catch Urine Culture - Final Laboratory WBC 6.9 X10^3/uL (3.6-10.0) 01/31/18 04:12 RBC 3.89 X10^6/uL (3.5-5.4) 01/31/18 04:12 Hgb 12.8 g/dL (12.0-16.0) 01/31/18 04:12 Hct 36.6 % (36.0-47.0) 01/31/18 04:12 MCV 94.3 fL (80.0-100.0) 01/31/18 04:12 MCH 32.8 pg (27.0-34.0) 01/31/18 04:12 MCHC 34.8 g/dL (33.0-35.0) 01/31/18 04:12 RDW 13.7 % (11.6-16.5) 01/31/18 04:12 Plt Count 349 X10^3/uL (150.0-450.0) 01/31/18 04:12 MPV 7.3 fL (7.4-11.0) L 01/31/18 04:12 Neut % (Auto) 49.1 % (42.0-75.0) 01/31/18 04:12 Lymph % (Auto) 28.9 % (21.0-51.0) 01/31/18 04:12 [place] % (Auto) 13.6 % (0.0-13.0) H 01/31/18 04:12 Eos % (Auto) 6.9 % (0.9-2.9) H 01/31/18 04:12 Baso % (Auto) 1.5 % (0.2-1.0) H 01/31/18 04:12 Neut # (Auto) 3.4 x10^3/uL (2.2-4.8) 01/31/18 04:12 Lymph # (Auto) 2.0 X10^3/uL (1.3-2.9) 01/31/18 04:12 [place] # (Auto) 0.9 x10^3/uL (0.3-0.8) H 01/31/18 04:12 Eos # (Auto) 0.5 x10^3/uL (0.0-0.2) H 01/31/18 04:12 Baso # (Auto) 0.1 X10^3/uL (0.0-0.1) 01/31/18 04:12 Absolute Nucleated RBC 0.0 /100WBC 01/31/18 04:12 INR Target Range - 01/22/18 21:05 INR 1.03 (0.8-1.3) 01/22/18 21:05 APTT 28.1 SECONDS (22.9-36.5) 01/22/18 21:05 PTT Comment - 01/22/18 21:05 D-Dimer 1310 ng/mL (0-400) H* 01/22/18 21:05 Sodium 137 mmol/L (136-145) 01/31/18 04:12 Corrected Sodium TNP 01/31/18 04:12 Potassium 4.0 mmol/L (3.5-5.1) 01/31/18 04:12 Chloride 104 mmol/L (98-107) 01/31/18 04:12 Carbon Dioxide 24.4 mmol/L (21-32) 01/31/18 04:12 BUN 21 mg/dL (7-18) H 01/31/18 04:12 Creatinine 0.89 mg/dL (0.55-1.02) 01/31/18 04:12 Est GFR (MDRD) Af Amer > 60 (>60) 01/31/18 04:12 Est GFR (MDRD) Non-Af > 60 (>60) 01/31/18 04:12 Glucose 79 mg/dL (65-99) 01/31/18 04:12 Calcium 10.2 mg/dL (8.5-10.1) H 01/31/18 04:12 Corrected Calcium 10.8 mg/dL (8.5-10.1) H 01/31/18 04:12 Magnesium 1.7 mg/dL (1.7-2.9) 01/23/18 05:57 Total Bilirubin 0.40 mg/dL (0.2-1.0) 01/31/18 04:12 AST 25 Units/L (15-37) 01/31/18 04:12 ALT 34 Units/L (12-78) 01/31/18 04:12 Alkaline Phosphatase 84 Units/L (46-116) 01/31/18 04:12 Creatine Kinase 78 Units/L (26-192) 01/22/18 21:05 CK-MB (CK-2) 1.3 ng/mL (0-4.0) 01/22/18 21:05 CK/CKMB % Calc 1.7 % (<4) 01/22/18 21:05 Troponin I 0.05 ng/mL (0-1.5) 01/22/18 21:05 Total Protein 6.8 g/dL (6.4-8.2) 01/31/18 04:12 Albumin 3.2 g/dL (3.4-5.0) L 01/31/18 04:12 Globulin 3.6 g/dL (2.5-4.5) 01/31/18 04:12 Albumin/Globulin Ratio 0.9 Ratio (1.1-2.1) L 01/31/18 04:12 Specimen Type Catherized urine 01/30/18 19: Urine Color Yellow (YELLOW) 01/30/18 19: Urine Appearance Hazy (CLEAR) 01/30/18 19: Urine pH 6.0 (5.0 - 8.0) 01/30/18 19: Ur Specific [place] 1.020 (1.000-1.030) 01/30/18 19: Urine Protein 2+ (NEGATIVE) 01/30/18 19: Urine Glucose (UA) Negative (NEGATIVE) 01/30/18 19: Urine Ketones Negative (NEGATIVE) 01/30/18 19: Urine Occult Blood 1+ (NEGATIVE) 01/30/18 19: Urine Nitrite Positive (NEGATIVE) 01/30/18 19: Urine Bilirubin Negative (NEGATIVE) 01/30/18 19: Urine Urobilinogen 1+ (NORMAL) 01/30/18: Ur Leukocyte Esterase 2+ (NEGATIVE) 01/30/18 19: Urine RBC 0-2 /HPF (NONE SEEN) 01/30/18 19: Urine WBC 3-5 /HPF (NONE SEEN) 01/30/18 19: Ur Squamous Epith Cells Rare /HPF (NEGATIVE) 01/30/18 19: Amorphous Sediment Trace /HPF (NEGATIVE) 01/30/18 19: Urine Bacteria 4+ /HPF (NEGATIVE) 01/30/18 19:27 Ur Culture Indicated? Yes/culture set up 01/30/18 19:27 - Plan (1) Acute cerebrovascular accident (CVA) Status: Acute Plan: CONTINUE ASPIRIN, LIPITOR 20MG PO HS, CONTINUE PLAVIX, CONTINUE TO MONITOR (2) Altered mental status Status: Acute Qualifiers: Altered mental status type: transient alteration of awareness Qualified Code(s): R40.4 - Transient alteration of awareness Plan: REPEAT BRAIN CT, ZYPREXA 2.5MG PO BID, XANAX 0.25MG PO BID, HALDOL IM, ATIVAN, CONTINUE TO MONITOR (3) Syncope and collapse Status: Acute (4) Vascular dementia Status: Acute Qualifiers: Dementia behavioral disturbance: with behavioral disturbance Qualified Code (s): F01.51 - Vascular dementia with behavioral disturbance (5) Weakness generalized Status: Acute (6) History of CVA (cerebrovascular accident) Status: Chronic
[2018-01-31] MEDS: LIPITOR TAB 20 MG PO SCH (20:06)
[2018-02-01 06:14] LABS: BASOPHILS # (AUTO) 0.1 X10^3/uL (0.0-0.1); EOSINOPHILS # (AUTO) 0.3 x10^3/uL (0.0-0.2); EOSINOPHILS % (AUTO) 3.6 % (0.9-2.9); HEMATOCRIT 38.9 % (36.0-47.0); HEMOGLOBIN 13.8 g/dL (12.0-16.0); LYMPHOCYTES # (AUTO) 1.5 X10^3/uL (1.3-2.9); LYMPHOCYTES % (AUTO) 16.8 % (21.0-51.0); MEAN CORPUSCULAR HGB CONC 35.5 g/dL (33.0-35.0); MEAN CORPUSCULAR VOLUME 92.9 fL (80.0-100.0); MEAN PLATELET VOLUME 7.2 fL (7.4-11.0); MONOCYTES # (AUTO) 1.1 x10^3/uL (0.3-0.8); MONOCYTES % (AUTO) 11.8 % (0.0-13.0); NEUTROPHILS # (AUTO) 6.1 x10^3/uL (2.2-4.8); NEUTROPHILS % (AUTO) 66.8 % (42.0-75.0); PLATELET COUNT 357 X10^3/uL (150.0-450.0); RED BLOOD COUNT 4.19 X10^6/uL (3.5-5.4); RED CELL DISTRIBUTION WIDTH 13.7 % (11.6-16.5); WHITE BLOOD COUNT 9.1 X10^3/uL (3.6-10.0)
[2018-02-01 06:30] LABS: ALANINE AMINOTRANSFERASE 32 Units/L (12-78); ALBUMIN 3.4 g/dL (3.4-5.0); ALKALINE PHOSPHATASE 97 Units/L (46-116); ASPARTATE AMINO TRANSFERASE 20 Units/L (15-37); BLOOD UREA NITROGEN 14 mg/dL (7-18); CALCIUM 9.9 mg/dL (8.5-10.1); CARBON DIOXIDE 22.4 mmol/L (21-32); CHLORIDE 102 mmol/L (98-107); CREATININE 0.73 mg/dL (0.55-1.02); SODIUM 135 mmol/L (136-145); TOTAL PROTEIN 7.2 g/dL (6.4-8.2); eGFR NON BLACK RACES > 60 (>60)
[2018-02-01] MEDS ORDERED: K-DUR TAB 20 MEQ PO ONE (07:37)
[2018-02-01] MEDS: XANAX PO PRN (09:40)
[2018-02-01] MEDS: LOPRESSOR TAB 50 MG PO SCH ×2 (10:07→20:33)
[2018-02-01] MEDS: COZAAR PO SCH (10:08)
[2018-02-01] MEDS: PLAVIX PO SCH (10:08)
[2018-02-01] MEDS: MILK OF MAGNESIA PO SCH (10:09)
[2018-02-01] MEDS: VITAMIN B-12 PO SCH (10:09)
[2018-02-01] MEDS: MEGACE PO SCH (10:09)
[2018-02-01] MEDS: CLARITIN PO SCH (10:09)
[2018-02-01] MEDS: ASPIRIN PO SCH (10:09)
[2018-02-01] MEDS: PEPCID TAB 20 MG PO SCH ×2 (10:09→20:33)
[2018-02-01] MEDS: K-LYTE EFFERVESCENT PO SCH (10:09)
[2018-02-01] MEDS: PROTONIX TAB 40 MG PO SCH (10:10)
[2018-02-01] MEDS ORDERED: MACROBID CAP 100 MG EXT REL PO ONE (10:59)
--- NOTE | 2018-02-01 11:12 | PCM.PROG ---
Progress Note - Progress Note for Day of Date: 01/31/18 - Subjective Subjective: WAS ADMITTED FOR ALTERED MENTAL STATUS AND HYPOKALEMIA. BRAIN MRI REVEALED A NEW CVA. TODAY, SHE IS LYING IN BED WITH EYES CLOSED ON MORNING ROUNDS. SPOUSE AND STAFF REPORT THAT SHE CONTINUES WITH DISORIENTATION AND AGITATION. SHE REQUIRES MODERATED ASSISTANCE FOR AMBULATION AND ADLs. ON EXAMINATION, HEART IS REGULAR IN RATE AND RHYTHM. BILATERAL LUNGS CONTINUE WITH DIMINISHED LUNG SOUNDS THROGHOUT. ABDOMEN IS ROUND, SOFT, AND NON-TENDER WITH NORMAL BOWEL SOUNDS NOTED IN ALL QUADRANTS. SHE CONTINUES WITH GENERALIZED WEAKNESS. HER VITALS THIS MORNING ARE 98.9-61-21-93%-159/66. LABS WERE OBTAINED. SHE REMAINS HEMODYNAMICALLY STABLE TODAY. CASE MANAGEMENT IS CHECKING INTO OUR OPTIONS FOR PLACEMENT. OTHERWISE, WE WILL CONTINUE WITH CURRENT PLAN OF CARE TODAY. WE WILL FOLLOW UP WITH AM LABS AND CONTINUE TO MONITOR PATIENT. - Past Medical Family Social History Past Med/Fam/Surg Hx: No changes since H&P Allergies: Allergies amoxicillin Allergy (Verified 07/12/17 11:49) Penicillins Allergy (Verified 07/12/17 11:49) - Review of Systems ROS: No change since H&P - Vital Signs and I&O's Vital Signs: Temperature 97.9 F Pulse Rate [Apical] 57 Pulse Rate 70 Respiratory Rate 22 Blood Pressure [Left Arm] 162/67 Blood Pressure [Right Calf] 164/73 Blood Pressure [Right Arm] 160/68 Blood Pressure 132/62 O2 Sat by Pulse Oximetry 97 Intake and Output: Intake & Output 01/29/18 01/30/18 01/31/18 02/01/18 11:59 11:59 11:59 11:59 Intake Total 920 / 920 490 / 490 690 / 690 661 / 661 Output Total 0 / 0 800 / 800 600 / 600 Balance 920 / 920 490 / 490 -110 / -110 61 / 61 - Physical Exam Oriented: Not Oriented Eyes: Normal Ear: Normal Nose: Normal Throat: Normal Respiratory: Diminished Cardiovascular: Normal : Normal Auscultation: Bowel Sounds: Normal Palpation: Normal Tenderness: Normal Skin: Normal Musculoskeletal: Instability Psychiatric: Agitation Mood Description: Calm Affect: Flat Speech Pattern: Clear, Inappropriate - Laboratory and Diagnostics Result Diagrams: 02/01/18 05:33 02/01/18 05:33 Labs: 01/30/18 19:27 Urine,Catheterized Urine Culture - Final Enterococcus Faecalis 01/23/18 10:13 Urine,Clean Catch Urine Culture - Final Laboratory WBC 9.1 X10^3/uL (3.6-10.0) 02/01/18 05:33 RBC 4.19 X10^6/uL (3.5-5.4) 02/01/18 05:33 Hgb 13.8 g/dL (12.0-16.0) 02/01/18 05:33 Hct 38.9 % (36.0-47.0) 02/01/18 05:33 MCV 92.9 fL (80.0-100.0) 02/01/18 05:33 MCH 33.0 pg (27.0-34.0) 02/01/18 05:33 MCHC 35.5 g/dL (33.0-35.0) H 02/01/18 05:33 RDW 13.7 % (11.6-16.5) 02/01/18 05:33 Plt Count 357 X10^3/uL (150.0-450.0) 02/01/18 05:33 MPV 7.2 fL (7.4-11.0) L 02/01/18 05:33 Neut % (Auto) 66.8 % (42.0-75.0) 02/01/18 05:33 Lymph % (Auto) 16.8 % (21.0-51.0) L 02/01/18 05:33 [place] % (Auto) 11.8 % (0.0-13.0) 02/01/18 05:33 Eos % (Auto) 3.6 % (0.9-2.9) H 02/01/18 05:33 Baso % (Auto) 1.0 % (0.2-1.0) 02/01/18 05:33 Neut # (Auto) 6.1 x10^3/uL (2.2-4.8) H 02/01/18 05:33 Lymph # (Auto) 1.5 X10^3/uL (1.3-2.9) 02/01/18 05:33 [place] # (Auto) 1.1 x10^3/uL (0.3-0.8) H 02/01/18 05:33 Eos # (Auto) 0.3 x10^3/uL (0.0-0.2) H 02/01/18 05:33 Baso # (Auto) 0.1 X10^3/uL (0.0-0.1) 02/01/18 05:33 Absolute Nucleated RBC 0.0 /100WBC 02/01/18 05:33 INR Target Range - 01/22/18 21:05 INR 1.03 (0.8-1.3) 01/22/18 21:05 APTT 28.1 SECONDS (22.9-36.5) 01/22/18 21:05 PTT Comment - 01/22/18 21:05 D-Dimer 1310 ng/mL (0-400) H* 01/22/18 21:05 Sodium 135 mmol/L (136-145) L 02/01/18 05:33 Corrected Sodium TNP 02/01/18 05:33 Potassium 4.0 mmol/L (3.5-5.1) 02/01/18 05:33 Chloride 102 mmol/L (98-107) 02/01/18 05:33 Carbon Dioxide 22.4 mmol/L (21-32) 02/01/18 05:33 BUN 14 mg/dL (7-18) 02/01/18 05:33 Creatinine 0.73 mg/dL (0.55-1.02) 02/01/18 05:33 Est GFR (MDRD) Af Amer > 60 (>60) 02/01/18 05:33 Est GFR (MDRD) Non-Af > 60 (>60) 02/01/18 05:33 Glucose 89 mg/dL (65-99) 02/01/18 05:33 Calcium 9.9 mg/dL (8.5-10.1) 02/01/18 05:33 Corrected Calcium TNP 02/01/18 05:33 Magnesium 1.7 mg/dL (1.7-2.9) 01/23/18 05:57 Total Bilirubin 0.50 mg/dL (0.2-1.0) 02/01/18 05:33 AST 20 Units/L (15-37) 02/01/18 05:33 ALT 32 Units/L (12-78) 02/01/18 05:33 Alkaline Phosphatase 97 Units/L (46-116) 02/01/18 05:33 Creatine Kinase 78 Units/L (26-192) 01/22/18 21:05 CK-MB (CK-2) 1.3 ng/mL (0-4.0) 01/22/18 21:05 CK/CKMB % Calc 1.7 % (<4) 01/22/18 21:05 Troponin I 0.05 ng/mL (0-1.5) 01/22/18 21:05 Total Protein 7.2 g/dL (6.4-8.2) 02/01/18 05:33 Albumin 3.4 g/dL (3.4-5.0) 02/01/18 05:33 Globulin 3.8 g/dL (2.5-4.5) 02/01/18 05:33 Albumin/Globulin Ratio 0.9 Ratio (1.1-2.1) L 02/01/18 05:33 Specimen Type Catherized urine 01/30/18 19:27 Urine Color Yellow (YELLOW) 01/30/18 19: Urine Appearance Hazy (CLEAR) 01/30/18 19:27 Urine pH 6.0 (5.0 - 8.0) 01/30/18 19:27 Ur Specific [place] 1.020 (1.000-1.030) 01/30/18 19:27 Urine Protein 2+ (NEGATIVE) 01/30/18 19: Urine Glucose (UA) Negative (NEGATIVE) 01/30/18 19: Urine Ketones Negative (NEGATIVE) 01/30/18 19: Urine Occult Blood 1+ (NEGATIVE) 01/30/18 19: Urine Nitrite Positive (NEGATIVE) 01/30/18 19: Urine Bilirubin Negative (NEGATIVE) 01/30/18 19: Urine Urobilinogen 1+ (NORMAL) 01/30/18 19: Ur Leukocyte Esterase 2+ (NEGATIVE) 01/30/18 19: Urine RBC 0-2 /HPF (NONE SEEN) 01/30/18 19:27 Urine WBC 3-5 /HPF (NONE SEEN) 01/30/18 19:27 Ur Squamous Epith Cells Rare /HPF (NEGATIVE) 01/30/18 19: Amorphous Sediment Trace /HPF (NEGATIVE) 01/30/18 19: Urine Bacteria 4+ /HPF (NEGATIVE) 01/30/18 19:27 Ur Culture Indicated? Yes/culture set up 01/30/18 19:27 - Plan (1) Acute cerebrovascular accident (CVA) Status: Acute Plan: CONTINUE ASPIRIN, LIPITOR 20MG PO HS, CONTINUE PLAVIX, CONTINUE TO MONITOR (2) Altered mental status Status: Acute Qualifiers: Altered mental status type: transient alteration of awareness Qualified Code(s): R40.4 - Transient alteration of awareness Plan: REPEAT BRAIN CT, ZYPREXA 2.5MG PO BID, XANAX 0.25MG PO BID, HALDOL IM, ATIVAN, CONTINUE TO MONITOR (3) Syncope and collapse Status: Acute (4) Vascular dementia Status: Acute Qualifiers: Dementia behavioral disturbance: with behavioral disturbance Qualified Code (s): F01.51 - Vascular dementia with behavioral disturbance (5) Weakness generalized Status: Acute (6) History of CVA (cerebrovascular accident) Status: Chronic
[2018-02-01] MEDS: MACROBID CAP 100 MG EXT REL PO SCH ×2 (11:50→20:33)
[2018-02-01] MEDS: LIPITOR TAB 20 MG PO SCH (20:32)
[2018-02-02 06:20] LABS: BASOPHILS # (AUTO) 0.1 X10^3/uL (0.0-0.1); BASOPHILS % (AUTO) 1.1 % (0.2-1.0); EOSINOPHILS # (AUTO) 0.2 x10^3/uL (0.0-0.2); EOSINOPHILS % (AUTO) 2.6 % (0.9-2.9); HEMATOCRIT 36.4 % (36.0-47.0); HEMOGLOBIN 12.9 g/dL (12.0-16.0); LYMPHOCYTES # (AUTO) 1.5 X10^3/uL (1.3-2.9); LYMPHOCYTES % (AUTO) 21.8 % (21.0-51.0); MEAN CORPUSCULAR HGB CONC 35.3 g/dL (33.0-35.0); MEAN CORPUSCULAR VOLUME 93.5 fL (80.0-100.0); MEAN PLATELET VOLUME 7.4 fL (7.4-11.0); MONOCYTES # (AUTO) 0.7 x10^3/uL (0.3-0.8); MONOCYTES % (AUTO) 10.8 % (0.0-13.0); NEUTROPHILS # (AUTO) 4.4 x10^3/uL (2.2-4.8); NEUTROPHILS % (AUTO) 63.7 % (42.0-75.0); PLATELET COUNT 337 X10^3/uL (150.0-450.0); RED BLOOD COUNT 3.89 X10^6/uL (3.5-5.4); RED CELL DISTRIBUTION WIDTH 13.5 % (11.6-16.5); WHITE BLOOD COUNT 6.9 X10^3/uL (3.6-10.0)
[2018-02-02 06:24] LABS: ALANINE AMINOTRANSFERASE 32 Units/L (12-78); ALBUMIN 3.2 g/dL (3.4-5.0); ALKALINE PHOSPHATASE 93 Units/L (46-116); ASPARTATE AMINO TRANSFERASE 22 Units/L (15-37); BLOOD UREA NITROGEN 14 mg/dL (7-18); CALCIUM 9.7 mg/dL (8.5-10.1); CHLORIDE 100 mmol/L (98-107); COR CA(FOR HYPOALB) 10.3 mg/dL (8.5-10.1); CREATININE 0.69 mg/dL (0.55-1.02); SODIUM 132 mmol/L (136-145); TOTAL PROTEIN 6.7 g/dL (6.4-8.2); eGFR NON BLACK RACES > 60 (>60)
[2018-02-02] MEDS: MILK OF MAGNESIA PO SCH (08:22)
[2018-02-02] MEDS: PLAVIX PO SCH (08:23)
[2018-02-02] MEDS: MEGACE PO SCH (08:23)
[2018-02-02] MEDS: LOPRESSOR TAB 50 MG PO SCH ×2 (08:23→20:58)
[2018-02-02] MEDS: K-LYTE EFFERVESCENT PO SCH (08:23)
[2018-02-02] MEDS: ASPIRIN PO SCH (08:23)
[2018-02-02] MEDS: PROTONIX TAB 40 MG PO SCH (08:24)
[2018-02-02] MEDS: PEPCID TAB 20 MG PO SCH ×2 (08:24→20:58)
[2018-02-02] MEDS: CLARITIN PO SCH (08:24)
[2018-02-02] MEDS: VITAMIN B-12 PO SCH (08:24)
[2018-02-02] MEDS: MACROBID CAP 100 MG EXT REL PO SCH ×2 (08:24→20:58)
[2018-02-02] MEDS: COZAAR PO SCH (08:24)
--- NOTE | 2018-02-02 13:42 | PCM.PROG ---
Progress Note - Progress Note for Day of Date: 02/01/18 - Subjective Subjective: WAS ADMITTED FOR ALTERED MENTAL STATUS AND HYPOKALEMIA. BRAIN MRI REVEALED A NEW CVA. TODAY, SHE IS LYING IN BED WITH EYES CLOSED ON MORNING ROUNDS. SHE CONTINUES WITH DISORIENTATION, AGITATION, AND GENERALIZED WEAKNESS. SHE CONTINUES TO REQUIRE MODERATE ASSISTANCE FOR AMBULATION AND ADLs. ON EXAMINATION, HEART IS REGULAR IN RATE AND RHYTHM. BILATERAL LUNGS CONTINUE WITH DIMINISHED LUNG SOUNDS THROGHOUT. ABDOMEN IS ROUND, SOFT, AND NON-TENDER WITH NORMAL BOWEL SOUNDS NOTED IN ALL QUADRANTS. HER VITALS THIS MORNING ARE 97.9-62-20-97%-140/88. LABS WERE OBTAINED. SODIUM IS 135, OTHERWISE, SHE REMAINS HEMODYNAMICALLY STABLE TODAY. URINE CULTURE REPORTED GROWTH OF ENTEROCOCCUS FAECALIS. PHYSICAL THERAPY CONTINUES TO WORK WITH PATIENT DAILY. CASE MANAGEMENT IS CHECKING INTO OUR OPTIONS FOR PLACEMENT. TODAY, WE WILL START HER ON MACROBID 100MG PO BID. OTHERWISE, WE WILL CONTINUE WITH CURRENT PLAN OF CARE TODAY. WE WILL FOLLOW UP WITH AM LABS AND CONTINUE TO MONITOR PATIENT. - Past Medical Family Social History Past Med/Fam/Surg Hx: No changes since H&P Allergies: Allergies amoxicillin Allergy (Verified 07/12/17 11:49) Penicillins Allergy (Verified 07/12/17 11:49) - Review of Systems ROS: No change since H&P - Vital Signs and I&O's Vital Signs: Temperature 97.9 F Pulse Rate [Apical] 68 Pulse Rate 70 Respiratory Rate 20 Blood Pressure [Left Arm] 165/69 Blood Pressure [Right Calf] 164/73 Blood Pressure [Right Arm] 160/68 Blood Pressure 132/62 O2 Sat by Pulse Oximetry 91 Intake and Output: Intake & Output 01/31/18 02/01/18 02/02/18 02/03/18 11:59 11:59 11:59 11:59 Intake Total 690 / 690 661 / 661 850 / 850 Output Total 800 / 800 600 / 600 200 / 200 Balance -110 / -110 61 / 61 650 / 650 - Physical Exam Oriented: Not Oriented Eyes: Normal Ear: Normal Nose: Normal Throat: Normal Respiratory: Diminished Cardiovascular: Normal : Normal Auscultation: Bowel Sounds: Normal Palpation: Normal Tenderness: Normal Skin: Normal Musculoskeletal: Instability Psychiatric: Agitation Mood Description: Calm Affect: Flat Speech Pattern: Clear, Inappropriate - Laboratory and Diagnostics Result Diagrams: 02/02/18 05:36 02/02/18 05:36 Labs: 01/30/18 19:27 Urine,Catheterized Urine Culture - Final Enterococcus Faecalis 01/23/18 10:13 Urine,Clean Catch Urine Culture - Final Laboratory WBC 6.9 X10^3/uL (3.6-10.0) 02/02/18 05:36 RBC 3.89 X10^6/uL (3.5-5.4) 02/02/18 05:36 Hgb 12.9 g/dL (12.0-16.0) 02/02/18 05:36 Hct 36.4 % (36.0-47.0) 02/02/18 05:36 MCV 93.5 fL (80.0-100.0) 02/02/18 05:36 MCH 33.0 pg (27.0-34.0) 02/02/18 05:36 MCHC 35.3 g/dL (33.0-35.0) H 02/02/18 05:36 RDW 13.5 % (11.6-16.5) 02/02/18 05:36 Plt Count 337 X10^3/uL (150.0-450.0) 02/02/18 05:36 MPV 7.4 fL (7.4-11.0) 02/02/18 05:36 Neut % (Auto) 63.7 % (42.0-75.0) 02/02/18 05:36 Lymph % (Auto) 21.8 % (21.0-51.0) 02/02/18 05:36 [place] % (Auto) 10.8 % (0.0-13.0) 02/02/18 05:36 Eos % (Auto) 2.6 % (0.9-2.9) 02/02/18 05:36 Baso % (Auto) 1.1 % (0.2-1.0) H 02/02/18 05:36 Neut # (Auto) 4.4 x10^3/uL (2.2-4.8) 02/02/18 05:36 Lymph # (Auto) 1.5 X10^3/uL (1.3-2.9) 02/02/18 05:36 [place] # (Auto) 0.7 x10^3/uL (0.3-0.8) 02/02/18 05:36 Eos # (Auto) 0.2 x10^3/uL (0.0-0.2) 02/02/18 05:36 Baso # (Auto) 0.1 X10^3/uL (0.0-0.1) 02/02/18 05:36 Absolute Nucleated RBC 0.1 /100WBC 02/02/18 05:36 INR Target Range - 01/22/18 21:05 INR 1.03 (0.8-1.3) 01/22/18 21:05 APTT 28.1 SECONDS (22.9-36.5) 01/22/18 21:05 PTT Comment - 01/22/18 21:05 D-Dimer 1310 ng/mL (0-400) H* 01/22/18 21:05 Sodium 132 mmol/L (136-145) L 02/02/18 05:36 Corrected Sodium TNP 02/02/18 05:36 Potassium 4.1 mmol/L (3.5-5.1) 02/02/18 05:36 Chloride 100 mmol/L (98-107) 02/02/18 05:36 Carbon Dioxide 21.0 mmol/L (21-32) 02/02/18 05:36 BUN 14 mg/dL (7-18) 02/02/18 05:36 Creatinine 0.69 mg/dL (0.55-1.02) 02/02/18 05:36 Est GFR (MDRD) Af Amer > 60 (>60) 02/02/18 05:36 Est GFR (MDRD) Non-Af > 60 (>60) 02/02/18 05:36 Glucose 88 mg/dL (65-99) 02/02/18 05:36 Calcium 9.7 mg/dL (8.5-10.1) 02/02/18 05:36 Corrected Calcium 10.3 mg/dL (8.5-10.1) H 02/02/18 05:36 Magnesium 1.7 mg/dL (1.7-2.9) 01/23/18 05:57 Total Bilirubin 0.50 mg/dL (0.2-1.0) 02/02/18 05:36 AST 22 Units/L (15-37) 02/02/18 05:36 ALT 32 Units/L (12-78) 02/02/18 05:36 Alkaline Phosphatase 93 Units/L (46-116) 02/02/18 05:36 Creatine Kinase 78 Units/L (26-192) 01/22/18 21:05 CK-MB (CK-2) 1.3 ng/mL (0-4.0) 01/22/18 21:05 CK/CKMB % Calc 1.7 % (<4) 01/22/18 21:05 Troponin I 0.05 ng/mL (0-1.5) 01/22/18 21:05 Total Protein 6.7 g/dL (6.4-8.2) 02/02/18 05:36 Albumin 3.2 g/dL (3.4-5.0) L 02/02/18 05:36 Globulin 3.5 g/dL (2.5-4.5) 02/02/18 05:36 Albumin/Globulin Ratio 0.9 Ratio (1.1-2.1) L 02/02/18 05:36 Specimen Type Catherized urine 01/30/18 19:27 Urine Color Yellow (YELLOW) 01/30/18 19:27 Urine Appearance Hazy (CLEAR) 01/30/18 19:27 Urine pH 6.0 (5.0 - 8.0) 01/30/18 19:27 Ur Specific [place] 1.020 (1.000-1.030) 01/30/18 19:27 Urine Protein 2+ (NEGATIVE) 01/30/18 19: Urine Glucose (UA) Negative (NEGATIVE) 01/30/18 19: Urine Ketones Negative (NEGATIVE) 01/30/18 19:27 Urine Occult Blood 1+ (NEGATIVE) 01/30/18 19: Urine Nitrite Positive (NEGATIVE) 01/30/18 19: Urine Bilirubin Negative (NEGATIVE) 01/30/18 19: Urine Urobilinogen 1+ (NORMAL) 01/30/18 19:27 Ur Leukocyte Esterase 2+ (NEGATIVE) 01/30/18 19:27 Urine RBC 0-2 /HPF (NONE SEEN) 01/30/18 19: Urine WBC 3-5 /HPF (NONE SEEN) 01/30/18 19:27 Ur Squamous Epith Cells Rare /HPF (NEGATIVE) 01/30/18 19:27 Amorphous Sediment Trace /HPF (NEGATIVE) 01/30/18 19:27 Urine Bacteria 4+ /HPF (NEGATIVE) 01/30/18 19:27 Ur Culture Indicated? Yes/culture set up 01/30/18 19:27 - Plan (1) Acute cerebrovascular accident (CVA) Status: Acute Plan: CONTINUE ASPIRIN, LIPITOR 20MG PO HS, CONTINUE PLAVIX, CONTINUE TO MONITOR (2) Enterococcus UTI Status: Acute Plan: MACROBID 100MG PO BID, CONTINUE TO MONITOR (3) Altered mental status Status: Acute Qualifiers: Altered mental status type: transient alteration of awareness Qualified Code(s): R40.4 - Transient alteration of awareness Plan: XANAX 0.5MG PO TID, HALDOL IM, CONTINUE TO MONITOR (4) Syncope and collapse Status: Acute (5) Vascular dementia Status: Acute Qualifiers: Dementia behavioral disturbance: with behavioral disturbance Qualified Code (s): F01.51 - Vascular dementia with behavioral disturbance (6) Weakness generalized Status: Acute (7) History of CVA (cerebrovascular accident) Status: Chronic
--- NOTE | 2018-02-02 13:49 | PCM.PROG ---
Progress Note - Progress Note for Day of Date: 02/02/18 - Subjective Subjective: IS BEING TREATED FOR AN ACUTE CVA. TODAY, SHE IS LYING IN BED, ALERT ON MORNING ROUNDS. SHE CONTINUES WITH DISORIENTATION, AGITATION AT TIMES, AND GENERALIZED WEAKNESS. SHE CONTINUES TO REQUIRE MODERATE ASSISTANCE FOR AMBULATION AND ADLs. ON EXAMINATION, HEART IS REGULAR IN RATE AND RHYTHM. BILATERAL LUNGS CONTINUE WITH DIMINISHED LUNG SOUNDS THROGHOUT. ABDOMEN IS ROUND , SOFT, AND NON-TENDER WITH NORMAL BOWEL SOUNDS NOTED IN ALL QUADRANTS. HER VITALS THIS MORNING ARE 98.4-68-20-91%-165/69. LABS WERE OBTAINED. SODIUM IS 132 , OTHERWISE, SHE REMAINS HEMODYNAMICALLY STABLE TODAY. SHE CONTINUES ON IV ANTIBIOTICS FOR GROWTH OF ENTEROCOCCUS FAECALIS IN URINE. PHYSICAL THERAPY CONTINUES TO WORK WITH PATIENT DAILY. CASE MANAGEMENT IS ARRANGEMENT AT A [facility] FOR FURTHER PHYSICAL THERAPY AND REHABILITATION. OTHERWISE, WE WILL CONTINUE WITH CURRENT PLAN OF CARE TODAY. WE WILL FOLLOW UP WITH AM LABS AND CONTINUE TO MONITOR PATIENT. - Past Medical Family Social History Past Med/Fam/Surg Hx: No changes since H&P Allergies: Allergies amoxicillin Allergy (Verified 07/12/17 11:49) Penicillins Allergy (Verified 07/12/17 11:49) - Review of Systems ROS: No change since H&P - Vital Signs and I&O's Vital Signs: Temperature 97.9 F Pulse Rate [Apical] 68 Pulse Rate 70 Respiratory Rate 20 Blood Pressure [Left Arm] 165/69 Blood Pressure [Right Calf] 164/73 Blood Pressure [Right Arm] 160/68 Blood Pressure 132/62 O2 Sat by Pulse Oximetry 91 Intake and Output: Intake & Output 01/31/18 02/01/18 02/02/18 02/03/18 11:59 11:59 11:59 11:59 Intake Total 690 / 690 661 / 661 850 / 850 Output Total 800 / 800 600 / 600 200 / 200 Balance -110 / -110 61 / 61 650 / 650 - Physical Exam Oriented: Not Oriented Eyes: Normal Ear: Normal Nose: Normal Throat: Normal Respiratory: Normal Cardiovascular: Normal : Normal Auscultation: Bowel Sounds: Normal Palpation: Normal Tenderness: Normal Skin: Normal Musculoskeletal: Instability Psychiatric: Agitation Mood Description: Calm Affect: Flat Speech Pattern: Clear, Inappropriate - Laboratory and Diagnostics Result Diagrams: 02/02/18 05:36 02/02/18 05:36 Labs: 01/30/18 19:27 Urine,Catheterized Urine Culture - Final Enterococcus Faecalis 01/23/18 10:13 Urine,Clean Catch Urine Culture - Final Laboratory WBC 6.9 X10^3/uL (3.6-10.0) 02/02/18 05:36 RBC 3.89 X10^6/uL (3.5-5.4) 02/02/18 05:36 Hgb 12.9 g/dL (12.0-16.0) 02/02/18 05:36 Hct 36.4 % (36.0-47.0) 02/02/18 05:36 MCV 93.5 fL (80.0-100.0) 02/02/18 05:36 MCH 33.0 pg (27.0-34.0) 02/02/18 05:36 MCHC 35.3 g/dL (33.0-35.0) H 02/02/18 05:36 RDW 13.5 % (11.6-16.5) 02/02/18 05:36 Plt Count 337 X10^3/uL (150.0-450.0) 02/02/18 05:36 MPV 7.4 fL (7.4-11.0) 02/02/18 05:36 Neut % (Auto) 63.7 % (42.0-75.0) 02/02/18 05:36 Lymph % (Auto) 21.8 % (21.0-51.0) 02/02/18 05:36 [place] % (Auto) 10.8 % (0.0-13.0) 02/02/18 05:36 Eos % (Auto) 2.6 % (0.9-2.9) 02/02/18 05:36 Baso % (Auto) 1.1 % (0.2-1.0) H 02/02/18 05:36 Neut # (Auto) 4.4 x10^3/uL (2.2-4.8) 02/02/18 05:36 Lymph # (Auto) 1.5 X10^3/uL (1.3-2.9) 02/02/18 05:36 [place] # (Auto) 0.7 x10^3/uL (0.3-0.8) 02/02/18 05:36 Eos # (Auto) 0.2 x10^3/uL (0.0-0.2) 02/02/18 05:36 Baso # (Auto) 0.1 X10^3/uL (0.0-0.1) 02/02/18 05:36 Absolute Nucleated RBC 0.1 /100WBC 02/02/18 05:36 INR Target Range - 01/22/18 21:05 INR 1.03 (0.8-1.3) 01/22/18 21:05 APTT 28.1 SECONDS (22.9-36.5) 01/22/18 21:05 PTT Comment - 01/22/18 21:05 D-Dimer 1310 ng/mL (0-400) H* 01/22/18 21:05 Sodium 132 mmol/L (136-145) L 02/02/18 05:36 Corrected Sodium TNP 02/02/18 05:36 Potassium 4.1 mmol/L (3.5-5.1) 02/02/18 05:36 Chloride 100 mmol/L (98-107) 02/02/18 05:36 Carbon Dioxide 21.0 mmol/L (21-32) 02/02/18 05:36 BUN 14 mg/dL (7-18) 02/02/18 05:36 Creatinine 0.69 mg/dL (0.55-1.02) 02/02/18 05:36 Est GFR (MDRD) Af Amer > 60 (>60) 02/02/18 05:36 Est GFR (MDRD) Non-Af > 60 (>60) 02/02/18 05:36 Glucose 88 mg/dL (65-99) 02/02/18 05:36 Calcium 9.7 mg/dL (8.5-10.1) 02/02/18 05:36 Corrected Calcium 10.3 mg/dL (8.5-10.1) H 02/02/18 05:36 Magnesium 1.7 mg/dL (1.7-2.9) 01/23/18 05:57 Total Bilirubin 0.50 mg/dL (0.2-1.0) 02/02/18 05:36 AST 22 Units/L (15-37) 02/02/18 05:36 ALT 32 Units/L (12-78) 02/02/18 05:36 Alkaline Phosphatase 93 Units/L (46-116) 02/02/18 05:36 Creatine Kinase 78 Units/L (26-192) 01/22/18 21:05 CK-MB (CK-2) 1.3 ng/mL (0-4.0) 01/22/18 21:05 CK/CKMB % Calc 1.7 % (<4) 01/22/18 21:05 Troponin I 0.05 ng/mL (0-1.5) 01/22/18 21:05 Total Protein 6.7 g/dL (6.4-8.2) 02/02/18 05:36 Albumin 3.2 g/dL (3.4-5.0) L 02/02/18 05:36 Globulin 3.5 g/dL (2.5-4.5) 02/02/18 05:36 Albumin/Globulin Ratio 0.9 Ratio (1.1-2.1) L 02/02/18 05:36 Specimen Type Catherized urine 01/30/18 19:27 Urine Color Yellow (YELLOW) 01/30/18 19: Urine Appearance Hazy (CLEAR) 01/30/18 19:27 Urine pH 6.0 (5.0 - 8.0) 01/30/18 19: Ur Specific [place] 1.020 (1.000-1.030) 01/30/18 19:27 Urine Protein 2+ (NEGATIVE) 01/30/18 19: Urine Glucose (UA) Negative (NEGATIVE) 01/30/18 19: Urine Ketones Negative (NEGATIVE) 01/30/18 19: Urine Occult Blood 1+ (NEGATIVE) 01/30/18 19: Urine Nitrite Positive (NEGATIVE) 01/30/18 19: Urine Bilirubin Negative (NEGATIVE) 01/30/18 19: Urine Urobilinogen 1+ (NORMAL) 01/30/18 19: Ur Leukocyte Esterase 2+ (NEGATIVE) 01/30/18 19:27 Urine RBC 0-2 /HPF (NONE SEEN) 01/30/18 19: Urine WBC 3-5 /HPF (NONE SEEN) 01/30/18 19: Ur Squamous Epith Cells Rare /HPF (NEGATIVE) 01/30/18 19: Amorphous Sediment Trace /HPF (NEGATIVE) 01/30/18 19:27 Urine Bacteria 4+ /HPF (NEGATIVE) 01/30/18 19:27 Ur Culture Indicated? Yes/culture set up 01/30/18 19:27 - Plan (1) Acute cerebrovascular accident (CVA) Status: Acute Plan: CONTINUE ASPIRIN, LIPITOR 20MG PO HS, CONTINUE PLAVIX, CONTINUE TO MONITOR (2) Enterococcus UTI Status: Acute Plan: MACROBID 100MG PO BID, CONTINUE TO MONITOR (3) Altered mental status Status: Acute Qualifiers: Altered mental status type: transient alteration of awareness Qualified Code(s): R40.4 - Transient alteration of awareness Plan: XANAX 0.5MG PO TID, HALDOL IM, CONTINUE TO MONITOR (4) Syncope and collapse Status: Acute (5) Vascular dementia Status: Acute Qualifiers: Dementia behavioral disturbance: with behavioral disturbance Qualified Code (s): F01.51 - Vascular dementia with behavioral disturbance (6) Weakness generalized Status: Acute (7) History of CVA (cerebrovascular accident) Status: Chronic
[2018-02-02] MEDS: LIPITOR TAB 20 MG PO SCH (20:58)
[2018-02-03 06:17] LABS: BASOPHILS # (AUTO) 0.1 X10^3/uL (0.0-0.1); BASOPHILS % (AUTO) 1.2 % (0.2-1.0); EOSINOPHILS # (AUTO) 0.2 x10^3/uL (0.0-0.2); EOSINOPHILS % (AUTO) 2.9 % (0.9-2.9); HEMATOCRIT 36.4 % (36.0-47.0); HEMOGLOBIN 12.9 g/dL (12.0-16.0); LYMPHOCYTES # (AUTO) 1.8 X10^3/uL (1.3-2.9); LYMPHOCYTES % (AUTO) 25.9 % (21.0-51.0); MEAN CORPUSCULAR HEMOGLOBIN 32.9 pg (27.0-34.0); MEAN CORPUSCULAR HGB CONC 35.3 g/dL (33.0-35.0); MEAN CORPUSCULAR VOLUME 93.2 fL (80.0-100.0); MEAN PLATELET VOLUME 7.3 fL (7.4-11.0); MONOCYTES # (AUTO) 0.9 x10^3/uL (0.3-0.8); MONOCYTES % (AUTO) 13.4 % (0.0-13.0); NEUTROPHILS % (AUTO) 56.6 % (42.0-75.0); PLATELET COUNT 337 X10^3/uL (150.0-450.0); RED CELL DISTRIBUTION WIDTH 13.7 % (11.6-16.5)
[2018-02-03 06:45] LABS: ALANINE AMINOTRANSFERASE 31 Units/L (12-78); ALBUMIN 3.1 g/dL (3.4-5.0); ALKALINE PHOSPHATASE 97 Units/L (46-116); ASPARTATE AMINO TRANSFERASE 18 Units/L (15-37); BLOOD UREA NITROGEN 19 mg/dL (7-18); CALCIUM 9.8 mg/dL (8.5-10.1); CARBON DIOXIDE 23.2 mmol/L (21-32); CHLORIDE 101 mmol/L (98-107); COR CA(FOR HYPOALB) 10.5 mg/dL (8.5-10.1); CREATININE 0.69 mg/dL (0.55-1.02); SODIUM 133 mmol/L (136-145); TOTAL PROTEIN 6.7 g/dL (6.4-8.2); eGFR NON BLACK RACES > 60 (>60)
[2018-02-03] MEDS: MILK OF MAGNESIA PO SCH (08:56)
[2018-02-03] MEDS: PLAVIX PO SCH (08:57)
[2018-02-03] MEDS: LOPRESSOR TAB 50 MG PO SCH ×2 (08:57→20:26)
[2018-02-03] MEDS: VITAMIN B-12 PO SCH (08:57)
[2018-02-03] MEDS: MACROBID CAP 100 MG EXT REL PO SCH ×2 (08:57→20:26)
[2018-02-03] MEDS: ASPIRIN PO SCH (08:57)
[2018-02-03] MEDS: K-LYTE EFFERVESCENT PO SCH (08:57)
[2018-02-03] MEDS: PROTONIX TAB 40 MG PO SCH (08:58)
[2018-02-03] MEDS: COZAAR PO SCH (08:58)
[2018-02-03] MEDS: PEPCID TAB 20 MG PO SCH ×2 (08:58→20:26)
[2018-02-03] MEDS: CLARITIN PO SCH (08:58)
[2018-02-03] MEDS: MEGACE PO SCH (08:58)
--- NOTE | 2018-02-03 19:53 | PCM.PROG ---
Progress Note - Progress Note for Day of Date: 02/03/18 - Subjective Subjective: IS BEING TREATED FOR AN ACUTE CVA. TODAY, SHE IS LYING IN BED, ALERT ON MORNING ROUNDS. SHE CONTINUES WITH DISORIENTATION, AGITATION AT TIMES, AND GENERALIZED WEAKNESS. SHE CONTINUES TO REQUIRE MODERATE ASSISTANCE FOR AMBULATION AND ADLs. ON EXAMINATION, HEART IS REGULAR IN RATE AND RHYTHM. BILATERAL LUNGS CONTINUE WITH DIMINISHED LUNG SOUNDS THROGHOUT. ABDOMEN IS ROUND , SOFT, AND NON-TENDER WITH NORMAL BOWEL SOUNDS NOTED IN ALL QUADRANTS. HER VITALS THIS MORNING ARE 98.0-66-18-95%-122/58. LABS WERE OBTAINED. SODIUM IS 132 , OTHERWISE, SHE REMAINS HEMODYNAMICALLY STABLE TODAY. SHE CONTINUES ON IV ANTIBIOTICS FOR GROWTH OF ENTEROCOCCUS FAECALIS IN URINE. PHYSICAL THERAPY CONTINUES TO WORK WITH PATIENT DAILY. PATIENT HAS BEEN ACCEPTED AT A [facility] IN [place], [place]. A PRECERT IS PENDING. OTHERWISE, WE WILL CONTINUE WITH CURRENT PLAN OF CARE TODAY. WE WILL FOLLOW UP WITH AM LABS AND CONTINUE TO MONITOR PATIENT. - Past Medical Family Social History Past Med/Fam/Surg Hx: No changes since H&P Allergies: Allergies amoxicillin Allergy (Verified 07/12/17 11:49) Penicillins Allergy (Verified 07/12/17 11:49) - Review of Systems ROS: No change since H&P - Vital Signs and I&O's Vital Signs: Temperature 98.5 F Pulse Rate [Apical] 74 Pulse Rate 70 Respiratory Rate 20 Blood Pressure [Left Arm] 143/67 Blood Pressure [Right Calf] 164/73 Blood Pressure [Right Arm] 160/68 Blood Pressure 132/62 O2 Sat by Pulse Oximetry 96 Intake and Output: Intake & Output 02/01/18 02/02/18 02/03/18 02/04/18 11:59 11:59 11:59 11:59 Intake Total 661 / 661 850 / 850 560 / 560 320 / 320 Output Total 600 / 600 200 / 200 Balance 61 / 61 650 / 650 560 / 560 320 / 320 - Physical Exam Oriented: Not Oriented Eyes: Normal Ear: Normal Nose: Normal Throat: Normal Respiratory: Normal Cardiovascular: Normal : Normal Auscultation: Bowel Sounds: Normal Tenderness: Normal Skin: Normal Musculoskeletal: Instability Psychiatric: Agitation Mood Description: Calm Affect: Flat Speech Pattern: Clear, Inappropriate - Laboratory and Diagnostics Result Diagrams: 02/03/18 05:50 02/03/18 05:50 Labs: 01/30/18 19:27 Urine,Catheterized Urine Culture - Final Enterococcus Faecalis 01/23/18 10:13 Urine,Clean Catch Urine Culture - Final Laboratory WBC 7.0 X10^3/uL (3.6-10.0) 02/03/18 05:50 RBC 3.90 X10^6/uL (3.5-5.4) 02/03/18 05:50 Hgb 12.9 g/dL (12.0-16.0) 02/03/18 05:50 Hct 36.4 % (36.0-47.0) 02/03/18 05:50 MCV 93.2 fL (80.0-100.0) 02/03/18 05:50 MCH 32.9 pg (27.0-34.0) 02/03/18 05:50 MCHC 35.3 g/dL (33.0-35.0) H 02/03/18 05:50 RDW 13.7 % (11.6-16.5) 02/03/18 05:50 Plt Count 337 X10^3/uL (150.0-450.0) 02/03/18 05:50 MPV 7.3 fL (7.4-11.0) L 02/03/18 05:50 Neut % (Auto) 56.6 % (42.0-75.0) 02/03/18 05:50 Lymph % (Auto) 25.9 % (21.0-51.0) 02/03/18 05:50 [facility] % (Auto) 13.4 % (0.0-13.0) H 02/03/18 05:50 Eos % (Auto) 2.9 % (0.9-2.9) 02/03/18 05:50 Baso % (Auto) 1.2 % (0.2-1.0) H 02/03/18 05:50 Neut # (Auto) 4.0 x10^3/uL (2.2-4.8) 02/03/18 05:50 Lymph # (Auto) 1.8 X10^3/uL (1.3-2.9) 02/03/18 05:50 [facility] # (Auto) 0.9 x10^3/uL (0.3-0.8) H 02/03/18 05:50 Eos # (Auto) 0.2 x10^3/uL (0.0-0.2) 02/03/18 05:50 Baso # (Auto) 0.1 X10^3/uL (0.0-0.1) 02/03/18 05:50 Absolute Nucleated RBC 0.1 /100WBC 02/03/18 05:50 INR Target Range - 01/22/18 21:05 INR 1.03 (0.8-1.3) 01/22/18 21:05 APTT 28.1 SECONDS (22.9-36.5) 01/22/18 21:05 PTT Comment - 01/22/18 21:05 D-Dimer 1310 ng/mL (0-400) H* 01/22/18 21:05 Sodium 133 mmol/L (136-145) L 02/03/18 05:50 Corrected Sodium TNP 02/03/18 05:50 Potassium 4.1 mmol/L (3.5-5.1) 02/03/18 05:50 Chloride 101 mmol/L (98-107) 02/03/18 05:50 Carbon Dioxide 23.2 mmol/L (21-32) 02/03/18 05:50 BUN 19 mg/dL (7-18) H 02/03/18 05:50 Creatinine 0.69 mg/dL (0.55-1.02) 02/03/18 05:50 Est GFR (MDRD) Af Amer > 60 (>60) 02/03/18 05:50 Est GFR (MDRD) Non-Af > 60 (>60) 02/03/18 05:50 Glucose 92 mg/dL (65-99) 02/03/18 05:50 Calcium 9.8 mg/dL (8.5-10.1) 02/03/18 05:50 Corrected Calcium 10.5 mg/dL (8.5-10.1) H 02/03/18 05:50 Magnesium 1.7 mg/dL (1.7-2.9) 01/23/18 05:57 Total Bilirubin 0.40 mg/dL (0.2-1.0) 02/03/18 05:50 AST 18 Units/L (15-37) 02/03/18 05:50 ALT 31 Units/L (12-78) 02/03/18 05:50 Alkaline Phosphatase 97 Units/L (46-116) 02/03/18 05:50 Creatine Kinase 78 Units/L (26-192) 01/22/18 21:05 CK-MB (CK-2) 1.3 ng/mL (0-4.0) 01/22/18 21:05 CK/CKMB % Calc 1.7 % (<4) 01/22/18 21:05 Troponin I 0.05 ng/mL (0-1.5) 01/22/18 21:05 Total Protein 6.7 g/dL (6.4-8.2) 02/03/18 05:50 Albumin 3.1 g/dL (3.4-5.0) L 02/03/18 05:50 Globulin 3.6 g/dL (2.5-4.5) 02/03/18 05:50 Albumin/Globulin Ratio 0.9 Ratio (1.1-2.1) L 02/03/18 05:50 Specimen Type Catherized urine 01/30/18 19:27 Urine Color Yellow (YELLOW) 01/30/18 19:27 Urine Appearance Hazy (CLEAR) 01/30/18 19:27 Urine pH 6.0 (5.0 - 8.0) 01/30/18 19:27 Ur Specific [place] 1.020 (1.000-1.030) 01/30/18 19:27 Urine Protein 2+ (NEGATIVE) 01/30/18 19: Urine Glucose (UA) Negative (NEGATIVE) 01/30/18 19: Urine Ketones Negative (NEGATIVE) 01/30/18 19: Urine Occult Blood 1+ (NEGATIVE) 01/30/18 19: Urine Nitrite Positive (NEGATIVE) 01/30/18 19: Urine Bilirubin Negative (NEGATIVE) 01/30/18 19: Urine Urobilinogen 1+ (NORMAL) 01/30/18 19: Ur Leukocyte Esterase 2+ (NEGATIVE) 01/30/18 19: Urine RBC 0-2 /HPF (NONE SEEN) 01/30/18 19: Urine WBC 3-5 /HPF (NONE SEEN) 01/30/18 19: Ur Squamous Epith Cells Rare /HPF (NEGATIVE) 01/30/18 19:27 Amorphous Sediment Trace /HPF (NEGATIVE) 01/30/18 19:27 Urine Bacteria 4+ /HPF (NEGATIVE) 01/30/18 19:27 Ur Culture Indicated? Yes/culture set up 01/30/18 19:27 - Plan (1) Acute cerebrovascular accident (CVA) Status: Acute Plan: CONTINUE ASPIRIN, LIPITOR 20MG PO HS, CONTINUE PLAVIX, CONTINUE TO MONITOR (2) Enterococcus UTI Status: Acute Plan: MACROBID 100MG PO BID, CONTINUE TO MONITOR (3) Altered mental status Status: Acute Qualifiers: Altered mental status type: transient alteration of awareness Qualified Code(s): R40.4 - Transient alteration of awareness Plan: XANAX 0.5MG PO TID, HALDOL IM, CONTINUE TO MONITOR (4) Syncope and collapse Status: Acute (5) Vascular dementia Status: Acute Qualifiers: Dementia behavioral disturbance: with behavioral disturbance Qualified Code (s): F01.51 - Vascular dementia with behavioral disturbance (6) Weakness generalized Status: Acute (7) History of CVA (cerebrovascular accident) Status: Chronic
[2018-02-03] MEDS: XANAX PO PRN (20:26)
[2018-02-03] MEDS: LIPITOR TAB 20 MG PO SCH (20:26)
[2018-02-04 06:10] LABS: BASOPHILS # (AUTO) 0.1 X10^3/uL (0.0-0.1); BASOPHILS % (AUTO) 1.1 % (0.2-1.0); EOSINOPHILS # (AUTO) 0.3 x10^3/uL (0.0-0.2); EOSINOPHILS % (AUTO) 4.4 % (0.9-2.9); HEMATOCRIT 38.1 % (36.0-47.0); HEMOGLOBIN 13.3 g/dL (12.0-16.0); LYMPHOCYTES # (AUTO) 1.4 X10^3/uL (1.3-2.9); LYMPHOCYTES % (AUTO) 18.8 % (21.0-51.0); MEAN CORPUSCULAR HEMOGLOBIN 32.8 pg (27.0-34.0); MEAN CORPUSCULAR VOLUME 93.8 fL (80.0-100.0); MEAN PLATELET VOLUME 7.5 fL (7.4-11.0); MONOCYTES # (AUTO) 0.8 x10^3/uL (0.3-0.8); MONOCYTES % (AUTO) 11.2 % (0.0-13.0); NEUTROPHILS # (AUTO) 4.8 x10^3/uL (2.2-4.8); NEUTROPHILS % (AUTO) 64.5 % (42.0-75.0); PLATELET COUNT 344 X10^3/uL (150.0-450.0); RED BLOOD COUNT 4.06 X10^6/uL (3.5-5.4); RED CELL DISTRIBUTION WIDTH 13.6 % (11.6-16.5); WHITE BLOOD COUNT 7.5 X10^3/uL (3.6-10.0)
[2018-02-04] MEDS ORDERED: NARCAN INJ IVP ONE (06:13)
[2018-02-04] MEDS ORDERED: NARCAN INJ ONE (06:15)
[2018-02-04 06:20] LABS: ALANINE AMINOTRANSFERASE 33 Units/L (12-78); ALBUMIN 3.3 g/dL (3.4-5.0); ALKALINE PHOSPHATASE 96 Units/L (46-116); ASPARTATE AMINO TRANSFERASE 20 Units/L (15-37); BLOOD UREA NITROGEN 24 mg/dL (7-18); CALCIUM 10.2 mg/dL (8.5-10.1); CARBON DIOXIDE 22.8 mmol/L (21-32); CHLORIDE 103 mmol/L (98-107); COR CA(FOR HYPOALB) 10.8 mg/dL (8.5-10.1); CREATININE 0.94 mg/dL (0.55-1.02); SODIUM 136 mmol/L (136-145); eGFR NON BLACK RACES > 60 (>60)
[2018-02-04] MEDS ORDERED: ROMAZICON INJ 0.5 MG IVP ONE (06:32)
[2018-02-04 06:55] LABS: ABG ALLEN TEST POS; ABG BASE EXCESS -6.7 mmol/L (-2.0-2.0); ABG HCO3 16.7 mmol/L (22-26)
[2018-02-04] MEDS: CLARITIN PO SCH ×2 (09:26→13:39)
[2018-02-04] MEDS: COZAAR PO SCH ×2 (09:26→13:39)
[2018-02-04] MEDS: K-LYTE EFFERVESCENT PO SCH ×2 (09:26→13:39)
[2018-02-04] MEDS: ASPIRIN PO SCH ×2 (09:26→13:38)
[2018-02-04] MEDS: MACROBID CAP 100 MG EXT REL PO SCH ×2 (09:27→13:37)
[2018-02-04] MEDS: PLAVIX PO SCH ×2 (09:27→13:40)
[2018-02-04] MEDS: MEGACE PO SCH ×2 (09:27→13:40)
[2018-02-04] MEDS: LOPRESSOR TAB 50 MG PO SCH ×2 (09:27→13:37)
[2018-02-04] MEDS: PROTONIX TAB 40 MG PO SCH ×2 (09:27→13:41)
[2018-02-04] MEDS: PEPCID TAB 20 MG PO SCH ×2 (09:27→13:38)
[2018-02-04] MEDS: MILK OF MAGNESIA PO SCH ×2 (09:27→13:40)
[2018-02-04] MEDS: VITAMIN B-12 PO SCH ×2 (09:28→13:41)
[2018-02-04] MEDS ORDERED: LEVAQUIN PREMIX IV 750 MG 750 MG/150 ML BAG IV SCH (10:00)
[2018-02-04] MEDS ORDERED: NS 1000 ML 1,000 ML IV SCH (10:00)
[2018-02-04] MEDS ORDERED: NORMODYNE INJ 20 MG VIAL IVP PRN (10:10)
[2018-02-04] MEDS ORDERED: NORMODYNE INJ 100 MG VIAL ONE (10:12)
--- NOTE | 2018-02-04 10:12 | RAD ---
HISTORY: Shortness of breath, AMS, hypertension. Prior history of CVA and breast cancer Study: Single-view chest, done portably and upright Comparison: Chest x-ray hand CT chest done 01/22/2018 Findings: Trachea is midline. There is mild cardiomegaly with aortic uncoiling. Surgical clips are present in t he left axilla. Increased density present in the left costophrenic angle is likely secondary to overl ryder breast implant. No consolidation, pleural fluid or pneumothorax is seen. No CHF is seen. Osseous structures are intact. IMPRESSION: Hypertensive configuration. Increased density in the left costophrenic angle is secondary to the overlying breast implant. No con solidation, CHF, pleural fluid or pneumothorax is seen. Reported By:
[2018-02-04] MEDS: DUONEB 0.5 MG/3 MG NEB SCH ×2 (10:50→12:09)
[2018-02-04] MEDS: CATAPRES-TTS-1 TD SCH ×2 (13:32→15:06)
[2018-02-04 14:39] VITALS: BP 111/69
--- NOTE | 2018-03-16 22:37 | DR.CARTERD ---
- Discharge Summary for: Discharge Summary for Date of:: 02/04/18 - Admission Date Date of Admission: 01/23/18 - Admission Diagnoses Admission Diagnosis: (1) Altered mental status (2) Syncope and collapse (3) Hypokalemia (4) Weakness generalized (5) History of CVA (cerebrovascular accident) - Discharge Date Discharge Date: 02/04/18 - Discharge Diagnoses Discharge Diagnosis: (1) Acute cerebrovascular accident (CVA) (2) Enterococcus UTI (3) Altered mental status (4) Syncope and collapse (5) Vascular dementia (6) Weakness generalized (7) History of CVA (cerebrovascular accident) - Hospital Course Hospital Course: DAY ONE, MS. HDZ IS A 77 YEAR OLD PATIENT OF OURS WHO PRESENTED TO THE EMERGENCY ROOM WITH CONFUSION AFTER A FALL ON 01/22/18 IN WHICH SHE HIT HER HEAD. FAMILY STATED THE PATIENT FELL THE NIGHT PRIOR WHILE GOING TO THE BATHROOM AND HIT HER HEAD AND HAD BEEN TALKING OUT OF HER HEAD. SPOUSE STATED THAT HE WENT OUTSIDE AND CAME BACK AND SHE WAS ON THE FLOOR AGAIN. HE STATED SHE HAD A LARGE BLEED IN 2011. SPOUSE REPORTED THAT SHE HAD BEEN HAVING PROBLEMS WITH HER BALANCE. PATIENT WAS CONFUSED, STATING THAT SHE WAS 34 YEARS OLD AND DID NOT KNOW WHERE SHE WAS. SHE DENIED CHEST PAIN OR SHORTNESS OF BREATH. ON ARRIVAL VITALS WERE, 98.1-69-11-96%RA-146/62. LABS OBTAINED AND ABNORMALS WERE: MCHC 35.8, MPV 6.4, D-DIMER 1310, SODIUM 132, POTASSIUM 3.2, GLUCOSE 110, CALCIUM 10.3, AST 10, A/G RATIO 1.0. CHEST XRAY REPORTED NO ACUTE CARDIOPULMONARY DISEASE. BRAIN CT REPORTED NO GROSS EVIDENCE OF AN INTRACRANIAL PROCESS. CHEST CTA REPORTED NO PULMONARY EMBOLUS. EKG SINUS RHYTHM, RATE 72. PATIENT WAS ADMITTED TO THE HOSPITAL FOR FURTHER EVALUATION. WE STARTED NS @ 75MLS/HR AND MORPHINE IV FOR PAIN CONTROL. WE CONTINUED TO MONITOR. DAY TWO, MS. HDZ WAS ADMITTED FOR ALTERED MENTAL STATUS AND HYPOKALEMIA. SHE WAS SITTING UP IN CHAIR ON MORNING ROUNDS. SHE CONTINUED WITH DISORIENTATION AND GENERALIZED WEAKNESS. SPOUSE REPORTED THAT PATIENT HAD BEEN AGITATED AND YELLING OUT THROUGHOUT THE NIGHT. STAFF REPORTED THAT SHE HAD TRIED TO GET OUT OF BED SEVERAL TIMES. ON EXAMINATION, HEART WAS REGULAR IN RATE AND RHYTHM. BILATERAL LUNGS WERE NOTED WITH DIMINISHED LUNG SOUNDS THROUGHOUT. ABDOMEN WAS ROUND, SOFT, AND NON-TENDER WITH NORMAL BOWEL SOUNDS NOTED IN ALL QUADRANTS. HER VITALS WERE 98.9-66-24-96%-166/72. LABS WERE OBTAINED. ABNORMAL LAB VALUES INCLUDED THE FOLLOWING: HCT 35.2, CARBON DIOXIDE 20.7, ALBUMIN 3.3. CARDIAC ENZYMES AND EKGS WITHIN NORMAL LIMITS. WE STARTED SEROQUEL 50MG PO BID AND CONTINUED TO MONITOR. DAY THREE, SHE WAS LYING IN BED ON MORNING ROUNDS. SHE CONTINUED WITH DISORIENTATION AND GENERALIZED WEAKNESS. STAFF REPORTED THAT SHE HAD BEEN AGITATED THROUGHOUT THE NIGHT. ON EXAMINATION, HEART WAS REGULAR IN RATE AND RHYTHM. BILATERAL LUNGS WERE NOTED WITH DIMINISHED LUNG SOUNDS THROUGHOUT. ABDOMEN WAS ROUND, SOFT, AND NON-TENDER WITH NORMAL BOWEL SOUNDS NOTED IN ALL QUADRANTS. HER VITALS WERE 97.1-81-20-98%-139/63. LABS WERE OBTAINED. SODIUM WAS 133, OTHERWISE, LABS WNL. WE DISCONTINUED THE SEROQUEL AND STARTED ZYPREXA 2.5MG PO BID AND XANAX 0.25MG PO BID. DAY FOUR, SHE CONTINUED WITH DISORIENTATION AND GENERALIZED WEAKNESS. SPOUSE REPORTED THAT SHE DID NOT KNOW WHO HE WAS. ON EXAMINATION, HEART WAS REGULAR IN RATE AND RHYTHM. BILATERAL LUNGS CONTINUED WITH DIMINISHED LUNG SOUNDS THROUGHOUT. ABDOMEN WAS ROUND, SOFT, AND NON-TENDER WITH NORMAL BOWEL SOUNDS NOTED IN ALL QUADRANTS. HER VITALS WERE 97.7-7-19-100%-168/85. LABS WERE OBTAINED AND WNL. WE BELIEVED THE SYMPTOMS WERE LIKELY DUE TO PROGRESSED VASCULAR DEMENTIA RATHER THAN ACUTE CVA. WE CONTINUED TO MONITOR PATIENT. DAY FIVE, PATIENT WAS DIFFICULT TO AROUSE. STAFF REPORTED THAT PATIENT WAS VERY AGITATED, SCRATCHING HERSELF, PULLING HER HAIR, AND YELLING OUT THE DAY BEFORE. ON EXAMINATION, HEART WAS REGULAR IN RATE AND RHYTHM. BILATERAL LUNGS CONTINUED WITH DIMINISHED LUNG SOUNDS THROUGHOUT. ABDOMEN WAS ROUND, SOFT, AND NON-TENDER WITH NORMAL BOWEL SOUNDS NOTED IN ALL QUADRANTS. HER VITALS WERE 97.7 -72-20-98%-135/60. LABS WERE OBTAINED AND WNL. WE HELD THE HALDOL, ZYPREXA, AND ATIVAN. PATIENT HAD A HISTORY OF CVA FOR WHICH COILS WERE PLACED. WE CONTINUED TO MONITOR PATIENT. DAY SIX, SHE CONTINUED TO BE DIFFICULT TO AROUSE. ON EXAMINATION, HEART WAS REGULAR IN RATE AND RHYTHM. BILATERAL LUNGS CONTINUED WITH DIMINISHED LUNG SOUNDS THROUGHOUT. ABDOMEN WAS ROUND, SOFT, AND NON-TENDER WITH NORMAL BOWEL SOUNDS NOTED IN ALL QUADRANTS. HER VITALS WERE STABLE. LABS WERE OBTAINED AND WNL. WE CONTINUED TO HOLD THE HALDOL, ZYPREXA, AND ATIVAN. 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 WE CONTINUED TO MONITOR PATIENT. DAY SEVEN, CONTINUED TREATMENT FOR ACUTE CVA. SHE WAS LYING IN BED ON MORNING ROUNDS. SHE WAS ALERT, BUT DISORIENTED. SHE CONTINUED WITH AGITATION AND CONFUSION ACCORDING TO STAFF AND SPOUSE. ON EXAMINATION, HEART WAS REGULAR IN RATE AND RHYTHM. BILATERAL LUNGS CONTINUED WITH DIMINISHED LUNG SOUNDS THROUGHOUT. ABDOMEN WAS ROUND, SOFT, AND NON-TENDER WITH NORMAL BOWEL SOUNDS NOTED IN ALL QUADRANTS. SHE CONTINUED WITH GENERALIZED WEAKNESS. HER VITALS WERE 96.9-60-20-96%-141/65. LABS WERE OBTAINED AND WNL. WE CONSULTED [facility] AND THEY DENIED TRANSFER DUE TO THE INABILITY TO PROVIDE FOR PATIENTS NEEDS. WE DISCUSSED WITH SPOUSE THE NEED FOR AN EXTENDED PERIOD OF PHYSICAL THERAPY AND REHABILITATION. HE WAS IN AGREEMENT WITH PLAN. CASE MANAGEMENT SOUGHT OPTIONS FOR PLACEMENT. WE CONTINUED TO MONITOR PATIENT. DAY EIGHT, MS. HDZ CONTINUED TREATMENT FOR ACUTE CVA. SHE WAS LYING IN BED WITH EYES CLOSED ON MORNING ROUNDS. SPOUSE AND STAFF REPORTED THAT SHE CONTINUED WITH DISORIENTATION AND AGITATION. SHE WAS AMBULATING IN ROOM TO THE BEDSIDE COMMODE WITH MODERATE ASSISTANCE. ON EXAMINATION, HEART WAS REGULAR IN RATE AND RHYTHM. BILATERAL LUNGS CONTINUED WITH DIMINISHED LUNG SOUNDS THROUGHOUT. ABDOMEN WAS ROUND, SOFT, AND NON-TENDER WITH NORMAL BOWEL SOUNDS NOTED IN ALL QUADRANTS. SHE CONTINUED WITH GENERALIZED WEAKNESS. HER VITALS WERE 98.2-54-20-97%-134/57. LABS WERE OBTAINED AND WNL. WE CONTINUED TREATMENT AND CONTINUED TO MONITOR PATIENT. DAY NINE, SHE WAS LYING IN BED WITH EYES CLOSED ON MORNING ROUNDS. SPOUSE AND STAFF REPORTED THAT SHE CONTINUED WITH DISORIENTATION AND AGITATION. SHE REQUIRED MODERATED ASSISTANCE FOR AMBULATION AND ADLs. ON EXAMINATION, HEART WAS REGULAR IN RATE AND RHYTHM. BILATERAL LUNGS CONTINUED WITH DIMINISHED LUNG SOUNDS THROUGHOUT. ABDOMEN WAS ROUND, SOFT, AND NON-TENDER WITH NORMAL BOWEL SOUNDS NOTED IN ALL QUADRANTS. SHE CONTINUED WITH GENERALIZED WEAKNESS. HER VITALS WERE 98.9-61-21-93%-159/66. LABS WERE OBTAINED AND WNL. WE CONTINUED TREATMENT AND CONTINUED TO MONITOR PATIENT. DAY TEN, PATIENT CONTINUED WITH DISORIENTATION, AGITATION, AND GENERALIZED WEAKNESS. SHE CONTINUED TO REQUIRE MODERATE ASSISTANCE FOR AMBULATION AND ADLs. ON EXAMINATION, HEART WAS REGULAR IN RATE AND RHYTHM. HER VITALS WERE 97.9-62-20 -97%-140/88. LABS WERE OBTAINED AND WNL. URINE CULTURE REPORTED GROWTH OF ENTEROCOCCUS FAECALIS. PHYSICAL THERAPY CONTINUED TO WORK WITH PATIENT DAILY. CASE MANAGEMENT WAS CHECKING INTO OUR OPTIONS FOR PLACEMENT. WE STARTED HER ON MACROBID 100MG PO BID. DAY ELEVEN, SHE CONTINUED WITH DISORIENTATION, AGITATION AT TIMES, AND GENERALIZED WEAKNESS. SHE CONTINUED TO REQUIRE MODERATE ASSISTANCE FOR AMBULATION AND ADLs. ON EXAMINATION, HEART WAS REGULAR IN RATE AND RHYTHM. HER VITALS WERE 98.4-68-20-91%-165/69. LABS WERE OBTAINED AND SODIUM WAS 132. SHE CONTINUED ON IV ANTIBIOTICS FOR GROWTH OF ENTEROCOCCUS FAECALIS IN URINE. PHYSICAL THERAPY CONTINUED TO WORK WITH PATIENT DAILY. CASE MANAGEMENT WAS ARRANGING PLACEMENT AT A [facility] FOR FURTHER PHYSICAL THERAPY AND REHABILITATION. DAY TWELVE, SHE CONTINUED WITH DISORIENTATION, AGITATION AT TIMES, AND GENERALIZED WEAKNESS. SHE CONTINUED TO REQUIRE MODERATE ASSISTANCE FOR AMBULATION AND ADLs. ON EXAMINATION, HEART WAS REGULAR IN RATE AND RHYTHM. BILATERAL LUNGS CONTINUED WITH DIMINISHED LUNG SOUNDS THROUGHOUT. ABDOMEN WAS ROUND, SOFT, AND NON-TENDER WITH NORMAL BOWEL SOUNDS NOTED IN ALL QUADRANTS. HER VITALS WERE 98.0-66-18-95%-122/58. LABS WERE OBTAINED AND SODIUM WAS 132, OTHERWISE, NORMAL. SHE CONTINUED ON IV ANTIBIOTICS FOR GROWTH OF ENTEROCOCCUS FAECALIS IN URINE. PHYSICAL THERAPY CONTINUED TO WORK WITH PATIENT DAILY. PATIENT HAD BEEN ACCEPTED AT A [facility] FAC[facility] IN [place], [place]. A PRECERT WAS PENDING. WE CONTINUED TO MONITOR PATIENT. DAY THIRTEEN, PATIENT CONTINUED WITH DISORIENTATION AND CONFUSION. VITAL SIGNS STABLE. LABS WNL. [facility] IN [place], [place] HAD ACCEPTED PATIENT AND BED WAS AVAILABLE. WE PLANNED FOR DISCHARGE. INSTRUCTIONS FOR MEDICATIONS AND FOLLOW UP WERE DISCUSSED WITH PATIENT AND FAMILY, BOTH VOICED UNDERSTANDING. PATIENT DISCHARGED TO [facility] IN STABLE CONDITION WITH EMS. Labs: Microbiology 01/30/18 19:27 Urine,Catheterized Urine Culture - Final Enterococcus Faecalis - Discharge Medications Discharge Medications: Home Medication List aspirin [Jordon Aspirin] 1 tab PO DAILY 01/23/18 [History] atorvastatin 1 tab PO DAILY 01/23/18 [History] famotidine 2 tab PO DAILY 01/23/18 [History] losartan 1 tab PO DAILY 01/23/18 [History] megestrol 1 tab PO DAILY 01/23/18 [History] metoprolol tartrate 1 tab PO BID 01/23/18 [History] pantoprazole [Protonix] 1 tab PO DAILY 01/23/18 [History] clonidine 1 patch TOPICAL WEEKLY 01/27/18 [History] loratadine [Claritin] 1 tab PO HS 01/27/18 [History] alprazolam 1 tab PO TID #90 tab 02/01/18 [Rx] cyanocobalamin (vitamin B-12) [Vitamin B-12] 500 mcg PO DAILY tab 02/01/18 [Rx] nitrofurantoin monohyd/m-cryst [Macrobid] 100 mg PO BID #20 cap 02/01/18 [Rx] clopidogrel [Plavix] 75 mg PO DAILY #30 tab 02/04/18 [Rx] levofloxacin [Levaquin] 500 mg PO DAILY #7 tab 02/04/18 [Rx] Prescriptions: alprazolam Martir Carter clopidogrel [Plavix] Martir Carter levofloxacin [Levaquin] Martir Carter nitrofurantoin monohyd/m-cryst [Macrobid] Martir Carter - Discharge Disposition Discharge Disposition: PATIENT IS TO FOLLOW UP WITH PHYSICIAN OF CHOICE AT [facility].
== END 2018-02-04 16:30 | DRG 65 ==
LOC: ER 20:21 → ICU 20:21
PROVIDERS: ADMIT Internal Medicine; ATTEND Internal Medicine
DX: I10 Essential (primary) hypertension; M25.551 Pain in right hip; E87.1 Hypo-osmolality and hyponatremia; W18.39XA Other fall on same level, initial encounter; F01.50 Vascular dementia, unspecified severity, without behavioral disturbance, psychotic disturbance, mood disturbance, and anxiety; R94.31 Abnormal electrocardiogram [ECG] [EKG]; Z78.1 Physical restraint status; E87.6 Hypokalemia; M25.552 Pain in left hip; Y92.098 Other place in other non-institutional residence as the place of occurrence of the external cause; R55 Syncope and collapse; R26.89 Other abnormalities of gait and mobility; R13.10 Dysphagia, unspecified; S09.8XXA Other specified injuries of head, initial encounter; R53.1 Weakness; N39.0 Urinary tract infection, site not specified; R40.4 Transient alteration of awareness; K21.9 Gastro-esophageal reflux disease without esophagitis; B95.2 Enterococcus as the cause of diseases classified elsewhere; I63.8 Other cerebral infarction; E78.2 Mixed hyperlipidemia; F41.8 Other specified anxiety disorders
CPT/HCPCS: 36415; 36600; 70450; 70551; 71010; 71045; 71275; 73521; 80048; 80053; 81001; 81003; 82550; 82553; 82803; 83735; 84484; 85025; 85378; 85610; 85730; 87040; 87086; 87088; 87186; 92526; 92610; 93005; 93010; 94640; 96365; 96367; 97110; 97112; 97163; 97166; 97167; 97530; 97535; 99284; A4216; A4222; Q0177; S0179; G0378; J1630; J1956; J2270; J2310; J3490; J7030; J7050; J7620; J8499